=== PATIENT | female | born 1965 | race Caucasian/White ===

== ENCOUNTER 2017-03-16 08:01 | Observation (INO) ==
--- NOTE | 2017-03-16 08:12 | Emergency Department Note ---
Disposition Clinical Impression: Hyponatremia Chest pain Qualifiers: Chest pain type: unspecified Qualified Code(s): R07.9 - Chest pain, unspecified Disposition: Admitted As Inpatient Condition: Good Referrals: Leonard Sosa DO [Primary Care Provider] - Forms: ED Satisfaction Letter Time of Disposition: 11:15 Chest Pain HPI - General Chief Complaint: ED Chest Pain Stated Complaint: chest pain, tingling tongue, nausea Time Seen by Provider: 03/16/17 08:05 Source: patient, EMS Mode of arrival: ambulatory Limitations: no limitations Vital Signs Reviewed: Yes Nursing Notes Reviewed: Yes - History of Present Illness HPI Narrative: Patient is a 51-year-old female with past medical history of anxiety, depression , hypertension, COPD. She presents today due to right-sided chest pain, shortness of breath, numbness and tingling from head to toe. Patient states that she took her Geodon, Valium, Benadryl, blood pressure medication this morning. Around 7:20 AM, she began having right-sided chest pain with no radiation, associated shortness of breath. She was at rest when this chest pain occurred. She said that she feels very anxious. Denies any nausea, vomiting, fevers, abdominal pain, weakness. She also reports allergy to naproxen. However, she states that her allergy is nausea. She says that she may have taken naproxen this morning by accident. Severity scale (1-10): 10 - Related Data Home Medications Medication Instructions Recorded Confirmed Aclidinium [place] [Tudorza 400 mcg IH BID 04/06/15 04/06/15 Pressair] Albuterol Sulfate [Albuterol 2 puff IH Q4HR 04/06/15 04/06/15 Inhaler] Aspirin 81 mg PO QAM 04/06/15 04/06/15 BuPROPion SR (12 HR) [Wellbutrin 150 mg PO BID 04/06/15 04/06/15 SR] Budesonide/Formoterol Fumarate 2 puff IH BID 04/06/15 04/06/15 [Symbicort 160-4.5 Mcg Inhaler] Calcium Carbonate/Vitamin D3 1 tab PO DAILY 04/06/15 04/06/15 [Calcium 600+D Softgel] Celecoxib [Celebrex] 200 mg PO BID 04/06/15 04/06/15 Diazepam [Valium] 10 mg PO BID 04/06/15 04/06/15 Flexeril 04/06/15 04/06/15 Gabapentin [Neurontin] 300 mg PO TID 04/06/15 04/06/15 Hydrochlorothiazide 25 mg PO DAILY 04/06/15 04/06/15 Lactose-Reduced Food [Ensure 237 ml PO QAM 04/06/15 04/06/15 Complete] Levothyroxine Sodium [Synthroid] 25 mcg PO QAM 04/06/15 04/06/15 OxyCODONE/APAP 10/325 [Percocet 1 tab PO QID 04/06/15 04/06/15 10/325] Ziprasidone HCl [Geodon] 40 mg PO QAM 04/06/15 04/06/15 Ziprasidone HCl [Geodon] 160 mg PO HS 04/06/15 04/06/15 Zolpidem Tartrate [Ambien] 10 mg PO HS 04/06/15 04/06/15 Previous Rx's Medication Instructions Recorded Clindamycin HCl 300 mg PO TID #6 capsule 04/08/15 Albuterol Sulfate [Proair HFA] 2 puff IH Q4HR 2 Days 06/01/15 Amoxicillin/Clavulanate [Augmentin] 875 mg PO BID 10 Days 06/01/15 MethylPREDNISolone [Medrol] 4 mg PO DAILY #21 tablet 06/01/15 Mupirocin [Bactroban Oint] 1 appl NS BID 14 Days 06/01/15 Bacitracin 1 appl TP BID #1 each 12/15/15 Lidocaine Patch [Lidoderm 5% patch] 1 each TP DAILY #10 adh..patch 12/15/15 Bacitracin 28 gm TP 2-3XD PRN #28 oint...g. 10/01/16 HydrOXYzine 10 mg PO TID #30 tablet 10/01/16 diazePAM [Valium] 5 mg PO BID #8 tablet 10/01/16 Cyclobenzaprine [Flexeril] 10 mg PO Q8H PRN #10 tablet 01/09/17 Lidocaine Patch [Lidoderm 5% patch] 1 each TP DAILY #3 adh..patch 01/12/17 Allergies Allergy/AdvReac Type Severity Reaction Status Date / Time acetaminophen [From Midol] Allergy Difficulty Verified 03/16/17 08:15 Breathing Buspirone [From BuSpar] Allergy Unresponsiv Verified 03/16/17 08:15 e ibuprofen Allergy Difficulty Verified 03/16/17 08:15 Breathing pamabrom [From Midol] Allergy Difficulty Verified 03/16/17 08:15 Breathing propoxyphene [From Darvon] AdvReac Nausea Verified 03/16/17 08:15 All systems ED: reviewed and negative except as stated. Constitutional: Denies: fever Cardiovascular: Reports: chest pain Respiratory: Reports: dyspnea Gastrointestinal: Denies: abdominal pain, nausea, vomiting, diarrhea Neurological: Reports: numbness, paresthesias. Denies: headache, weakness Psychiatric: Reports: anxiety. 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 Appears somewhat anxious. She is easily distractible. She is complaining of crushing chest pain but then when asked about other medical history, she shows no signs of pain and is laughing and joking. - General Limitations: no limitations General appearance: alert, in no apparent distress - Head Head exam: atraumatic, normocephalic, normal inspection - Eye Eye exam: Present: normal appearance, PERRL, EOMI - ENT ENT exam: normal exam, normal oropharynx, mucous membranes moist - Neck Neck exam: Present: normal inspection, full ROM, trachea midline - Chest Chest inspection: Present: normal inspection, symmetric chest wall rise, tenderness (Tenderness to palpation of right sided chest wall) - Respiratory Respiratory exam: Present: normal lung sounds bilaterally - Cardiovascular Cardiovascular exam: Present: regular rate, normal rhythm, normal heart sounds - Abdominal Exam Abdominal exam: Present: soft, Non-Tender. Absent: tenderness, distention, guarding, rebound, rigidity - Extremities Exam Extremities exam: Present: normal inspection, full ROM. Absent: tenderness, pedal edema - Neurological Exam Neurological exam: Present: alert, oriented X3, CN II-XII intact, motor sensory deficit (Patient reports decreased sensation to light touch of bilateral lower extremities from knees down and decreased sensation in perioral region. No other focal neuro deficits.) - Psychiatric Psychiatric exam: Present: anxious - Skin Skin exam: Present: warm, dry, intact, normal color Course Course Narrative: Patient laughing, joking on exam. Appears somewhat anxious. She is easily distractible. She is complaining of crushing chest pain but then when asked about other medical history, she shows no signs of pain and is laughing and joking. Patient reports decreased sensation to light touch of bilateral lower extremities from knees down and decreased sensation in perioral region. No other focal neuro deficits. Vitals within normal limits. The rest of the physical exam was benign. Patient has been here multiple times for chest pain and was sent home. She has not had a heart The past. We will perform cardiac workup including EKG, chest x-ray, troponin. We will then perform a second troponin 2 hours later. If negative, we will likely send the patient home. This likely due to anxiety. EKG shows normal sinus rhythm with no acute ST changes. 10:32 and troponin negative. CBC shows no major abnormalities. BMP shows hyponatremia at 125. We will start normal saline. Patient still having chest pain. No heart catheter within the last year. We will admit for further chest pain workup and management of hyponatremia. Vital Signs Temperature 98.1 F 03/16/17 08:03 Pulse Rate 95 03/16/17 08:03 Respiratory Rate 18 03/16/17 08:03 Blood Pressure 147/102 03/16/17 08:03 O2 Sat by Pulse Oximetry 100 03/16/17 08:03 Temperature 98.1 F 03/16/17 08:03 Pulse Rate 94 03/16/17 11:10 Respiratory Rate 18 03/16/17 11:10 Blood Pressure 142/98 03/16/17 11:10 O2 Sat by Pulse Oximetry 98 03/16/17 11:10 Oxygen Delivery Oxygen Delivery Room Air Chest Pain - MDM Narrative Medical decision making narrative: and troponin negative. CBC shows no major abnormalities. BMP shows hyponatremia at 125. We will start normal saline. Patient still having chest pain. No heart catheter within the last year. We will admit for further chest pain workup and management of hyponatremia. - Medical Records Medical records reviewed: Yes I reviewed the patient's medical records. - Lab Data Lab results reviewed: Yes I reviewed the patient's lab results. Result diagrams: 03/16/17 08:58 03/16/17 08:58 Lab Results 03/16/17 03/16/17 03/16/17 Range/Units 08:58 08:58 08:58 WBC 5.1 (4.3-11.1) K/mcL RBC 4.14 (3.82-4.97) M/mcL Hgb 13.5 (11.5-15.4) g/dL Hct 37.2 (35.3-44.9) % MCV 89.9 (83.0-100.0) fL MCH 32.6 (28.0-33.3) pg MCHC 36.3 H (31.6-35.5) g/dL RDW 11.4 L (11.5-14.5) % Plt Count 335 (140-400) K/mcL MPV 8.2 L (9.4-12.4) fL Immature Gran % 0.2 (0-4) % Seg Neutrophils % 74.8 % Lymphocytes % 16.5 % Monocytes % 7.9 % Eosinophils % 0.2 % Basophils % 0.4 % Neutrophils # 3.8 (1.6-8.9) K/mcL Lymphocytes # 0.8 (0.6-4.6) K/mcL Monocytes # 0.4 (0.0-1.3) K/mcL Eosinophils # 0.0 (0.0-0.6) K/mcL Basophils # 0.0 (0.0-0.2) K/mcL PT 10.8 (9.4-12.1) Seconds INR 1.0 APTT 39.7 H (26.0-36.0) Seconds Sodium 125 L (136-145) mEq/L Potassium 3.7 (3.5-4.5) mEq/L Chloride 93 L (98-109) mEq/L Carbon Dioxide 27 (19-29) mEq/L BUN 8 (7-20) mg/dL Creatinine 0.74 (0.57-1.11) mg/dL Est GFR ( Amer) > 60 (> 60) Est GFR (Non-Af Amer) > 60 (> 60) BUN/Creatinine Ratio 11 (6-26) Glucose 99 (70-99) mg/dL Calculated Osmolality 258 L (280-300) Calcium 9.0 (8.6-10.8) mg/dL Troponin I (0-0.03) ng/mL 03/16/17 Range/Units 08:58 WBC (4.3-11.1) K/mcL RBC (3.82-4.97) M/mcL Hgb (11.5-15.4) g/dL Hct (35.3-44.9) % MCV (83.0-100.0) fL MCH (28.0-33.3) pg MCHC (31.6-35.5) g/dL RDW (11.5-14.5) % Plt Count (140-400) K/mcL MPV (9.4-12.4) fL Immature Gran % (0-4) % Seg Neutrophils % % Lymphocytes % % Monocytes % % Eosinophils % % Basophils % % Neutrophils # (1.6-8.9) K/mcL Lymphocytes # (0.6-4.6) K/mcL Monocytes # (0.0-1.3) K/mcL Eosinophils # (0.0-0.6) K/mcL Basophils # (0.0-0.2) K/mcL PT (9.4-12.1) Seconds INR APTT (26.0-36.0) Seconds Sodium (136-145) mEq/L Potassium (3.5-4.5) mEq/L Chloride (98-109) mEq/L Carbon Dioxide (19-29) mEq/L BUN (7-20) mg/dL Creatinine (0.57-1.11) mg/dL Est GFR ( Amer) (> 60) Est GFR (Non-Af Amer) (> 60) BUN/Creatinine Ratio (6-26) Glucose (70-99) mg/dL Calculated Osmolality (280-300) Calcium (8.6-10.8) mg/dL Troponin I 0.00 (0-0.03) ng/mL - Radiology Data Radiology results reviewed: Yes I reviewed the patient's radiology results. Chest X-Ray 03/16/17 08:06 IMPRESSION: No acute cardiopulmonary process. D/ / 03/16/2017 09:50:25 Conchita Pack MD / michael Interpreting Provider: Conchita Pack MD - EKG Data EKG attestation: Yes I reviewed and interpreted this EKG. EKG results narrative: 03/16/2017 at 08:13. Normal sinus rhythm. Rate 94. VA 144. QRS 97. QTc 414. Normal axis. Right bundle branch block in lead V1, V2. No acute ST elevation or depression. No acute changes from previous EKG on 01/12/2017. Maria R - Maria R Situation: Demographics, MOA Background: Presenting Complaint, Relevant PMH, Meds, & Allergies Assessment: Vital Signs, Course and respsone to treatment, Exam Concerns, Patient/Family Expectation, Pertinant Lab Results Recommendation: Barrier(s) to disposition, Recommendation based on pending studies, treatments, or consults Maria R Report Given to: Dr. Sara Heck Repor Time: 11:15
[2017-03-16] MEDS ORDERED: Nitroglycerin 0.4 MG TAB.SUBL SL PRN (08:21)
[2017-03-16] MEDS ORDERED: Aspirin 325 MG TABLET PO ONE (08:21)
--- NOTE | 2017-03-16 08:28 | Emergency Department Note ---
Disposition Clinical Impression: Chest pain, Hyponatremia Disposition: Admitted As Inpatient Condition: Good General Adult HPI - General Chief complaint: ED Chest Pain Stated complaint: chest pain, tingling tongue, nausea Time Seen by Provider: 03/16/17 08:05 Source: patient, EMS Mode of arrival: ambulatory Limitations: no limitations Nursing Notes Reviewed: Yes Vital Signs Reviewed: Yes - History of Present Illness Pain Scale: 10 - Related Data Home Medications Medication Instructions Recorded Confirmed Aclidinium [place] [Tudorza 400 mcg IH BID 04/06/15 04/06/15 Pressair] Albuterol Sulfate [Albuterol 2 puff IH Q4HR 04/06/15 04/06/15 Inhaler] Aspirin 81 mg PO QAM 04/06/15 04/06/15 BuPROPion SR (12 HR) [Wellbutrin 150 mg PO BID 04/06/15 04/06/15 SR] Budesonide/Formoterol Fumarate 2 puff IH BID 04/06/15 04/06/15 [Symbicort 160-4.5 Mcg Inhaler] Calcium Carbonate/Vitamin D3 1 tab PO DAILY 04/06/15 04/06/15 [Calcium 600+D Softgel] Celecoxib [Celebrex] 200 mg PO BID 04/06/15 04/06/15 Diazepam [Valium] 10 mg PO BID 04/06/15 04/06/15 Flexeril 04/06/15 04/06/15 Gabapentin [Neurontin] 300 mg PO TID 04/06/15 04/06/15 Hydrochlorothiazide 25 mg PO DAILY 04/06/15 04/06/15 Lactose-Reduced Food [Ensure 237 ml PO QAM 04/06/15 04/06/15 Complete] Levothyroxine Sodium [Synthroid] 25 mcg PO QAM 04/06/15 04/06/15 OxyCODONE/APAP 10/325 [Percocet 1 tab PO QID 04/06/15 04/06/15 10/325] Ziprasidone HCl [Geodon] 40 mg PO QAM 04/06/15 04/06/15 Ziprasidone HCl [Geodon] 160 mg PO HS 04/06/15 04/06/15 Zolpidem Tartrate [Ambien] 10 mg PO HS 04/06/15 04/06/15 Previous Rx's Medication Instructions Recorded Clindamycin HCl 300 mg PO TID #6 capsule 04/08/15 Albuterol Sulfate [Proair HFA] 2 puff IH Q4HR 2 Days 06/01/15 Amoxicillin/Clavulanate [Augmentin] 875 mg PO BID 10 Days 06/01/15 MethylPREDNISolone [Medrol] 4 mg PO DAILY #21 tablet 06/01/15 Mupirocin [Bactroban Oint] 1 appl NS BID 14 Days 06/01/15 Bacitracin 1 appl TP BID #1 each 12/15/15 Lidocaine Patch [Lidoderm 5% patch] 1 each TP DAILY #10 adh..patch 12/15/15 Bacitracin 28 gm TP 2-3XD PRN #28 oint...g. 10/01/16 HydrOXYzine 10 mg PO TID #30 tablet 10/01/16 diazePAM [Valium] 5 mg PO BID #8 tablet 10/01/16 Cyclobenzaprine [Flexeril] 10 mg PO Q8H PRN #10 tablet 01/09/17 Lidocaine Patch [Lidoderm 5% patch] 1 each TP DAILY #3 adh..patch 01/12/17 Allergies Allergy/AdvReac Type Severity Reaction Status Date / Time acetaminophen [From Midol] Allergy Difficulty Verified 03/16/17 08:15 Breathing Buspirone [From BuSpar] Allergy Unresponsiv Verified 03/16/17 08:15 e ibuprofen Allergy Difficulty Verified 03/16/17 08:15 Breathing pamabrom [From Midol] Allergy Difficulty Verified 03/16/17 08:15 Breathing propoxyphene [From Darvon] AdvReac Nausea Verified 03/16/17 08:15 Past Medical History - Past Medical History Medical history: Reports: arthritis, asthma, COPD, hypertension Surgical history: Reports: cholecystectomy, hysterectomy, orthopedic, other ( Multiple surgeries on right lower leg and ankle) Psychiatric history: Reports: anxiety, depression, panic disorder, schizophrenia , 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 - Social History Smoking Status: Former smoker Smokeless Tobacco Status: No Alcohol use: Reports: none Drug use: Reports: none Physical Exam - General Limitations: no limitations General appearance: alert, in no apparent distress Course Vital Signs Temperature 98.1 F 03/16/17 08:03 Pulse Rate 95 03/16/17 08:03 Respiratory Rate 18 03/16/17 08:03 Blood Pressure 147/102 03/16/17 08:03 O2 Sat by Pulse Oximetry 100 03/16/17 08:03 Temperature 98.1 F 03/16/17 08:03 Pulse Rate 94 03/16/17 11:10 Respiratory Rate 18 03/16/17 11:46 Blood Pressure 153/102 03/16/17 11:46 O2 Sat by Pulse Oximetry 98 03/16/17 11:10 Oxygen Delivery Oxygen Delivery Room Air Medical Decision Making - MDM Narrative Medical decision making narrative: I examined this patient and my medical decision-making was reviewed with the STRUCTURAL LAYOUT WORKER/PA/Advanced Practice Nurse/Resident Physician. I agree with the documented findings, disposition and treatment plan as described except to the extent set forth below. Patient was seen on arrival this morning with EMS and Dr. Fowler, agree with his evaluation and management plan, supervise care the patient's stay. Patient at this morning she was taking her medications she tells that she took what she thought was her right amount of medication and then felt tingling in her mouth and pain in her chest and her legs seem like she was very anxious. She has been seen here before for chest pain workup but no previous heart catheter that we can find. She says her pain is about a tender chest but when she is very distractible. I am thinking this is more of an anxiety situation but we are going to work her up for chest pain. Since her pain started about an hour ago show need a repeat troponin lesser first one is elevated, her current EKG shows no signs of acute ACS. She is in agreement with this plan. Chest X-Ray 03/16/17 08:06 IMPRESSION: No acute cardiopulmonary process. D/ / 03/16/2017 09:50:25 Conchita Pack MD / michael Interpreting Provider: Conchita Pack MD 1008 hrs.: Patient's troponins back as negative, her sodium is low which has been in the past this may be medication related. She still having some chest discomfort. Then he gave her medication for that. And talked her about admission to the hospital. Impression is hyponatremia, chest pain rule out ACS. 1157 hrs.: Patient's agreement with the admission. Spoke with hospitalist as except that the patient. - Lab Data Result diagrams: 03/16/17 08:58 07/17/17 08:58 Lab Results 03/16/17 03/16/17 03/16/17 Range/Units 08:58 08:58 08:58 WBC 5.1 (4.3-11.1) K/mcL RBC 4.14 (3.82-4.97) M/mcL Hgb 13.5 (11.5-15.4) g/dL Hct 37.2 (35.3-44.9) % MCV 89.9 (83.0-100.0) fL MCH 32.6 (28.0-33.3) pg MCHC 36.3 H (31.6-35.5) g/dL RDW 11.4 L (11.5-14.5) % Plt Count 335 (140-400) K/mcL MPV 8.2 L (9.4-12.4) fL Immature Gran % 0.2 (0-4) % Seg Neutrophils % 74.8 % Lymphocytes % 16.5 % Monocytes % 7.9 % Eosinophils % 0.2 % Basophils % 0.4 % Neutrophils # 3.8 (1.6-8.9) K/mcL Lymphocytes # 0.8 (0.6-4.6) K/mcL Monocytes # 0.4 (0.0-1.3) K/mcL Eosinophils # 0.0 (0.0-0.6) K/mcL Basophils # 0.0 (0.0-0.2) K/mcL PT 10.8 (9.4-12.1) Seconds INR 1.0 APTT 39.7 H (26.0-36.0) Seconds Sodium 125 L (136-145) mEq/L Potassium 3.7 (3.5-4.5) mEq/L Chloride 93 L (98-109) mEq/L Carbon Dioxide 27 (19-29) mEq/L BUN 8 (7-20) mg/dL Creatinine 0.74 (0.57-1.11) mg/dL Est GFR ( Amer) > 60 (> 60) Est GFR (Non-Af Amer) > 60 (> 60) BUN/Creatinine Ratio 11 (6-26) Glucose 99 (70-99) mg/dL Calculated Osmolality 258 L (280-300) Calcium 9.0 (8.6-10.8) mg/dL Troponin I (0-0.03) ng/mL 03/16/17 03/16/17 Range/Units 08:58 10:49 WBC (4.3-11.1) K/mcL RBC (3.82-4.97) M/mcL Hgb (11.5-15.4) g/dL Hct (35.3-44.9) % MCV (83.0-100.0) fL MCH (28.0-33.3) pg MCHC (31.6-35.5) g/dL RDW (11.5-14.5) % Plt Count (140-400) K/mcL MPV (9.4-12.4) fL Immature Gran % (0-4) % Seg Neutrophils % % Lymphocytes % % Monocytes % % Eosinophils % % Basophils % % Neutrophils # (1.6-8.9) K/mcL Lymphocytes # (0.6-4.6) K/mcL Monocytes # (0.0-1.3) K/mcL Eosinophils # (0.0-0.6) K/mcL Basophils # (0.0-0.2) K/mcL PT (9.4-12.1) Seconds INR APTT (26.0-36.0) Seconds Sodium (136-145) mEq/L Potassium (3.5-4.5) mEq/L Chloride (98-109) mEq/L Carbon Dioxide (19-29) mEq/L BUN (7-20) mg/dL Creatinine (0.57-1.11) mg/dL Est GFR ( Amer) (> 60) Est GFR (Non-Af Amer) (> 60) BUN/Creatinine Ratio (6-26) Glucose (70-99) mg/dL Calculated Osmolality (280-300) Calcium (8.6-10.8) mg/dL Troponin I 0.00 0.00 (0-0.03) ng/mL
[2017-03-16 09:09] LABS: Basophils % 0.4 %; Eosinophils % 0.2 %; Hematocrit 37.2 % (35.3-44.9); Hemoglobin 13.5 g/dL (11.5-15.4); Immature Granulocytes % 0.2 % (0-4); Lymphocytes # 0.8 K/mcL (0.6-4.6); Lymphocytes % 16.5 %; Mean Corpuscular HGB Conc 36.3 g/dL (31.6-35.5); Mean Corpuscular Hemoglobin 32.6 pg (28.0-33.3); Mean Corpuscular Volume 89.9 fL (83.0-100.0); Mean Platelet Volume 8.2 fL (9.4-12.4); Monocytes # 0.4 K/mcL (0.0-1.3); Monocytes % 7.9 %; Neutrophils # 3.8 K/mcL (1.6-8.9); Platelet Count 335 K/mcL (140-400); Red Blood Count 4.14 M/mcL (3.82-4.97); Red Cell Distribution Width 11.4 % (11.5-14.5); Segmented Neutrophils % 74.8 %
[2017-03-16 09:16] LABS: Prothrombin Time 10.8 Seconds (9.4-12.1)
[2017-03-16 09:18] LABS: Activated Partial Thrombo Time 39.7 Seconds (26.0-36.0)
[2017-03-16 09:20] LABS: BUN/Creatinine Ratio 11 (6-26); Blood Urea Nitrogen 8 mg/dL (7-20); Carbon Dioxide 27 mEq/L (19-29); Chloride 93 mEq/L (98-109); Glucose 99 mg/dL (70-99); Osmolality,Calculated 258 (280-300); Potassium 3.7 mEq/L (3.5-4.5); Sodium 125 mEq/L (136-145); eGFR For African Americans > 60 (> 60); eGFR For Non-African Americans > 60 (> 60)
[2017-03-16] MEDS ORDERED: *HR* OxyCODONE/APAP 10/325 TABLET PO ONE (10:33)
[2017-03-16] MEDS ORDERED: Naloxone 0.4 MG/ML INJ IVP PRN (14:18)
[2017-03-16] MEDS ORDERED: Ondansetron 4 MG/2 ML VIAL IVP PRN (14:24)
[2017-03-16] MEDS ORDERED: Ipratropium/Albuterol Neb 3 ML IH PRN (14:26)
[2017-03-16] MEDS ORDERED: 0.9 % Sodium Chloride 1,000 ML IVC SCH (14:30)
[2017-03-16] MEDS: Gabapentin 300 MG CAPSULE PO SCH ×2 (15:09→20:12)
[2017-03-16] MEDS: *HR* OxyCODONE/APAP 10/325 TABLET PO PRN (15:10)
--- NOTE | 2017-03-16 15:15 | Internal Med History&Physical ---
Date of Encounter: 03/16/17 Time of Encounter: 14:30 Assessment and Plan (1) Chest pain Current visit: Yes Status: Acute Atypical chest pain, currently chest pain-free. Initial troponin and EKG are unremarkable. Chest x-ray reviewed independently, shows hyperinflated lung gama bilaterally, no focal infiltrates or effusion. Continue telemetry monitoring and trend troponins. Continue aspirin. Nuclear stress test in a.m. Qualifiers: Chest pain type: unspecified Qualified Code(s): R07.9 - Chest pain, unspecified (2) Hyponatremia Current visit: Yes Status: Acute Patient Is noted to be on multiple SSRIs and psychotropic medications that could cause hyponatremia. No evidence of mental status changes. Check TSH, serum and urine osmolality and urine sodium. Limited IV hydration. Continue to monitor serum sodium. (3) Essential hypertension Current visit: Yes Status: Chronic (4) COPD (chronic obstructive pulmonary disease) Current visit: Yes Status: Chronic Not noted to be in acute exacerbation. Continue when necessary bronchodilators and inhaled corticosteroids. Supplemental oxygen as needed. Qualifiers: COPD type: unspecified COPD Qualified Code(s): J44.9 - Chronic obstructive pulmonary disease, unspecified (5) Schizoaffective disorder Current visit: Yes Status: Chronic Hold Wellbutrin and Zyprasidone for now; Qualifiers: Schizoaffective disorder type: bipolar Qualified Code(s): F25.0 - Schizoaffective disorder, bipolar type (6) Hypothyroidism Current visit: Yes Status: Chronic Continue levothyroxine. Check TSH level. Qualifiers: Hypothyroidism type: unspecified Qualified Code(s): E03.9 - Hypothyroidism , unspecified (7) Anxiety Current visit: Yes Status: Chronic Continue when necessary benzodiazepines and hydroxyzine. Internal Medicine - H&P: HPI Chief complaint: Chest pain Admitted From: Emergency Dept Plans for Post Hospital Care: Home History of present illness: Ms. Brunner is a 51 year old female with history of hypertension, COPD, hypothyroidism, schizophrenia/dipolar disorder/anxiety/depression presents with complaints of chest pain. Patient reports being in her usual state of health until this morning when she took her morning medications and had a cup of coffee and had a sudden onset of numbness spreading all over her body associated with generalized weakness and she was not able to move her arms or legs as usual. She also reports associated retrosternal chest pain, sharp, moderate to severe, constant pain associated with dizziness and shortness of breath, that was relieved with nitroglycerin and aspirin that she received by EMS and in the emergency room. Patient's symptoms gradually improved at this time. No reported fever, chills, nausea, vomiting or diarrhea. No similar previous episodes. She reports being on aspirin in the past but that her primary doctor took her off it for unclear reasons. Past Med Surg Social Fam HX - Past Medical History Medical history: arthritis, asthma, COPD, hypertension, migraine, thyroid disease Psychiatric history: anxiety, depression, panic disorder, schizophrenia, previous psychiatric hospitalization - Past Surgical History Surgical History: cholecystectomy, hysterectomy, orthopedic, other (Bilateral carpal tunnel release surgery), other (Tubal ligation, right leg surgery multiple times for unknown reasons) - Social History Smoking Status: Former smoker (Quit 1 year ago) Packs per day: 2 Smokeless Tobacco Status: No Alcohol use: none Drug use: none Occupational status: disabled Current living situation: Home, With Family Activity Level: Wheelchair bound Recent Out of Country Travel Within the Last 8 Weeks: No - Family History Mother Hx Family Cardiac Disorders: Yes (CAD) Hx Family Endocrine Disorder: Yes (Diabetes) Father Hx Family Cardiac Disorders: Yes (CAD) Hx Family Endocrine Disorder: Yes (Diabetes) Internal Medicine - H&P: Meds Aclidinium Peculiar [Tudorza Pressair] 1 puff IH BID 04/06/15 [History] Aspirin 81 mg PO QAM 04/06/15 [History] BuPROPion SR (12 HR) [Wellbutrin SR] 150 mg PO BID 04/06/15 [History] Budesonide/Formoterol Fumarate [Symbicort 160-4.5 Mcg Inhaler] 2 puff IH BID 03/14 [History] Calcium Carbonate/Vitamin D3 [Calcium 600+D Softgel] 1 tab PO DAILY 04/06/15 [ History] Gabapentin [Neurontin] 300 mg PO TID 04/06/15 [History] Hydrochlorothiazide 25 mg PO DAILY 04/06/15 [History] Lactose-Reduced Food [Ensure Complete] 237 ml PO QAM 04/06/15 [History] Levothyroxine Sodium [Synthroid] 25 mcg PO QAM 04/06/15 [History] OxyCODONE/APAP 10/325 [Percocet 10/325] 1 tab PO QID 04/06/15 [History] Ziprasidone HCl [Geodon] 40 mg PO QAM 04/06/15 [History] Ziprasidone HCl [Geodon] 160 mg PO HS 04/06/15 [History] Zolpidem Tartrate [Ambien] 10 mg PO HS 04/06/15 [History] Albuterol Sulfate [Proair HFA] 2 puff IH Q4HR 2 Days 06/01/15 [Rx] HydrOXYzine 10 mg PO TID #30 tablet 10/01/16 [Rx] Cyclobenzaprine [Flexeril] 10 mg PO Q8H PRN #10 tablet 01/09/17 [Rx] Lidocaine Patch [Lidoderm 5% patch] 1 patch TP DAILY 03/16/17 [History] Meloxicam [Mobic] 15 mg PO DAILY 03/16/17 [History] Omeprazole [PriLOSEC] 40 mg PO DAILY 03/16/17 [History] diazePAM [Valium] 10 mg PO BID 03/16/17 [History] Allergies acetaminophen [From Midol] Allergy (Verified 03/16/17 08:15) Difficulty Breathing Buspirone [From BuSpar] Allergy (Verified 03/16/17 08:15) Unresponsive ibuprofen Allergy (Verified 03/16/17 08:15) Difficulty Breathing pamabrom [From Midol] Allergy (Verified 03/16/17 08:15) Difficulty Breathing propoxyphene [From Darvon] Adverse Reaction (Verified 03/16/17 08:15) Nausea All Systems PM: A 10-system review of systems was performed and is negative for pertinent findings except as documented above in the HPI. - Constitutional Constitutional: lethargy, weakness, no chills, no fever(s), no night sweats - EENT Eyes: no change in vision, no discharge, no pain, no photophobia Ears: no ear discharge, no ear pain, no tinnitus Nose, mouth and throat: no dysphagia, no nasal discharge, no neck pain, no sore throat - Cardiovascular Cardiovascular ROS IM: chest pain, dyspnea, lightheadedness - Respiratory Respiratory: dyspnea, no cough, no wheezing, no excessive phlegm production - Gastrointestinal Gastrointestinal: no abdominal pain, no diarrhea, no hematemesis, no hematochezia, no melena, no nausea, no vomiting - Genitourinary Genitourinary: no change in urinary stream, no dysuria, no flank pain, no hematuria - Musculoskeletal Musculoskeletal ROS IM: numbness, stiffness - Integumentary Integumentary IM: no rash, no unusual bruising - Neurological Neurological ROS: dizziness, headache(s), numbness, weakness - Hematologic/Lymphatic Hematologic/Lymphatic: no easy bruising - Constitutional Vitals: Temp Pulse Resp BP Pulse Ox 98.6 F 79 15 149/94 96 03/16/17 12:17 03/16/17 12:17 03/16/17 12:17 03/16/17 12:03/16/17 12:17 General appearance: Present: cachectic, A&O X 3, answers questions appropriately - Respiratory Respiratory exam: Present: CTAB (Coarse breath sounds bilaterally). Absent: accessory muscle use, rales, rhonchi, wheezes - Cardiovascular Cardiovascular exam: Present: RRR, +S1, +S2. Absent: diastolic murmur, gallop, rubs, systolic murmur - GI/Abdominal GI/Abdominal exam: Present: normal bowel sounds, soft, no peritoneal signs. Absent: distended, tenderness - Extremities Exam Extremities exam: Present: full ROM, warm, radial pulses palpable and symetrical. Absent: calf tenderness, cyanotic, pedal edema - Neurological Exam Neurological exam: Present: CN II-XII intact, oriented X3, no focal deficits ( Decreased motor power in right lower extremity). Absent: pronater drift, facial droop, speech deficit - Skin Skin exam: Present: dry, intact Internal Med - H&P Results - Labs CBC & Chem 7: 03/16/17 08:58 03/16/17 08:58 - EKG Data -: EKG Interpreted by Myself EKG shows normal: sinus rhythm Rate: normal
[2017-03-16] MEDS ORDERED: *HR* OxyCODONE/APAP 10/325 TABLET PO SCH (17:00)
[2017-03-16] MEDS: diazePAM 5 MG TABLET PO SCH (20:12)
[2017-03-16] MEDS: (Aclidinium Bromide [Tudorza Pressair] 1 PUFF) IH SCH (20:12)
[2017-03-16 20:31] LABS: Sodium, Urine < 20.0 mEq/L
[2017-03-16 21:01] LABS: Osmolality,Urine 107 mOsm/kg (300-1090)
[2017-03-16] MEDS: Budesonide/Formoterol 160/4.5 MDI IH SCH (21:15)
[2017-03-17 02:50] LABS: Basophils % 0.6 %; Eosinophils # 0.1 K/mcL (0.0-0.6); Eosinophils % 1.7 %; Hematocrit 40.2 % (35.3-44.9); Hemoglobin 14.2 g/dL (11.5-15.4); Immature Granulocytes % 0.3 % (0-4); Lymphocytes # 1.1 K/mcL (0.6-4.6); Lymphocytes % 30.1 %; Mean Corpuscular HGB Conc 35.3 g/dL (31.6-35.5); Mean Corpuscular Hemoglobin 32.4 pg (28.0-33.3); Mean Corpuscular Volume 91.8 fL (83.0-100.0); Mean Platelet Volume 8.3 fL (9.4-12.4); Monocytes # 0.5 K/mcL (0.0-1.3); Monocytes % 13.8 %; Neutrophils # 1.9 K/mcL (1.6-8.9); Platelet Count 316 K/mcL (140-400); Red Blood Count 4.38 M/mcL (3.82-4.97); Red Cell Distribution Width 11.7 % (11.5-14.5); Segmented Neutrophils % 53.5 %
[2017-03-17 03:09] LABS: BUN/Creatinine Ratio 14 (6-26); Blood Urea Nitrogen 11 mg/dL (7-20); Calcium 8.9 mg/dL (8.6-10.8); Carbon Dioxide 28 mEq/L (19-29); Chloride 102 mEq/L (98-109); Chol/HDL Ratio 4.4 (0-4.9); Cholesterol 217 mg/dL (< 200); Glucose 90 mg/dL (70-99); HDL Cholesterol 49 mg/dL (40-59); LDL Cholesterol,Calculated 144 mg/dL (0-99); Magnesium 2.1 mg/dL (1.6-2.6); Osmolality,Calculated 279 (280-300); Potassium 3.8 mEq/L (3.5-4.5); Triglycerides 119 mg/dL (< 150); eGFR For African Americans > 60 (> 60); eGFR For Non-African Americans > 60 (> 60)
[2017-03-17 03:10] LABS: Sodium 135 mEq/L (136-145)
[2017-03-17] MEDS ORDERED: Regadenoson 0.4 MG/5 ML SYRINGE IVP ONE (06:02)
--- NOTE | 2017-03-17 06:25 | Electrocardiograph Report ---
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
[2017-03-17] MEDS ORDERED: Levothyroxine 25 MCG TABLET PO SCH (06:30)
[2017-03-17] MEDS: Budesonide/Formoterol 160/4.5 MDI IH SCH ×2 (07:51→11:22)
[2017-03-17] MEDS ORDERED: Aspirin 81 MG TAB.CHEW PO SCH (09:00)
[2017-03-17] MEDS ORDERED: hydroCHLOROthiazide 25 MG TABLET PO SCH (09:00)
[2017-03-17] MEDS: *HR* OxyCODONE/APAP 10/325 TABLET PO PRN ×2 (09:45→15:46)
[2017-03-17] MEDS: diazePAM 5 MG TABLET PO SCH (09:45)
[2017-03-17] MEDS: Gabapentin 300 MG CAPSULE PO SCH (09:45)
[2017-03-17] MEDS: (Aclidinium Bromide [Tudorza Pressair] 1 PUFF) IH SCH (09:48)
--- NOTE | 2017-03-17 10:45 | Nuclear Medicine Stress Report ---
Regadenoson Nuclear Stress Name: Doc Brunner Date of Study: 03/17/2017 Date: 1965 Ht: 61.0 in Medical Record#: [id number] Age: 51 Wt: 98.0 lb Gender: Female Order #: [id number] Location: [facility] Room: [facility] Supervising Provider: Liss Fernando CNP Reading Physician: Alexandra Rosenbaum DO Ordering Physician: Alejandra Michael CNP Primary Care Physician: Leonard Sosa DO Stress Technologist: Salome Meek, VERENICE,CPFT [employer] Supervisor: Carolin Price Indications: Chest Pain Impression: Perfusion imaging was negative for ischemia or infarct. Pharmacologic ECG was negative for ischemia at the level of heart rate achieved. Gated EF = 67%. History: Hypertension Stress Test Summary: Stress Test Type: Pharmacologic Regadenoson 0.4mg/5ml given IV Baseline Information: Initial Heart Rate: 75 Blood Pressure: 118/82 Stress Information: Test Terminated Due to (primary): As per protocol Maximum Blood Pressure: 120/70 Maximum Heart Rate: 120 Percent Maximum Heart Rate Achieved: 71 Double Product: [id number] METS Reached: 1 Symptoms: Shortness of breath Nuclear Summary: SPECT myocardial perfusion imaging using Tc99m Sestamibi given intravenously was performed at rest and following cardiac stress testing. The resting images were obtained following initial dose of 9.7 mCi. Following stress an additional dose of 33.9 mCi was given at peak exercise or 30 seconds post regadenoson infusion. Medication Given: Time Medication Dose Units Route Findings: Stress Note * Resting ECG demonstrated normal sinus rhythm with RSR'. * Pharmacologic stress ECG is negative for ischemia at level of heart rate achieved. * No arrhythmias were noted during stress. * Patient had no chest pain during stress. Hemodynamic responses * Normal hemodynamic responses to pharmacologic stress. Study Quality * Study quality is good. Gated EF % * Gated EF = 67%. Left Ventricle * The left ventricle is not dilated. TID * No evidence of transient ischemic dilatation. Lung Uptake * There is no evidence of increase lung uptake. NORMALS * Normal wall motion. * Normal segmental perfusion in stress. * Normal Segmental Perfusion in rest. Updated by Alexandra Rosenbaum on 03/17/2017 10:39:24 AM electronically signed on 03/17/2017 10:40:20 AM with status of Final
[2017-03-17 11:59] VITALS: BP 119/78
--- NOTE | 2017-03-17 13:00 | Discharge Summary ---
Date of Encounter: 03/17/17 Time of Encounter: 10:45 - Discharge Diagnosis (1) Chest pain Priority: Primary Status: Acute Comments: Atypical chest pain. Patient denies chest pain at this time. Troponins were negative. EKG was sinus rhythm with rate of 94, OH interval 144 QT 362, QTc 414. Stress test was negative for ischemia or infarct. Gated EF was 67%. Patient feels that her chest pain is most likely due to anxiety, long history of anxiety and depression. Qualifiers: Chest pain type: unspecified Qualified Code(s): R07.9 - Chest pain, unspecified (2) Hyponatremia Priority: Secondary Status: Acute Comments: Sodium is 135. 125 on arrival. Improved and stable. (3) Essential hypertension Priority: Secondary Status: Chronic Comments: Well-controlled in inpatient setting. Continue home medications. (4) COPD (chronic obstructive pulmonary disease) Priority: Secondary Status: Chronic Comments: No acute exacerbation. Lungs are clear. Continue home medications. Qualifiers: COPD type: unspecified COPD Qualified Code(s): J44.9 - Chronic obstructive pulmonary disease, unspecified (5) Schizoaffective disorder Priority: Secondary Status: Chronic Comments: Chronic. Continue home medications. Qualifiers: Schizoaffective disorder type: bipolar Qualified Code(s): F25.0 - Schizoaffective disorder, bipolar type (6) Hypothyroidism Priority: Secondary Status: Chronic Comments: TSH within normal limits. Continue home medications. Qualifiers: Hypothyroidism type: unspecified Qualified Code(s): E03.9 - Hypothyroidism , unspecified - Discharge Medications Prescriptions: Aspirin 81 mg PO QAM #30 Simvastatin [Zocor] 10 mg PO DAILY #30 tablet Home Medications: Aclidinium Nikolai [Tudorza Pressair] 1 puff IH BID 04/06/15 [History] BuPROPion SR (12 HR) [Wellbutrin SR] 150 mg PO BID 04/06/15 [History] Budesonide/Formoterol Fumarate [Symbicort 160-4.5 Mcg Inhaler] 2 puff IH BID 03/14 [History] Calcium Carbonate/Vitamin D3 [Calcium 600+D Softgel] 1 tab PO DAILY 04/06/15 [ History] Gabapentin [Neurontin] 300 mg PO TID 04/06/15 [History] Hydrochlorothiazide 25 mg PO DAILY 04/06/15 [History] Lactose-Reduced Food [Ensure Complete] 237 ml PO QAM 04/06/15 [History] Levothyroxine Sodium [Synthroid] 25 mcg PO QAM 04/06/15 [History] OxyCODONE/APAP 10/325 [Percocet 10/325] 1 tab PO QID 04/06/15 [History] Ziprasidone HCl [Geodon] 40 mg PO QAM 04/06/15 [History] Ziprasidone HCl [Geodon] 160 mg PO HS 04/06/15 [History] Zolpidem Tartrate [Ambien] 10 mg PO HS 04/06/15 [History] Albuterol Sulfate [Albuterol Inhaler] 2 puff IH Q4HR 2 Days 06/01/15 [Rx] HydrOXYzine 10 mg PO TID #30 tablet 10/01/16 [Rx] Cyclobenzaprine [Flexeril] 10 mg PO Q8H PRN #10 tablet 01/09/17 [Rx] Lidocaine Patch [Lidoderm 5% patch] 1 patch TP DAILY 03/16/17 [History] Meloxicam [Mobic] 15 mg PO DAILY 03/16/17 [History] Omeprazole [PriLOSEC] 40 mg PO DAILY 03/16/17 [History] diazePAM [Valium] 10 mg PO BID 03/16/17 [History] Aspirin 81 mg PO QAM #30 03/17/17 [Rx] Simvastatin [Zocor] 10 mg PO DAILY #30 tablet 03/17/17 [Rx] Allergies/Adverse Reactions: Allergies acetaminophen [From Midol] Allergy (Verified 03/16/17 08:15) Difficulty Breathing Buspirone [From BuSpar] Allergy (Verified 03/16/17 08:15) Unresponsive ibuprofen Allergy (Verified 03/16/17 08:15) Difficulty Breathing pamabrom [From Midol] Allergy (Verified 03/16/17 08:15) Difficulty Breathing propoxyphene [From Darvon] Adverse Reaction (Verified 03/16/17 08:15) Nausea Procedures/tests Complete & Pending: Procedures Performed prior 72 hours Category Date Time Status NM man perf SPECT multi [NM] Routine Exams 03/16/17 14:26 Taken SP pharm nuclear stress Routine Y 03/17/17 07:15 Completed Date of admission: 03/16/17 11:33 Primary care physician: Leonard Sosa DO Discharging clinician: Radhika Chester Anticipated date of discharge: 03/17/17 - Patient Status Disposition: Home, Self-Care Functional capacity at discharge: independent ambulation Overall status at discharge: patient is back to baseline - Discharge Instructions Follow Up With: Leonard Sosa DO [Primary Care Provider] - Additional Instructions: Follow-up with your primary care physician in the next 7-10 days for a recheck. Resume your normal home medications. Return to the emergency department as needed for any new or concerning symptoms or if your [place] symptoms were chest pain return. - Diet and Activity Activity: resume usual activities as tolerated Diet: advance to your usual diet Hospital course: Ms. Brunner is a 51 year old female with a past medical history of schizoaffective disorder, COPD, hypertension, hypothyroidism, anxiety who presents to the emergency department yesterday with complaint of chest tightness. Patient states that at 7:30 yesterday morning she walked outside from her home and became numb from head to toe. She was just doing her normal daily activities at home, she was not overexerting herself, nor she at rest. She reports chest tightness that lasted approximately one hour. She reports that it was constant with associated dizziness and shortness of breath, no nausea or diaphoresis. EMS was brought to her home and the pressure was relieved with nitroglycerin. Her symptoms improved over time and she has been chest pain-free since she has been in the emergency room. She said nothing like this in the past. She also states that she had been on aspirin 81 mg in the past but that was stopped. She will need to restart it again and she states that she has refills. We discussed her starting the medication again at home. Patient's troponins were negative. EKG was normal sinus rhythm without ST elevation or depression. Her stress test was negative for ischemia or infarct. Gated EF was 67%. Her vital signs have been stable and within normal limits. Her labs are within normal limits. She was admitted with hyponatremia, sodium at 125 on arrival. One 35 today. Patient is on multiple psych medications which could be the culprit for causing hyponatremia. Cholesterol remains slightly elevated at 217, she will be discharged with a prescription for simvastatin 10 mg by mouth daily. We discussed smoking cessation. Patient states that she smokes approximately one half pack cigarettes every 2-3 days. She said she is not interested in a smoking cessation materials at this time. She is currently wearing a nicotine patch. She says that she will be okay when she goes home and does not need a refill on the patches. Currently taking Wellbutrin in an attempt to stop smoking. We discussed smoking cessation for probably 3-4 minutes, she is aware of the benefits and risks if she continues to smoke. Patient's labs and vitals have been stable and within normal limits. Patient is ready and appropriate for discharge. Time spent discussing smoking cessation with patient: 3 to 10 minutes - Time Spent with Patient Total time spent providing and/or coordinating discharge services: Less than 30 minutes - Constitutional Vitals: Temp Pulse Resp BP Pulse Ox 98.2 F 65 18 119/78 98 03/17/17 11:59 03/17/17 11:59 03/17/17 11:59 03/17/17 11:59 03/17/17 11:59 General appearance: Present: cachectic, A&O X 3, pleasant, no acute distress, answers questions appropriately - Head Head exam: Present: normal inspection - Eye Eye exam: Present: EOMI, normal appearance, conjuntiva pink - ENT ENT exam: Present: mucous membranes moist, normal exam, normal external ear exam - Neck Neck exam general surgery: Present: normal inspection. Absent: lymphadenopathy , tenderness - Respiratory Respiratory exam: Present: CTAB. Absent: accessory muscle use, decreased breath sounds, rales, respiratory distress, rhonchi, stridor, wheezes - Cardiovascular Cardiovascular exam: Present: RRR, +S1, +S2. Absent: diastolic murmur, systolic murmur - GI/Abdominal GI/Abdominal exam: Present: soft. Absent: distended, hepatomegaly, mass, pulsatile mass, tenderness - Neurological Exam Neurological exam: Present: alert, oriented X3, no focal deficits, strengths equal and symetr throughout. Absent: facial droop, speech deficit - Skin Skin exam: Present: dry, normal color, warm. Absent: rash
== END 2017-03-17 16:01 | disposition home or self-care (01) ==
LOC: EMEROO 08:01 → 3BNU 08:01
PROVIDERS: ADMIT Internal Medicine; ATTEND Nurse Practitioner Family

== ENCOUNTER 2017-12-05 10:21 | Observation (INO) ==
--- NOTE | 2017-12-05 10:53 | Emergency Department Note ---
Disposition Clinical Impression: Paresthesia, Samaoya disease, Hyponatremia Disposition: Still a Patient Condition: Undetermined Referrals: Leonard Sosa DO [Primary Care Provider] - Forms: ED Satisfaction Letter, Work/School Release Time of Disposition: 11:00 General Adult HPI - General Chief complaint: ED General Medical Stated complaint: numbness whole body, sick just like other day Time Seen by Provider: 12/05/17 10:29 Source: patient Limitations: no limitations Nursing Notes Reviewed: Yes Vital Signs Reviewed: Yes - History of Present Illness HPI Narrative: Alert and oriented nontoxic-appearing 52-year-old female presents for evaluation of multiple complaints. He complains of a generalized headache, chest pain that radiates in the left upper and left lower extremity, nausea, vomiting, nonproductive cough, subjective fever, and "numbness and tingling all over". She was seen at this facility 2 days ago for the numbness and tingling all over. At that time, she had a Calloway incised and drained to the top of her scalp. She was placed on sulfacetamide and griseofulvin. She states that she saw her primary care provider yesterday, who suggested she presented back to the emergency department for any worsening or continuation of symptoms. At the time of her visit 2 days ago, she did not have the complaints of chest pain , nausea, vomiting, or subjective fever. She denies any injury or trauma. She denies any weakness of the extremities. She states that she does have a history of anxiety, for which she takes Xanax on a regular basis for. Onset (ago): day(s) Location: head, chest Radiation: extremity Pain Scale: 10 Quality: aching Consistency: constant Improves with: nothing Worsens with: nothing Associated symptoms: Reports: cough, fever/chills, nausea/vomiting, other ( "numbness and tingling all over") - Related Data Home Medications Medication Instructions Recorded Confirmed BuPROPion SR (12 HR) [Wellbutrin 450 mg PO BID 04/06/15 12/05/17 SR] Budesonide/Formoterol Fumarate 2 puff IH BID 04/06/15 12/05/17 [Symbicort 160-4.5 Mcg Inhaler] Calcium Carbonate/Vitamin D3 1 tab PO DAILY 04/06/15 12/05/17 [Calcium 600+D Softgel] Gabapentin [Neurontin] 300 mg PO TID 04/06/15 12/05/17 Hydrochlorothiazide 25 mg PO DAILY 04/06/15 12/05/17 Levothyroxine Sodium [Synthroid] 25 mcg PO QAM 04/06/15 12/05/17 OxyCODONE/APAP 10/325 [Percocet 1 tab PO Q6H PRN 04/06/15 12/05/17 10/325] Ziprasidone HCl [Geodon] 40 mg PO QAM 04/06/15 12/05/17 Ziprasidone HCl [Geodon] 160 mg PO HS 04/06/15 12/05/17 Zolpidem Tartrate [Ambien] 10 mg PO HS 04/06/15 12/05/17 Meloxicam [Mobic] 15 mg PO DAILY 03/16/17 12/05/17 Omeprazole [PriLOSEC] 40 mg PO DAILY 03/16/17 12/05/17 diazePAM [Valium] 10 mg PO BID 03/16/17 12/05/17 Sennosides [Senna] 8.6 mg PO DAILY PRN 12/05/17 12/05/17 Previous Rx's Medication Instructions Recorded HydrOXYzine 10 mg PO TID #30 tablet 10/01/16 Cyclobenzaprine [Flexeril] 10 mg PO Q8H PRN #10 tablet 01/09/17 Aspirin 81 mg PO QAM #30 03/17/17 Simvastatin [Zocor] 10 mg PO DAILY #30 tablet 03/17/17 Allergies Allergy/AdvReac Type Severity Reaction Status Date / Time acetaminophen [From Midol] Allergy Difficulty Verified 12/05/17 10:22 Breathing Buspirone [From BuSpar] Allergy Unresponsiv Verified 12/05/17 10:22 e ibuprofen Allergy Difficulty Verified 12/05/17 10:22 Breathing pamabrom [From Midol] Allergy Difficulty Verified 12/05/17 10:22 Breathing propoxyphene [From Darvon] AdvReac Nausea Verified 12/05/17 10:22 All systems ED: reviewed and negative except as stated. Constitutional: Reports: as per HPI, fever, chills. Denies: weakness, weight change Eyes: Denies: eye pain, eye discharge, vision change ENT ED: Denies: ear pain, throat pain, dental pain, hearing loss, epistaxis, congestion, dysphagia Cardiovascular: Reports: as per HPI, chest pain. Denies: palpitations, dyspnea on exertion, edema, syncope Respiratory: Reports: as per HPI, cough. Denies: dyspnea, wheezes, hemoptysis, stridor, sputum production Gastrointestinal: Reports: as per HPI, nausea, vomiting. Denies: abdominal pain , diarrhea, constipation, hematemesis, melena, hematochezia Genitourinary: Denies: dysuria, frequency, hematuria, discharge Musculoskeletal: Denies: back pain, neck pain, arthralgia, myalgia Integumentary: Reports: as per HPI, other (Karyon top scalp). Denies: rash, abrasion, lesions Neurological: Reports: numbness (Whole-body), paresthesias (Whole-body). Denies : headache, weakness, confusion, abnormal gait, vertigo Psychiatric: Reports: as per HPI, anxiety. Denies: depression, suicidal thoughts, homicidal thoughts, auditory hallucinations, visual hallucinations Endocrine: Denies: fatigue Hematological/Lymphatic: Denies: easy bleeding, easy bruising Allergic/Immunologic: Denies: facial swelling, urticaria Past Medical History - Past Medical History Attestation: Yes The following information was validated with the patient. Source: patient, nursing notes reviewed Medical history: Reports: arthritis, asthma, COPD, hypertension, migraine, thyroid disease Surgical history: Reports: cholecystectomy, hysterectomy, orthopedic, other ( Bilateral carpal tunnel release surgery), other (Tubal ligation, right leg surgery multiple times for unknown reasons) Psychiatric history: Reports: anxiety, depression, panic disorder, schizophrenia , previous psychiatric hospitalization [employer] history: Reports: bilateral tubal ligation - Social History Smoking Status: Former smoker Smokeless Tobacco Status: No Alcohol use: Reports: none Drug use: Reports: none Physical Exam - General Limitations: no limitations General appearance: alert - Head Head exam: atraumatic, normocephalic - Expanded Head Exam Head exam physicial: Present: other 1 - Approximate 2 cm x 2 cm area of induration without palpable fluctuance. No surrounding cellulitis. No spontaneous discharge or drainage. - Eye Eye exam: Present: normal appearance, PERRL, EOMI. Absent: nystagmus - ENT ENT exam: mucous membranes moist - Neck Neck exam: Present: normal inspection, full ROM, trachea midline. Absent: lymphadenopathy - Chest Chest inspection: Present: normal inspection, symmetric chest wall rise - Respiratory Respiratory exam: Present: normal lung sounds bilaterally. Absent: respiratory distress, wheezes, stridor, accessory muscle use, prolonged expiratory phase - Cardiovascular Cardiovascular exam: Present: regular rate, normal rhythm, normal heart sounds - Abdominal Exam Abdominal exam: Present: soft, Non-Tender, normal bowel sounds - Extremities Exam Extremities exam: Present: normal inspection, full ROM. Absent: tenderness, pedal edema - Back Exam Back exam: Present: normal inspection, full ROM. Absent: tenderness - Neurological Exam Neurological exam: Present: alert, oriented X3, normal gait - Psychiatric Psychiatric exam: Present: normal affect, normal mood - Skin Skin exam: Present: warm, dry, normal color Course Vital Signs Temperature 98.6 F 12/05/17 10:22 Pulse Rate 111 12/05/17 10:22 Respiratory Rate 20 12/05/17 10:22 Blood Pressure 169/92 12/05/17 10:22 O2 Sat by Pulse Oximetry 99 12/05/17 10:22 Temperature 98.6 F 12/05/17 10:22 Pulse Rate 92 12/05/17 14:47 Respiratory Rate 18 12/05/17 14:47 Blood Pressure 132/102 12/05/17 14:47 O2 Sat by Pulse Oximetry 97 12/05/17 14:47 Oxygen Delivery Oxygen Delivery Room Air Medical Decision Making - Medical Records Medical records reviewed: Yes I reviewed the patient's medical records. - Lab Data Result diagrams: 12/05/17 11:07 12/05/17 11:07 Lab Results 12/05/17 12/05/17 12/05/17 Range/Units 11:05 11:05 11:07 WBC 4.6 (4.3-11.1) K/mcL RBC 4.06 (3.82-4.97) M/mcL Hgb 13.1 (11.5-15.4) g/dL Hct 37.4 (35.3-44.9) % MCV 92.1 (83.0-100.0) fL MCH 32.3 (28.0-33.3) pg MCHC 35.0 (31.6-35.5) g/dL RDW 12.0 (11.5-14.5) % Plt Count 459 H (140-400) K/mcL MPV 8.2 L (9.4-12.4) fL Immature Gran % 0.4 (0-4) % Seg Neutrophils % 61.9 % Lymphocytes % 26.0 % Monocytes % 10.4 % Eosinophils % 0.9 % Basophils % 0.4 % Neutrophils # 2.9 (1.6-8.9) K/mcL Lymphocytes # 1.2 (0.6-4.6) K/mcL Monocytes # 0.5 (0.0-1.3) K/mcL Eosinophils # 0.0 (0.0-0.6) K/mcL Basophils # 0.0 (0.0-0.2) K/mcL Immature Plt Fraction 0.7 L (1.1-6.1) % Sodium (136-145) mEq/L Potassium (3.5-5.1) mEq/L Chloride (98-107) mEq/L Carbon Dioxide (23-29) mEq/L BUN (6-20) mg/dL Creatinine (0.60-1.20) mg/dL Est GFR ( Amer) (> 60) Est GFR (Non-Af Amer) (> 60) BUN/Creatinine Ratio (6-26) Glucose (70-105) mg/dL Calculated Osmolality (280-300) Calcium (8.6-10.3) mg/dL Total Bilirubin (0.3-1.0) mg/dL AST (13-39) Units/L ALT (7-52) Units/L Alkaline Phosphatase (34-104) Units/L Troponin I (< 0.04) ng/mL Serum Total Protein (6.4-8.9) g/dL Albumin (3.5-5.7) g/dL Globulin (2.4-3.5) g/dL Albumin/Globulin Ratio (1.1-2.2) Lipase (11-82) Units/L TSH (0.340-5.600) mcIU/mL Random Cortisol mcg/dl Urine Color Yellow (Yellow) Urine Clarity Clear (Clear) Urine pH 6.5 (5.0-8.0) pH Units Ur Specific [place] 1.016 (1.010-1.025) Urine Protein Negative (Neg-Trace) mg/dL Urine Glucose (UA) Normal (Normal) mg/dL Urine Ketones Negative (Negative) mg/dL Urine Blood Negative (Negative) Urine Nitrite Negative (Negative) Urine Bilirubin Negative (Negative) Urine Urobilinogen Normal (Normal) mg/dL Ur Leukocyte Esterase Negative (Negative) Ur Culture Indicated? NO (NO) Urine Opiates Screen Negative (Zdohwx=400) ng/mL Ur Barbiturates Screen Negative (Tipgzi=346) ng/mL Ur Phencyclidine Scrn Negative (Cutoff=25) ng/mL Ur Amphetamines Screen Negative (Lfvgzj=1215) ng/mL U Benzodiazepines Scrn Positive H (Chhhsr=998) ng/mL Urine Cocaine Screen Negative (Cutoff= 300) ng/mL U Marijuana (THC) Screen Negative (Cutoff = 50) ng/mL 12/05/17 Range/Units 11:07 WBC (4.3-11.1) K/mcL RBC (3.82-4.97) M/mcL Hgb (11.5-15.4) g/dL Hct (35.3-44.9) % MCV (83.0-100.0) fL MCH (28.0-33.3) pg MCHC (31.6-35.5) g/dL RDW (11.5-14.5) % Plt Count (140-400) K/mcL MPV (9.4-12.4) fL Immature Gran % (0-4) % Seg Neutrophils % % Lymphocytes % % Monocytes % % Eosinophils % % Basophils % % Neutrophils # (1.6-8.9) K/mcL Lymphocytes # (0.6-4.6) K/mcL Monocytes # (0.0-1.3) K/mcL Eosinophils # (0.0-0.6) K/mcL Basophils # (0.0-0.2) K/mcL Immature Plt Fraction (1.1-6.1) % Sodium 124 L (136-145) mEq/L Potassium 3.5 (3.5-5.1) mEq/L Chloride 95 L (98-107) mEq/L Carbon Dioxide 22 L (23-29) mEq/L BUN 8 (6-20) mg/dL Creatinine 0.80 (0.60-1.20) mg/dL Est GFR ( Amer) > 60 (> 60) Est GFR (Non-Af Amer) > 60 (> 60) BUN/Creatinine Ratio 10 (6-26) Glucose 115 H (70-105) mg/dL Calculated Osmolality 257 L (280-300) Calcium 9.1 (8.6-10.3) mg/dL Total Bilirubin 0.3 (0.3-1.0) mg/dL AST 15 (13-39) Units/L ALT 16 (7-52) Units/L Alkaline Phosphatase 58 (34-104) Units/L Troponin I < 0.03 (< 0.04) ng/mL Serum Total Protein 6.9 (6.4-8.9) g/dL Albumin 4.1 (3.5-5.7) g/dL Globulin 2.8 (2.4-3.5) g/dL Albumin/Globulin Ratio 1.5 (1.1-2.2) Lipase 28 (11-82) Units/L TSH 0.364 (0.340-5.600) mcIU/mL Random Cortisol 15.7 mcg/dl Urine Color (Yellow) Urine Clarity (Clear) Urine pH (5.0-8.0) pH Units Ur Specific [place] (1.010-1.025) Urine Protein (Neg-Trace) mg/dL Urine Glucose (UA) (Normal) mg/dL Urine Ketones (Negative) mg/dL Urine Blood (Negative) Urine Nitrite (Negative) Urine Bilirubin (Negative) Urine Urobilinogen (Normal) mg/dL Ur Leukocyte Esterase (Negative) Ur Culture Indicated? (NO) Urine Opiates Screen (Uavvgn=770) ng/mL Ur Barbiturates Screen (Bsxmnl=263) ng/mL Ur Phencyclidine Scrn (Cutoff=25) ng/mL Ur Amphetamines Screen (Trnyjk=7361) ng/mL U Benzodiazepines Scrn (Gesckf=654) ng/mL Urine Cocaine Screen (Cutoff= 300) ng/mL U Marijuana (THC) Screen (Cutoff = 50) ng/mL S.B.A.R. - S.B.A.R. Situation: Demographics, MOA Background: Presenting Complaint, Relevant PMH, Meds, & Allergies Assessment: Vital Signs, Course and respsone to treatment, Exam Concerns, Patient/Family Expectation, Pertinant Lab Results, Outstanding Labs Recommendation: Barrier(s) to disposition, Recommendation based on pending studies, treatments, or consults Maria R Report Given to: Dr. Alysha Heck Repor Time: 11:00 Attestation Statement - Attestation Attestation: Patient was seen in coordination with resident physician as well as physician commercial loan assistant. I reviewed the history physical assessment and plan from both providers. I also had personal [id number] time with an evaluated this patient. Agree with the findings. 52-year-old female presents to the emergency department with continuation of symptoms from previous. She was diagnosed with a kerion which was drained and she was started on antibiotics sometime last week. She notes though that she has had continued headaches dizziness nausea and vomiting for that period of time. She says she has some chest burning and pressure but only when she is throwing up and she has a history of reflux. The symptoms of chest discomfort or not there when she is not actively having vomiting. She denies fevers or chills. No diarrhea. And no focal neurologic complaints. Physical exam vital signs are stable. ENT is unremarkable except for a kerion that appears to be healing. Heart regular rhythm and rate. Lungs clear. Abdomen soft nontender. Extremities unremarkable. Neurologically intact with no focal deficits. Skin as noted. Psych no acute abnormalities. ED course we will check a head CT scan as well as some basic labs. EKG shows no acute ischemic changes. We will also treat the patient's nausea. Workup however revealed pretty significant hyponatremia. Seems to be an issue the patient had ongoing but certainly could be causative of her dizziness. Because it was so low wanted to slowly rehydrate her so as not to cause any issues with raising that too rapidly. Along with her other symptoms we opted to admit the patient to the hospitalist service for further evaluation and treatment. I agree with resident physician assessment plan.
[2017-12-05] MEDS ORDERED: Ondansetron 4 MG/2 ML VIAL IVP ONE (11:22)
[2017-12-05] MEDS ORDERED: 0.9 % Sodium Chloride 1,000 ML IVC ONE (11:22)
[2017-12-05 11:28] LABS: Bilirubin,Urine Negative (Negative); Blood,Urine Negative (Negative); Clarity,Urine Clear (Clear); Color,Urine Yellow (Yellow); Glucose,Urine (UA) Normal (Normal); Ketones,Urine Negative (Negative); Leukocyte Esterase,Urine Negative (Negative); Nitrite,Urine Negative (Negative); PH,Urine 6.5 pH Units (5.0-8.0); Protein,Urine Negative (Neg-Trace); Specific Gravity,Urine 1.016 (1.010-1.025); Urobilinogen,Urine Normal (Normal)
--- NOTE | 2017-12-05 11:33 | Emergency Department Note ---
Disposition Clinical Impression: Paresthesia, [place] disease, Hyponatremia Disposition: Still a Patient Condition: Undetermined Referrals: Leonard Sosa DO [Primary Care Provider] - Forms: ED Satisfaction Letter, Work/School Release Time of Disposition: 12:22 General Adult HPI - General Chief complaint: ED General Medical Stated complaint: numbness whole body, sick just like other day Time Seen by Provider: 12/05/17 10:29 Source: patient Limitations: no limitations - History of Present Illness Location: head, chest Pain Scale: 10 Quality: aching Improves with: nothing Worsens with: nothing Associated symptoms: Reports: cough, fever/chills, nausea/vomiting, other ( "numbness and tingling all over") - Related Data Home Medications Medication Instructions Recorded Confirmed BuPROPion SR (12 HR) [Wellbutrin 450 mg PO BID 04/06/15 12/05/17 SR] Budesonide/Formoterol Fumarate 2 puff IH BID 04/06/15 12/05/17 [Symbicort 160-4.5 Mcg Inhaler] Calcium Carbonate/Vitamin D3 1 tab PO DAILY 04/06/15 12/05/17 [Calcium 600+D Softgel] Gabapentin [Neurontin] 300 mg PO TID 04/06/15 12/05/17 Hydrochlorothiazide 25 mg PO DAILY 04/06/15 12/05/17 Levothyroxine Sodium [Synthroid] 25 mcg PO QAM 04/06/15 12/05/17 OxyCODONE/APAP 10/325 [Percocet 1 tab PO Q6H PRN 04/06/15 12/05/17 10/325] Ziprasidone HCl [Geodon] 40 mg PO QAM 04/06/15 12/05/17 Ziprasidone HCl [Geodon] 160 mg PO HS 04/06/15 12/05/17 Zolpidem Tartrate [Ambien] 10 mg PO HS 04/06/15 12/05/17 Meloxicam [Mobic] 15 mg PO DAILY 03/16/17 12/05/17 Omeprazole [PriLOSEC] 40 mg PO DAILY 03/16/17 12/05/17 diazePAM [Valium] 10 mg PO BID 03/16/17 12/05/17 Sennosides [Senna] 8.6 mg PO DAILY PRN 12/05/17 12/05/17 Previous Rx's Medication Instructions Recorded HydrOXYzine 10 mg PO TID #30 tablet 10/01/16 Cyclobenzaprine [Flexeril] 10 mg PO Q8H PRN #10 tablet 01/09/17 Aspirin 81 mg PO QAM #30 03/17/17 Simvastatin [Zocor] 10 mg PO DAILY #30 tablet 03/17/17 Allergies Allergy/AdvReac Type Severity Reaction Status Date / Time acetaminophen [From Midol] Allergy Difficulty Verified 12/05/17 10:22 Breathing Buspirone [From BuSpar] Allergy Unresponsiv Verified 12/05/17 10:22 e ibuprofen Allergy Difficulty Verified 12/05/17 10:22 Breathing pamabrom [From Midol] Allergy Difficulty Verified 12/05/17 10:22 Breathing propoxyphene [From Darvon] AdvReac Nausea Verified 12/05/17 10:22 All systems ED: reviewed and negative except as stated. Review of Systems: As Per HPI Constitutional: Reports: as per HPI, fever, chills. Denies: weakness, weight change Eyes: Denies: eye pain, eye discharge, vision change ENT ED: Denies: ear pain, throat pain, dental pain, hearing loss, epistaxis, congestion, dysphagia Cardiovascular: Reports: as per HPI, chest pain. Denies: palpitations, dyspnea on exertion, edema, syncope Respiratory: Reports: as per HPI, cough. Denies: dyspnea, wheezes, hemoptysis, stridor, sputum production Gastrointestinal: Reports: as per HPI, nausea, vomiting. Denies: abdominal pain , diarrhea, constipation, hematemesis, melena, hematochezia Genitourinary: Denies: dysuria, frequency, hematuria, discharge Musculoskeletal: Denies: back pain, neck pain, arthralgia, myalgia Integumentary: Reports: as per HPI, other ([place] top scalp). Denies: rash, abrasion, lesions Neurological: Reports: numbness (Whole-body), paresthesias (Whole-body). Denies : headache, weakness, confusion, abnormal gait, vertigo Psychiatric: Reports: as per HPI, anxiety. Denies: depression, suicidal thoughts, homicidal thoughts, auditory hallucinations, visual hallucinations Endocrine: Denies: fatigue Hematological/Lymphatic: Denies: easy bleeding, easy bruising Allergic/Immunologic: Denies: facial swelling, urticaria Past Medical History - Past Medical History Medical history: Reports: arthritis, asthma, COPD, hypertension, migraine, thyroid disease Surgical history: Reports: cholecystectomy, hysterectomy, orthopedic, other ( Bilateral carpal tunnel release surgery), other (Tubal ligation, right leg surgery multiple times for unknown reasons) Psychiatric history: Reports: anxiety, depression, panic disorder, schizophrenia , previous psychiatric hospitalization [employer] history: Reports: bilateral tubal ligation - Social History Smoking Status: Former smoker Smokeless Tobacco Status: No Alcohol use: Reports: none Drug use: Reports: none Physical Exam - General Limitations: no limitations General appearance: alert Course Course Narrative: Patient's care transferred to myself and Dr. Loyd is a sign out at 11:20. I discussed the patient's symptoms with her further she states that the chest pain is not something that has actually been going on for the past week she states the chest pain occurs when she has dry heaving from her nausea otherwise there is no chest pain and she is currently symptomatically as far as chest pain at this time. Patient does state that she does have generalized weakness associated with nausea. She states that she is also been constipated over the past week due to her IBS. Discussed the plan with the patient to continue with the current labs as well as were the patient IV fluids for hydration and something for her nausea. States she does not feel dizzy necessarily, she mainly feels generally weak. On physical exam her neurological exam is completely intact her lung sounds are clear, heart sounds regular, her abdomen is soft and nontender and she has no CVA tenderness. - Reevaluation(s) Reevaluation #1: Patient's exam reveals a hyponatremia of 124. Vital Signs Temperature 98.6 F 12/05/17 10:22 Pulse Rate 111 12/05/17 10:22 Respiratory Rate 20 12/05/17 10:22 Blood Pressure 169/92 12/05/17 10:22 O2 Sat by Pulse Oximetry 99 12/05/17 10:22 Temperature 98.6 F 12/05/17 10:22 Pulse Rate 92 12/05/17 14:47 Respiratory Rate 18 12/05/17 14:47 Blood Pressure 132/102 12/05/17 14:47 O2 Sat by Pulse Oximetry 97 12/05/17 14:47 Oxygen Delivery Oxygen Delivery Room Air Medical Decision Making - Medical Records Medical records reviewed: Yes I reviewed the patient's medical records. - Lab Data Lab results reviewed: Yes I reviewed the patient's lab results. Result diagrams: 12/05/17 11:07 12/05/17 11:07 Lab Results 12/05/17 12/05/17 12/05/17 Range/Units 11:05 11:05 11:07 WBC 4.6 (4.3-11.1) K/mcL RBC 4.06 (3.82-4.97) M/mcL Hgb 13.1 (11.5-15.4) g/dL Hct 37.4 (35.3-44.9) % MCV 92.1 (83.0-100.0) fL MCH 32.3 (28.0-33.3) pg MCHC 35.0 (31.6-35.5) g/dL RDW 12.0 (11.5-14.5) % Plt Count 459 H (140-400) K/mcL MPV 8.2 L (9.4-12.4) fL Immature Gran % 0.4 (0-4) % Seg Neutrophils % 61.9 % Lymphocytes % 26.0 % Monocytes % 10.4 % Eosinophils % 0.9 % Basophils % 0.4 % Neutrophils # 2.9 (1.6-8.9) K/mcL Lymphocytes # 1.2 (0.6-4.6) K/mcL Monocytes # 0.5 (0.0-1.3) K/mcL Eosinophils # 0.0 (0.0-0.6) K/mcL Basophils # 0.0 (0.0-0.2) K/mcL Immature Plt Fraction 0.7 L (1.1-6.1) % Sodium (136-145) mEq/L Potassium (3.5-5.1) mEq/L Chloride (98-107) mEq/L Carbon Dioxide (23-29) mEq/L BUN (6-20) mg/dL Creatinine (0.60-1.20) mg/dL Est GFR ( Amer) (> 60) Est GFR (Non-Af Amer) (> 60) BUN/Creatinine Ratio (6-26) Glucose (70-105) mg/dL Calculated Osmolality (280-300) Calcium (8.6-10.3) mg/dL Total Bilirubin (0.3-1.0) mg/dL AST (13-39) Units/L ALT (7-52) Units/L Alkaline Phosphatase (34-104) Units/L Troponin I (< 0.04) ng/mL Serum Total Protein (6.4-8.9) g/dL Albumin (3.5-5.7) g/dL Globulin (2.4-3.5) g/dL Albumin/Globulin Ratio (1.1-2.2) Lipase (11-82) Units/L TSH (0.340-5.600) mcIU/mL Random Cortisol mcg/dl Urine Color Yellow (Yellow) Urine Clarity Clear (Clear) Urine pH 6.5 (5.0-8.0) pH Units Ur Specific [place] 1.016 (1.010-1.025) Urine Protein Negative (Neg-Trace) mg/dL Urine Glucose (UA) Normal (Normal) mg/dL Urine Ketones Negative (Negative) mg/dL Urine Blood Negative (Negative) Urine Nitrite Negative (Negative) Urine Bilirubin Negative (Negative) Urine Urobilinogen Normal (Normal) mg/dL Ur Leukocyte Esterase Negative (Negative) Ur Culture Indicated? NO (NO) Urine Opiates Screen Negative (Qocnyy=870) ng/mL Ur Barbiturates Screen Negative (Njfzra=456) ng/mL Ur Phencyclidine Scrn Negative (Cutoff=25) ng/mL Ur Amphetamines Screen Negative (Gsodul=9553) ng/mL U Benzodiazepines Scrn Positive H (Wzngre=876) ng/mL Urine Cocaine Screen Negative (Cutoff= 300) ng/mL U Marijuana (THC) Screen Negative (Cutoff = 50) ng/mL 12/05/17 Range/Units 11:07 WBC (4.3-11.1) K/mcL RBC (3.82-4.97) M/mcL Hgb (11.5-15.4) g/dL Hct (35.3-44.9) % MCV (83.0-100.0) fL MCH (28.0-33.3) pg MCHC (31.6-35.5) g/dL RDW (11.5-14.5) % Plt Count (140-400) K/mcL MPV (9.4-12.4) fL Immature Gran % (0-4) % Seg Neutrophils % % Lymphocytes % % Monocytes % % Eosinophils % % Basophils % % Neutrophils # (1.6-8.9) K/mcL Lymphocytes # (0.6-4.6) K/mcL Monocytes # (0.0-1.3) K/mcL Eosinophils # (0.0-0.6) K/mcL Basophils # (0.0-0.2) K/mcL Immature Plt Fraction (1.1-6.1) % Sodium 124 L (136-145) mEq/L Potassium 3.5 (3.5-5.1) mEq/L Chloride 95 L (98-107) mEq/L Carbon Dioxide 22 L (23-29) mEq/L BUN 8 (6-20) mg/dL Creatinine 0.80 (0.60-1.20) mg/dL Est GFR ( Amer) > 60 (> 60) Est GFR (Non-Af Amer) > 60 (> 60) BUN/Creatinine Ratio 10 (6-26) Glucose 115 H (70-105) mg/dL Calculated Osmolality 257 L (280-300) Calcium 9.1 (8.6-10.3) mg/dL Total Bilirubin 0.3 (0.3-1.0) mg/dL AST 15 (13-39) Units/L ALT 16 (7-52) Units/L Alkaline Phosphatase 58 (34-104) Units/L Troponin I < 0.03 (< 0.04) ng/mL Serum Total Protein 6.9 (6.4-8.9) g/dL Albumin 4.1 (3.5-5.7) g/dL Globulin 2.8 (2.4-3.5) g/dL Albumin/Globulin Ratio 1.5 (1.1-2.2) Lipase 28 (11-82) Units/L TSH 0.364 (0.340-5.600) mcIU/mL Random Cortisol 15.7 mcg/dl Urine Color (Yellow) Urine Clarity (Clear) Urine pH (5.0-8.0) pH Units Ur Specific [place] (1.010-1.025) Urine Protein (Neg-Trace) mg/dL Urine Glucose (UA) (Normal) mg/dL Urine Ketones (Negative) mg/dL Urine Blood (Negative) Urine Nitrite (Negative) Urine Bilirubin (Negative) Urine Urobilinogen (Normal) mg/dL Ur Leukocyte Esterase (Negative) Ur Culture Indicated? (NO) Urine Opiates Screen (Odjrbi=198) ng/mL Ur Barbiturates Screen (Ssmlan=694) ng/mL Ur Phencyclidine Scrn (Cutoff=25) ng/mL Ur Amphetamines Screen (Mbagsf=7881) ng/mL U Benzodiazepines Scrn (Jeinuy=178) ng/mL Urine Cocaine Screen (Cutoff= 300) ng/mL U Marijuana (THC) Screen (Cutoff = 50) ng/mL - Radiology Data Radiology results reviewed: Yes I reviewed the patient's radiology results. Chest X-Ray 12/05/17 10:49 IMPRESSION: Stable chest with no acute cardiopulmonary process. D/ / Arnie Lerma MD / Arnie Lerma MD Interpreting Provider: Arnie Lerma MD Head CT 12/05/17 10:49 IMPRESSION: 1. No CT evidence for acute intracranial abnormality. 2. Soft tissue hematoma/bruising overlying the right high frontal bone. No underlying calvarial injury. D/ / Refugio Ballesteros / Refugio Ballesteros Interpreting Provider: Refugio Ballesteros X-Ray 12/05/17 11:25 IMPRESSION: Probable constipation. No acute intra-abdominal process. D/ / Arnie Lerma MD / Arnie Lerma MD Interpreting Provider: Arnie Lerma MD - EKG Data EKG #1 EKG attestation: Yes I reviewed and interpreted this EKG. EKG results narrative: EKG done at 11:09 shows sinus rhythm at a rate of 85 bpm. Normal axis. TX is 139, QRS 97, QT is 386 and QTc is 420 and these are within normal limits. No signs of ischemia on this EKG. This is unchanged from the EKG that was done on October 282017. Attestation Statement - Attestation Attestation: Patient was seen in coordination with resident physician as well as physician scheduling assistant. I reviewed the history physical assessment and plan from both providers. I also had personal [id number] time with an evaluated this patient. Agree with the findings. 52-year-old female presents to the emergency department with continuation of symptoms from previous. She was diagnosed with a kerion which was drained and she was started on antibiotics sometime last week. She notes though that she has had continued headaches dizziness nausea and vomiting for that period of time. She says she has some chest burning and pressure but only when she is throwing up and she has a history of reflux. The symptoms of chest discomfort or not there when she is not actively having vomiting. She denies fevers or chills. No diarrhea. And no focal neurologic complaints. Physical exam vital signs are stable. ENT is unremarkable except for a kerion that appears to be healing. Heart regular rhythm and rate. Lungs clear. Abdomen soft nontender. Extremities unremarkable. Neurologically intact with no focal deficits. Skin as noted. Psych no acute abnormalities. ED course we will check a head CT scan as well as some basic labs. EKG shows no acute ischemic changes. We will also treat the patient's nausea. Workup however revealed pretty significant hyponatremia. Seems to be an issue the patient had ongoing but certainly could be causative of her dizziness. Because it was so low wanted to slowly rehydrate her so as not to cause any issues with raising that too rapidly. Along with her other symptoms we opted to admit the patient to the hospitalist service for further evaluation and treatment. I agree with resident physician assessment plan.
[2017-12-05 11:34] LABS: Basophils % 0.4 %; Eosinophils % 0.9 %; Hematocrit 37.4 % (35.3-44.9); Hemoglobin 13.1 g/dL (11.5-15.4); Immature Granulocytes % 0.4 % (0-4); Immature Platelets 0.7 % (1.1-6.1); Lymphocytes # 1.2 K/mcL (0.6-4.6); Mean Corpuscular Hemoglobin 32.3 pg (28.0-33.3); Mean Corpuscular Volume 92.1 fL (83.0-100.0); Mean Platelet Volume 8.2 fL (9.4-12.4); Monocytes # 0.5 K/mcL (0.0-1.3); Monocytes % 10.4 %; Neutrophils # 2.9 K/mcL (1.6-8.9); Platelet Count 459 K/mcL (140-400); Red Blood Count 4.06 M/mcL (3.82-4.97); Segmented Neutrophils % 61.9 %
[2017-12-05 11:37] LABS: Amphetamine Screen,Urine Negative ng/mL (Cutoff=1000); Barbiturate Screen,Urine Negative ng/mL (Cutoff=200); Benzodiazepines Screen,Urine Positive ng/mL (Cutoff=200); Cannabinoid Screen,Urine Negative ng/mL (Cutoff = 50); Cocaine Screen,Urine Negative ng/mL (Cutoff= 300); Opiate Screen,Urine Negative ng/mL (Cutoff=300); Phencyclidine Screen,Urine Negative ng/mL (Cutoff=25)
[2017-12-05 11:57] LABS: Alanine Aminotransferase 16 Units/L (7-52); Albumin 4.1 g/dL (3.5-5.7); Albumin/Globulin Ratio 1.5 (1.1-2.2); Alkaline Phosphatase 58 Units/L (34-104); Aspartate Amino Transferase 15 Units/L (13-39); BUN/Creatinine Ratio 10 (6-26); Bilirubin,Total 0.3 mg/dL (0.3-1.0); Blood Urea Nitrogen 8 mg/dL (6-20); Calcium 9.1 mg/dL (8.6-10.3); Carbon Dioxide 22 mEq/L (23-29); Chloride 95 mEq/L (98-107); Globulin 2.8 g/dL (2.4-3.5); Glucose 115 mg/dL (70-105); Lipase 28 Units/L (11-82); Osmolality,Calculated 257 (280-300); Potassium 3.5 mEq/L (3.5-5.1); Sodium 124 mEq/L (136-145); Total Protein 6.9 g/dL (6.4-8.9); eGFR For African Americans > 60 (> 60); eGFR For Non-African Americans > 60 (> 60)
[2017-12-05 11:58] LABS: Troponin I < 0.03 ng/mL (< 0.04)
--- NOTE | 2017-12-05 13:26 | Internal Med History&Physical ---
Date of Encounter: 12/05/17 Time of Encounter: 13:00 Internal Medicine - H&P: HPI Chief complaint: Dizzy and weak and chest pain Admitted From: Emergency Dept Plans for Post Hospital Care: Home History of present illness: The patient is a 52 year old woaman who presented in the ER this morning c/o generalized weakness, dizziness, N/V and nonspecific chest pain. Her chest pain had resolved and she normal troponins and and ECG w/o ischemic changes. Additionally, she was found to hyponatremic. She has a half-way History of hyponatremia and frequently presents with sodium levels between 124-128. She takes multiple antipsychotic/antidepressant medications well known to cause hyponatremia. She has a history of schizophrenia, anxiety, depression, hypothyroidism (also known to be associated with hyponatremia), COPD, HTN, and recurrent hyponatremia. Today her Hyponatremia is 124 w/o any focal neurological deficits. She is euvolemic and drinks 8 12ox bottles of water, 6 12 oz cans of Pepsi and 3 8 oz cups of coffee daily. She also had a lesion on her scaplp incised and drained several days ago and was sent home on Bactrim and griseofulvin. Past Med Surg Social Fam HX - Past Medical History Medical history: arthritis, asthma, COPD, hypertension, migraine, thyroid disease Psychiatric history: anxiety, depression, panic disorder, schizophrenia, previous psychiatric hospitalization - Past Surgical History Surgical History: cholecystectomy, hysterectomy, orthopedic, other (Bilateral carpal tunnel release surgery), other (Tubal ligation, right leg surgery multiple times for unknown reasons) - Social History Smoking Status: Former smoker Smokeless Tobacco Status: No Alcohol use: none Drug use: none - Family History Father Hx Family Cardiac Disorders: Yes (CAD) Hx Family Endocrine Disorder: Yes (Diabetes) Mother Hx Family Cardiac Disorders: Yes (CAD) Hx Family Endocrine Disorder: Yes (Diabetes) Internal Medicine - H&P: Meds Aclidinium [place] [Tudorza Pressair] 1 puff IH BID 04/06/15 [History] BuPROPion SR (12 HR) [Wellbutrin SR] 150 mg PO BID 04/06/15 [History] Budesonide/Formoterol Fumarate [Symbicort 160-4.5 Mcg Inhaler] 2 puff IH BID 03/14 [History] Calcium Carbonate/Vitamin D3 [Calcium 600+D Softgel] 1 tab PO DAILY 04/06/15 [ History] Gabapentin [Neurontin] 300 mg PO TID 04/06/15 [History] Hydrochlorothiazide 25 mg PO DAILY 04/06/15 [History] Lactose-Reduced Food [Ensure Complete] 237 ml PO QAM 04/06/15 [History] Levothyroxine Sodium [Synthroid] 25 mcg PO QAM 04/06/15 [History] OxyCODONE/APAP 10/325 [Percocet 10/325] 1 tab PO QID 04/06/15 [History] Ziprasidone HCl [Geodon] 40 mg PO QAM 04/06/15 [History] Ziprasidone HCl [Geodon] 160 mg PO HS 04/06/15 [History] Zolpidem Tartrate [Ambien] 10 mg PO HS 04/06/15 [History] Albuterol Sulfate [Albuterol Inhaler] 2 puff IH Q4HR 2 Days hfa.[id number].[email or web address] [Rx] HydrOXYzine 10 mg PO TID #30 tablet 10/01/16 [Rx] Cyclobenzaprine [Flexeril] 10 mg PO Q8H PRN #10 tablet 01/09/17 [Rx] Lidocaine Patch [Lidoderm 5% patch] 1 patch TP DAILY 03/16/17 [History] Meloxicam [Mobic] 15 mg PO DAILY 03/16/17 [History] Omeprazole [PriLOSEC] 40 mg PO DAILY 03/16/17 [History] diazePAM [Valium] 10 mg PO BID 03/16/17 [History] Aspirin 81 mg PO QAM #30 03/17/17 [Rx] Simvastatin [Zocor] 10 mg PO DAILY #30 tablet 03/17/17 [Rx] Lidocaine Patch [Lidoderm 5% patch] 1 each TP DAILY PRN #3 adh..patch 05/07/17 [ Rx] Cephalexin [Keflex] 500 mg PO BID 7 Days capsule 05/22/17 [Rx] Sulfamethoxazole/Trimeth DS [Bactrim DS] 1 each PO BID #14 tablet 11/29/17 [Rx] Griseofulvin Ultramicrosize [Kayleen-Peg] 500 mg PO DAILY 28 Days #56 tablet [Rx] Sulfacetamide Sodium [Ovace Plus] 100 gm TP QWEEK #1 foam 12/03/17 [Rx] 3 Allergy/AdvReac Type Severity Reaction Status Date / Time acetaminophen [From Midol] Allergy Difficulty Verified 12/05/17 10:22 Breathing Buspirone [From BuSpar] Allergy Unresponsiv Verified 12/05/17 10:22 e ibuprofen Allergy Difficulty Verified 12/05/17 10:22 Breathing pamabrom [From Midol] Allergy Difficulty Verified 12/05/17 10:22 Breathing propoxyphene [From Darvon] AdvReac Nausea Verified 12/05/17 10:22 All Systems PM: A 10-system review of systems was performed and is negative for pertinent findings except as documented above in the HPI. - Constitutional Constitutional: weakness, no anorexia, no chills, no excessive sweating, no fever(s), no falls - EENT Eyes: no blurry vision, no decreased night vision, no diplopia Nose, mouth and throat: no dental pain, no dysphagia, no mouth pain - Gastrointestinal Gastrointestinal: constipation, no abdominal pain, no hematemesis, no hematochezia, no loose stools - Neurological Neurological ROS: confusion, headache(s), no abnormal gait - Constitutional Vitals: Temp Pulse Resp BP Pulse Ox 98.6 F 90 18 147/97 99 12/05/17 10:22 12/05/17 12:43 12/05/17 12:43 12/05/17 12:43 12/05/17 12:43 General appearance: Present: cooperative, A&O X 3, pleasant, no acute distress, underweight - Head Head exam: Present: atraumatic, normocephalic - Eye Eye exam: Present: EOMI, PERRL, conjuntiva pink, sclera anicteric Pupils: Present: PERRL - Neck Neck exam general surgery: Present: supple, trachea midline. Absent: lymphadenopathy, tenderness, nuchal rigidity, thyromegaly - Respiratory Respiratory exam: Present: CTAB. Absent: accessory muscle use, rales, rhonchi, stridor, wheezes - Cardiovascular Cardiovascular exam: Present: RRR, +S1, +S2. Absent: diastolic murmur, gallop, rubs, systolic murmur - GI/Abdominal GI/Abdominal exam: Present: normal bowel sounds, soft, no peritoneal signs. Absent: distended, tenderness - Extremities Exam Extremities exam: Present: warm, radial pulses palpable and symmetrical. Absent : calf tenderness, cyanotic, pedal edema - Neurological Exam Neurological exam: Present: CN II-XII intact, oriented X3, no focal deficits. Absent: pronater drift, facial droop, speech deficit - Skin Skin exam: Present: dry, intact Internal Med - H&P Results - Labs CBC & Chem 7: 12/05/17 11:07 12/05/17 11:07 Labs: Short CBC 12/05/17 Range/Units 11:07 WBC 4.6 (4.3-11.1) K/mcL Hgb 13.1 (11.5-15.4) g/dL Hct 37.4 (35.3-44.9) % Plt Count 459 H (140-400) K/mcL Neutrophils # 2.9 (1.6-8.9) K/mcL BMP 12/05/17 11:07 Sodium 124 L Potassium 3.5 Chloride 95 L Carbon Dioxide 22 L BUN 8 Creatinine 0.80 Glucose 115 H Calcium 9.1 Cardiac Enzymes 12/05/17 Range/Units 11:07 Troponin I < 0.03 (< 0.04) ng/mL Liver Function 12/05/17 Range/Units 11:07 Total Bilirubin 0.3 (0.3-1.0) mg/dL AST 15 (13-39) Units/L ALT 16 (7-52) Units/L Alkaline Phosphatase 58 (34-104) Units/L Albumin 4.1 (3.5-5.7) g/dL Urine 12/05/17 Range/Units 11:05 Urine Color Yellow (Yellow) Urine Clarity Clear (Clear) Urine pH 6.5 (5.0-8.0) pH Units Ur Specific [place] 1.016 (1.010-1.025) Urine Protein Negative (Neg-Trace) mg/dL Urine Glucose (UA) Normal (Normal) mg/dL - Impressions ITS Impressions Chest X-Ray 12/05/17 10:49 IMPRESSION: Stable chest with no acute cardiopulmonary process. D/ / Arnie Lerma MD / Arnie Lerma MD Interpreting Provider: Arnie Lerma MD Head CT 12/05/17 10:49 IMPRESSION: 1. No CT evidence for acute intracranial abnormality. 2. Soft tissue hematoma/bruising overlying the right high frontal bone. No underlying calvarial injury. D/ / Refugio Ballesteros / Refugio Ballesteros Interpreting Provider: Refugio Ballesteros X-Ray 12/05/17 11:25 IMPRESSION: Probable constipation. No acute intra-abdominal process. D/ / Arnie Lerma MD / Arnie Lerma MD Interpreting Provider: Arnie Lerma MD - Assessment and plan (1) Hyponatremia Current Visit: Yes Status: Acute Assessment and plan: Symptomatic euvolemic hyponatremia Likely secondary to excessive water intake and Psych medications Chronic hyponatremia Serial bmp Check TSH and random cortisol Check Dinh and Uosm Given NS in ER Continue at 100 ml/hr (2) COPD (chronic obstructive pulmonary disease) Current Visit: No Status: Chronic Assessment and plan: Continue home bronchodilators No signs of exacerbation Qualifiers: COPD type: unspecified COPD Qualified Code(s): J44.9 - Chronic obstructive pulmonary disease, unspecified (3) Chest pain Current Visit: Yes Status: Acute Assessment and plan: Resolved now Troponin wnl ECG NSR without ischemic changes Telemetry bed OP stress test per PCP Qualifiers: Chest pain type: unspecified Qualified Code(s): R07.9 - Chest pain, unspecified (4) Hypothyroidism Current Visit: No Status: Chronic Assessment and plan: Check TSH Continue home dose of synthroid for now Qualifiers: Hypothyroidism type: unspecified Qualified Code(s): E03.9 - Hypothyroidism , unspecified (5) Schizoaffective disorder Current Visit: No Status: Chronic Assessment and plan: Continue home medication Many contribute to hyponatremia Qualifiers: Schizoaffective disorder type: bipolar Qualified Code(s): F25.0 - Schizoaffective disorder, bipolar type - Time Spent With Patient Total time spent is greater than 50% in coordination of care (as documented) at patient's floor/unit and/or counseling patient: Greater than 35 minutes
[2017-12-05 13:50] LABS: Thyroid Stimulating Hormone 0.364 mcIU/mL (0.340-5.600)
[2017-12-05] MEDS ORDERED: *HR* Promethazine 25 MG/ML VIAL IVP ONE (14:38)
[2017-12-05] MEDS: 0.9 % Sodium Chloride 1,000 ML IVC SCH (14:46)
[2017-12-05] MEDS ORDERED: *HR* OxyCODONE/APAP 10/325 TABLET PO ONE (15:20)
[2017-12-05] MEDS ORDERED: Sennosides 8.6 MG TABLET PO PRN (21:27)
[2017-12-05] MEDS: *HR* OxyCODONE/APAP 10/325 TABLET PO PRN (22:25)
[2017-12-06] MEDS: 0.9 % Sodium Chloride 1,000 ML IVC SCH (04:55)
[2017-12-06] MEDS: *HR* OxyCODONE/APAP 10/325 TABLET PO PRN ×2 (05:40→12:13)
[2017-12-06] MEDS ORDERED: Levothyroxine 25 MCG TABLET PO SCH (06:30)
[2017-12-06] MEDS ORDERED: Ziprasidone 20 MG CAPSULE PO SCH (09:00)
[2017-12-06] MEDS ORDERED: diazePAM 5 MG TABLET PO SCH (09:00)
[2017-12-06] MEDS ORDERED: BuPROPion XL (24 HR) 150 MG TABLET PO SCH (09:00)
[2017-12-06] MEDS ORDERED: Aspirin 81 MG TAB.CHEW PO SCH (09:00)
[2017-12-06] MEDS ORDERED: Gabapentin 300 MG CAPSULE PO SCH (09:00)
[2017-12-06] MEDS ORDERED: hydroCHLOROthiazide 25 MG TABLET PO SCH (09:00)
[2017-12-06 09:37] LABS: Basophils % 0.7 %; Eosinophils % 0.5 %; Hematocrit 36.3 % (35.3-44.9); Hemoglobin 12.3 g/dL (11.5-15.4); Immature Granulocytes % 0.5 % (0-4); Lymphocytes # 1.2 K/mcL (0.6-4.6); Lymphocytes % 28.4 %; Mean Corpuscular HGB Conc 33.9 g/dL (31.6-35.5); Mean Corpuscular Hemoglobin 31.9 pg (28.0-33.3); Mean Corpuscular Volume 94.3 fL (83.0-100.0); Mean Platelet Volume 8.3 fL (9.4-12.4); Monocytes # 0.4 K/mcL (0.0-1.3); Monocytes % 8.7 %; Neutrophils # 2.7 K/mcL (1.6-8.9); Platelet Count 338 K/mcL (140-400); Red Blood Count 3.85 M/mcL (3.82-4.97); Red Cell Distribution Width 12.5 % (11.5-14.5); Segmented Neutrophils % 61.2 %
[2017-12-06 09:42] LABS: BUN/Creatinine Ratio 9 (6-26); Blood Urea Nitrogen 6 mg/dL (6-20); Calcium 8.1 mg/dL (8.6-10.3); Carbon Dioxide 23 mEq/L (23-29); Chloride 109 mEq/L (98-107); Glucose 176 mg/dL (70-105); Magnesium 1.9 mg/dL (1.6-2.6); Osmolality,Calculated 276 (280-300); Phosphorous 1.8 mg/dL (2.7-4.5); Potassium 3.9 mEq/L (3.5-5.1); Sodium 132 mEq/L (136-145); eGFR For African Americans > 60 (> 60); eGFR For Non-African Americans > 60 (> 60)
[2017-12-06] MEDS ORDERED: Budesonide/Formoterol 160/4.5 MDI IH SCH (10:00)
[2017-12-06 10:59] VITALS: BP 112/74
--- NOTE | 2017-12-06 12:07 | Discharge Summary ---
- NOTES TO OUTPATIENT PROVIDER Notes to Outpatient Provider: Please closely monitor patient's sodium levels. Pt educated about her fluid intake contributing to her hyponatremia Date of Encounter: 12/06/17 Time of Encounter: 12:05 - Discharge Diagnosis (1) Chest pain Priority: Secondary Status: Resolved Qualifiers: Chest pain type: unspecified Qualified Code(s): R07.9 - Chest pain, unspecified (2) Hyponatremia Priority: Primary Status: Acute (3) COPD (chronic obstructive pulmonary disease) Priority: Secondary Status: Chronic Qualifiers: COPD type: unspecified COPD Qualified Code(s): J44.9 - Chronic obstructive pulmonary disease, unspecified (4) Schizoaffective disorder Priority: Secondary Status: Chronic Qualifiers: Schizoaffective disorder type: bipolar Qualified Code(s): F25.0 - Schizoaffective disorder, bipolar type (5) Hypothyroidism Priority: Secondary Status: Chronic Qualifiers: Hypothyroidism type: unspecified Qualified Code(s): E03.9 - Hypothyroidism , unspecified Hospital course: Ms. Brunner is a 52 year old female with PMH Of HTN, COPD, thyroid disease, psych disorder, chronic hyponatremia who was admitted for symptomatic hyponatremia. Pt was noted to have euvolemic hyponatremia. She was started on IV fluids and closely monitor. Her hyponatremia improved with complete resolution of her presenting symptoms. She is currently resting comfortably in bed and wants to go home. Denies any headache, dizziness, lightheadedness, chest pain, shortness of breath, abd pain, n/v, fever, or chills. Pt is advised to decrease her fluid intake and hold her HCTZ until her follow up with PCP. Pt demonstrates understanding of her diagnosis and agrees with the discharge care and plan. Discharge discussed with: patient, nurse - Time Spent with Patient Total time spent providing and/or coordinating discharge services: Less than 30 minutes - Discharge Medications Home Medications: Budesonide/Formoterol Fumarate [Symbicort 160-4.5 Mcg Inhaler] 2 puff IH BID 03/14 [History] Calcium Carbonate/Vitamin D3 [Calcium 600+D Softgel] 1 tab PO DAILY 04/06/15 [ History] Gabapentin [Neurontin] 300 mg PO TID 04/06/15 [History] Hydrochlorothiazide 25 mg PO DAILY 04/06/15 [History] Levothyroxine Sodium [Synthroid] 25 mcg PO QAM 04/06/15 [History] OxyCODONE/APAP 10/325 [Percocet 10/325] 1 tab PO Q6H PRN 04/06/15 [History] Ziprasidone HCl [Geodon] 40 mg PO QAM 04/06/15 [History] Ziprasidone HCl [Geodon] 160 mg PO HS 04/06/15 [History] Zolpidem Tartrate [Ambien] 10 mg PO HS 04/06/15 [History] HydrOXYzine 10 mg PO TID #30 tablet 10/01/16 [Rx] Cyclobenzaprine [Flexeril] 10 mg PO Q8H PRN #10 tablet 01/09/17 [Rx] Meloxicam [Mobic] 15 mg PO DAILY 03/16/17 [History] Omeprazole [PriLOSEC] 40 mg PO DAILY 03/16/17 [History] diazePAM [Valium] 10 mg PO BID 03/16/17 [History] Aspirin 81 mg PO QAM #30 03/17/17 [Rx] Simvastatin [Zocor] 10 mg PO DAILY #30 tablet 03/17/17 [Rx] BuPROPion XL (24 HR) [Wellbutrin Xl] 450 mg PO DAILY 12/05/17 [History] Sennosides [Senna] 8.6 mg PO DAILY PRN 12/05/17 [History] Allergies/Adverse Reactions: 3 Allergy/AdvReac Type Severity Reaction Status Date / Time acetaminophen [From Midol] Allergy Difficulty Verified 12/05/17 10:22 Breathing Buspirone [From BuSpar] Allergy Unresponsiv Verified 12/05/17 10:22 e ibuprofen Allergy Difficulty Verified 12/05/17 10:22 Breathing pamabrom [From Midol] Allergy Difficulty Verified 12/05/17 10:22 Breathing propoxyphene [From Darvon] AdvReac Nausea Verified 12/05/17 10:22 Date of admission: 12/05/17 15:34 Primary care physician: Leonard Sosa DO Discharging clinician: Michelle Coffman Anticipated date of discharge: 12/06/17 - Constitutional Vitals: Temp Pulse Resp BP Pulse Ox 98.7 F 83 16 112/74 96 12/06/17 10:56 12/06/17 10:56 12/06/17 10:56 12/06/17 10:56 12/06/17 10:56 General appearance: Present: cooperative, A&O X 3, pleasant, no acute distress, underweight - Head Head exam: Present: atraumatic, normocephalic - Eye Eye exam: Present: conjuntiva pink, sclera anicteric - Respiratory Respiratory exam: Present: CTAB. Absent: accessory muscle use, rales, rhonchi, wheezes - Cardiovascular Cardiovascular exam: Present: RRR, +S1, +S2. Absent: diastolic murmur, gallop, rubs, systolic murmur - GI/Abdominal GI/Abdominal exam: Present: normal bowel sounds, soft, no peritoneal signs. Absent: distended, tenderness - Extremities Exam Extremities exam: Present: warm, radial pulses palpable and symmetrical. Absent : calf tenderness, pedal edema, tenderness - Neurological Exam Neurological exam: Present: oriented X3 - Patient Status Disposition: Home, Self-Care Condition: Good Functional capacity at discharge: independent ambulation Overall status at discharge: patient is back to baseline - Ambulatory Orders Ambulatory Orders: Basic Metabolic Panel [CHEM] Time Frame: 5 Days, Facility: [facility], Location: Lab - Discharge Instructions Follow Up With: Leonard Sosa DO [Primary Care Provider] - Additional Instructions: Please follow up with your primary care physician within five days after your discharge from the hospital. Please hold your home dose of Hydrochlorothiazide until your follow up with your primary care physician. Please obtain the prescribed lab work prior to your follow up with your primary care physician. Please closely monitor your blood pressure at home. If you are noted to have systolic blood pressure greater than 150, you may resume your hydrochlorothiazide dose. Resume all other home medications as prescribed by your primary care physician. - Diet and Activity Activity: increase activity as tolerated Diet: low fat, low cholesterol, low salt diet
[2017-12-06] MEDS ORDERED: Ziprasidone 80 MG CAPSULE PO SCH (21:00)
--- NOTE | 2017-12-09 00:42 | Electrocardiograph Report ---
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
== END 2017-12-06 14:35 | disposition home or self-care (01) ==
LOC: 2ANU 10:21 → EMEROO 10:21 → 2ANU 15:56
PROVIDERS: ADMIT Internal Medicine; ATTEND Internal Medicine

== ENCOUNTER 2018-08-05 14:36 | Observation (INO) ==
[2018-08-05 15:03] LABS: Bilirubin,Urine Negative (Negative); Blood,Urine Negative (Negative); Clarity,Urine Clear (Clear); Color,Urine Yellow (Yellow); Glucose,Urine (UA) Normal (Normal); Ketones,Urine Negative (Negative); Leukocyte Esterase,Urine Negative (Negative); Nitrite,Urine Negative (Negative); PH,Urine 7.5 pH Units (5.0-8.0); Protein,Urine Negative (Neg-Trace); Specific Gravity,Urine < 1.005 (1.010-1.025); Urobilinogen,Urine Normal (Normal)
--- NOTE | 2018-08-05 15:08 | Emergency Department Note ---
Disposition Clinical Impression: Suicidal ideation Depression Qualifiers: Depression Type: unspecified Qualified Code(s): F32.9 - Major depressive disorder, single episode, unspecified Disposition: Admitted As Inpatient Condition: Good Time of Disposition: 15:54 Psych HPI - General Chief Complaint: ED Psychiatric Symptoms Stated Complaint: 1A Time Seen by Provider: 08/05/18 14:53 Source: patient Mode of arrival: ambulatory Limitations: no limitations Nursing Notes Reviewed: Yes Vital Signs Reviewed: Yes - History of Present Illness Pt complaint: suicidal ideation, feels depressed Onset (ago): Just [employer] Duration: constant History of similar episodes: Yes Improves with: none Worsens with: other Context: significant life stressor, other Alleged intoxication: No Associated Psychiatric Symptoms: depression, suicidal ideation Associated symptoms: Reports: denies other symptoms Traumatic symptoms: denies traumatic injury Treatments prior to arrival: none Self harm or harm to others: admits thoughts of self harm, denies having a plan - Related Data Home Medications Medication Instructions Recorded Confirmed Calcium Carbonate/Vitamin D3 2 tab PO DAILY 04/06/15 04/24/18 [Calcium 600+D Softgel] Ziprasidone HCl [Geodon] 40 mg PO QAM 04/06/15 04/24/18 Meloxicam [Mobic] 15 mg PO DAILY 03/16/17 04/24/18 Omeprazole [PriLOSEC] 40 mg PO DAILY 03/16/17 04/24/18 Gabapentin [Neurontin] 800 mg PO TID 03/25/18 04/24/18 Levothyroxine [Synthroid] 25 mcg PO 0630 03/25/18 04/24/18 Multivitamin [One Daily Essential] 1 tab PO DAILY 03/25/18 04/24/18 OxyCODONE/APAP 10/325 [Percocet 1 tab PO QID PRN 03/25/18 04/24/18 10/325 MG] Simvastatin [Zocor] 10 mg PO HS 03/25/18 04/24/18 Ziprasidone [Geodon] 160 mg PO HS 03/25/18 04/24/18 BuPROPion SR (12 HR) [Wellbutrin 150 mg PO BID 04/24/18 04/24/18 SR] Previous Rx's Medication Instructions Recorded HydrOXYzine 10 mg PO TID #30 tablet 10/01/16 Cyclobenzaprine [Flexeril] 10 mg PO Q8H PRN #10 tablet 01/09/17 Aspirin 81 mg PO QAM #30 03/17/17 Allergies Allergy/AdvReac Type Severity Reaction Status Date / Time acetaminophen [From Midol] Allergy Difficulty Verified 07/22/18 13:02 Breathing Buspirone [From BuSpar] Allergy Unresponsiv Verified 07/22/18 13:02 e ibuprofen Allergy Difficulty Verified 07/22/18 13:02 Breathing pamabrom [From Midol] Allergy Difficulty Verified 07/22/18 13:02 Breathing tramadol [From Ultram] Allergy Difficulty Verified 07/22/18 13:02 Breathing propoxyphene [From Darvon] AdvReac Nausea Verified 07/22/18 13:02 All systems ED: reviewed and negative except as stated. Review of Systems: As Per HPI Constitutional: Denies: fever, chills, weakness ENT ED: Denies: ear pain, throat pain, congestion Cardiovascular: Denies: chest pain, palpitations, dyspnea on exertion Respiratory: Denies: cough, dyspnea, wheezes Gastrointestinal: Denies: abdominal pain, nausea, vomiting, diarrhea Genitourinary: Denies: urgency, dysuria Musculoskeletal: Denies: back pain Integumentary: Denies: rash Neurological: Denies: headache Past Medical History - Past Medical History Attestation: Yes The following information was validated with the patient. Source: patient Medical history: Reports: arthritis, asthma, COPD, GERD, hyperlipidemia, hypertension, migraine, thyroid disease Surgical history: Reports: cholecystectomy, hysterectomy, orthopedic, other, other Psychiatric history: Reports: anxiety, depression, panic disorder, schizophrenia, previous psychiatric hospitalization [employer] history: Reports: bilateral tubal ligation - Social History Smoking Status: Former smoker Smokeless Tobacco Status: No Alcohol use: Reports: none Drug use: Reports: none Physical Exam - General Limitations: no limitations General appearance: alert, in no apparent distress - Head Head exam: atraumatic, normocephalic, normal inspection - Eye Eye exam: Present: normal appearance, PERRL, EOMI - Neck Neck exam: Present: normal inspection, full ROM, trachea midline - Chest Chest inspection: Present: normal inspection, symmetric chest wall rise - Respiratory Respiratory exam: Present: normal lung sounds bilaterally - Cardiovascular Cardiovascular exam: Present: regular rate, normal rhythm, normal heart sounds - Abdominal Exam Abdominal exam: Present: soft, Non-Tender. Absent: tenderness, distention, guarding, rebound, rigidity - Extremities Exam Extremities exam: Present: normal inspection, full ROM. Absent: tenderness, pedal edema - Back Exam Back exam: Present: normal inspection, full ROM. Absent: tenderness - Neurological Exam Neurological exam: Present: alert, oriented X3, CN II-XII intact, normal gait - Psychiatric Psychiatric exam: Present: depressed, suicidal ideation. Absent: agitated, anxious, flat affect, homicidal ideation - Skin Skin exam: Present: warm, dry, intact, normal color Course Course Narrative: Patient seen and evaluated at the time of arrival. Patient presents here today at the request of outside psychiatric facility. Tonight he had a pink slip applied as well as consultation with the inpatient psychiatric unit. There are point except the patient to the psychiatric unit once the medical clearance evaluation is completed. Vital signs in presentation are stable. Patient is alert she is oriented she speaks in full sentences. She denies any chest pain, shortness of breath, nausea vomiting or diarrhea. Denies any headache or vision change. She has had decreased dosages of her home psychiatric medication as she feels that this is most likely the source to her symptoms here today. She denies any specific suicidal ideation or plan. She is complaining of possible harm herself and feeling like she does not need to be here on earth. She also has a long-standing history of severe depression. Lungs are clear, heart is regular. Abdomen is soft nontender nondistended no guarding no rigidity or peritoneal symptoms. Patient will have medical clearance completed this time. Otherwise she does not have any acute psychiatric or medical issues noted on initial triage evaluation. Mild involving the patient's care is medical clearance and admission for the psychiatric evaluation. - Reevaluation(s) Reevaluation #1: Medical clearance is completed. Patient has positive benzos in her system. No other acute findings at this time. Patient will be admitted to psychiatric unit for continuation of care Time: 15:52 Vital Signs Temperature 97.5 F L 08/05/18 14:41 Pulse Rate 81 08/05/18 14:41 Respiratory Rate 18 08/05/18 14:41 Blood Pressure 156/89 08/05/18 14:41 O2 Sat by Pulse Oximetry 100 08/05/18 14:41 Temperature 97.5 F L 08/05/18 14:41 Pulse Rate 81 08/05/18 14:41 Respiratory Rate 18 08/05/18 14:41 Blood Pressure 156/89 08/05/18 14:41 O2 Sat by Pulse Oximetry 100 08/05/18 14:41 Oxygen Delivery Oxygen Delivery Room Air Psych - MDM Narrative Medical decision making narrative: Medical clearance, suicidal ideation, depression - Medical Records Medical records reviewed: Yes I reviewed the patient's medical records. - Lab Data Lab results reviewed: Yes I reviewed the patient's lab results. Lab Results 08/05/18 Range/Units 14:55 Ur Drug Screen Interp See Below Psychiatric Medical Clearance - Medical Clearance Checklist Does the patient have a NEW psychiatric condition?: No Any abnormalities indicating possible medical illness?: No Any history of medical issues?: No Medical History: No Social History Section defined Any abnormal vital signs prior to transfer?: No Current Vitals: Last Vital Signs Temp 97.5 F L 08/05/18 14:41 Pulse 81 08/05/18 14:41 Resp 18 08/05/18 14:41 BP 156/89 08/05/18 14:41 Pulse Ox 100 08/05/18 14:41 Is the patient intoxicated or cognitively impaired?: No Any abnormalities on the physical exam?: No Any abnormal labs?: No Does the patient require durable medical equiptment?: No Is the patient ambulatory?: Yes Is the patient a fall risk?: No Has the patient been medically cleared?: Yes Any acute medical condition require Tx prior to transfer?: No Statement of Medical Clearance: I have evaluated the patient, reviewed diagnostic information, and certify that the patient's medical condition is sufficiently stable that transfer to the psychiatric unit does not pose a significant risk of deterioration.
[2018-08-05 15:17] LABS: Basophils % 0.4 %; Eosinophils % 0.9 %; Hematocrit 42.7 % (35.3-44.9); Hemoglobin 14.6 g/dL (11.5-15.4); Immature Granulocytes % 0.2 % (0-4); Lymphocytes # 1.3 K/mcL (0.6-4.6); Mean Corpuscular HGB Conc 34.2 g/dL (31.6-35.5); Mean Corpuscular Hemoglobin 31.7 pg (28.0-33.3); Mean Corpuscular Volume 92.6 fL (83.0-100.0); Mean Platelet Volume 8.6 fL (9.4-12.4); Monocytes # 0.4 K/mcL (0.0-1.3); Monocytes % 7.4 %; Platelet Count 304 K/mcL (140-400); Red Blood Count 4.61 M/mcL (3.82-4.97); Red Cell Distribution Width 11.4 % (11.5-14.5); Segmented Neutrophils % 64.1 %
[2018-08-05 15:26] LABS: Amphetamine Screen,Urine Negative ng/mL (Cutoff=1000); Barbiturate Screen,Urine Negative ng/mL (Cutoff=200); Benzodiazepines Screen,Urine Positive ng/mL (Cutoff=200); Cannabinoid Screen,Urine Negative ng/mL (Cutoff = 50); Cocaine Screen,Urine Negative ng/mL (Cutoff= 300); Opiate Screen,Urine Negative ng/mL (Cutoff=300); Phencyclidine Screen,Urine Negative ng/mL (Cutoff=25)
[2018-08-05 15:31] LABS: Acetaminophen < 10 mcg/mL (10-20); BUN/Creatinine Ratio 8 (6-26); Blood Urea Nitrogen 6 mg/dL (6-20); Calcium 9.8 mg/dL (8.6-10.3); Carbon Dioxide 29 mEq/L (23-29); Chloride 101 mEq/L (98-107); Ethanol < 10 mg/dL (Less than 10); Glucose 120 mg/dL (70-105); Osmolality,Calculated 283 (280-300); Potassium 3.8 mEq/L (3.5-5.1); Salicylate < 2.5 mg/dL (15.0-30.0); Sodium 137 mEq/L (136-145); eGFR For Non-African Americans > 60 (> 60)
[2018-08-05] MEDS ORDERED: Mag Hydrox/Al Hydrox/Simeth 30 ML UDC PO PRN (16:49)
[2018-08-05] MEDS ORDERED: Haloperidol Lactate 5 MG/ML VIAL IM PRN (16:49)
[2018-08-05] MEDS ORDERED: *HR* LORazepam 1 MG TABLET PO PRN (16:49)
[2018-08-05] MEDS ORDERED: MOM Conc 10 ML UD.LIQ PO PRN (16:49)
[2018-08-05] MEDS ORDERED: *HR* LORazepam 2 MG/ML VIAL IM PRN (16:49)
[2018-08-05] MEDS ORDERED: hydrOXYzine pamoate 25 MG CAPSULE PO PRN (16:49)
[2018-08-05] MEDS ORDERED: Ziprasidone 80 MG CAPSULE PO SCH (21:00)
[2018-08-05] MEDS ORDERED: traZODone 50 MG TABLET PO PRN (21:00)
[2018-08-05] MEDS: Gabapentin 300 MG CAPSULE PO SCH (21:10)
[2018-08-05] MEDS: BuPROPion SR (12 HR) 150 MG TABLET PO SCH (21:10)
[2018-08-05] MEDS: Doxycycline 100 MG CAPSULE PO SCH (21:12)
[2018-08-06] MEDS: *HR* OxyCODONE Immed Rel 5 MG TABLET PO SCH ×3 (00:48→13:49)
[2018-08-06] MEDS ORDERED: Levothyroxine 25 MCG TABLET PO SCH (06:30)
[2018-08-06] MEDS ORDERED: Cholecalciferol (D-3) 1,000 UNIT TABLET PO SCH (09:00)
[2018-08-06] MEDS ORDERED: Multivit/Ca/Min/Fe/FA 1 TAB TABLET PO SCH (09:00)
[2018-08-06] MEDS ORDERED: Aspirin 81 MG TAB.CHEW PO SCH (09:00)
[2018-08-06] MEDS ORDERED: hydroCHLOROthiazide 25 MG TABLET PO SCH (09:00)
[2018-08-06] MEDS ORDERED: Ziprasidone 20 MG CAPSULE PO SCH (09:00)
[2018-08-06] MEDS ORDERED: Venlafaxine XR (24 HR) 75 MG CAP.ER.24H PO SCH (09:00)
[2018-08-06] MEDS: Doxycycline 100 MG CAPSULE PO SCH (09:15)
[2018-08-06] MEDS: Gabapentin 300 MG CAPSULE PO SCH (09:16)
[2018-08-06] MEDS: BuPROPion SR (12 HR) 150 MG TABLET PO SCH (09:17)
[2018-08-06 10:33] VITALS: BP 131/87
--- NOTE | 2018-08-06 11:44 | Discharge Summary ---
Date of Encounter: 08/06/18 Time of Encounter: 11:30 History of Present Illness Chief complaint: I can't change medicine every visit, I used to be diazepam Admitted From: Emergency Dept History of Present Illness: Ms. Brunner is a 52 year old female Chief complaint I used to be on Valium. Have gone downhill the past 4 months. My doctor even told me that. History of present illness. The patient reports that she has been on Valium for over 15 years. Review of the hospital records from 2003 2004 certainly support this. The also support that the patient is on high-dose Geodon. A diagnosis of schizoaffective disorder has been given at this institution and others. Patient is being treated for chronic pain. She is under the care of a pain medicine specialist. The state pharmacy report indicates that the patient was taken off Ambien and then over the past few months has been tapered off diazepam now she is off diazepam completely reviewed she did find one that was sitting around and so she took it. Her drug screen was positive for diazepam she says she has been on pain medicines but the urine was negative for opiates. Nonetheless patient is having prescribed treatment for chronic pain that includes gabapentin and opiate pain medicines. When the patient's Geodon was going to be changed she became very upset she had suicidal ideation with a plan. The patient has a variety of other concerns about the [id number] interaction versus tele-psychiatry the fact that she cannot drive or work. That she is going to classes online and needs study. She feels that it are diazepam or other benzodiazepine is important for her treatment. The patient was admitted to the 1A unit. Her medications were verified and she was restarted on. The patient was evaluated on 08/06/2018 she was free of suicidal ideation and wished to return home. She requested some assistance and her follow-up to help her with her ongoing treatment. She was warned about the risk of respiratory suppression and when taking benzodiazepines and opiates together. She has not been on baclofen she has not been on topiramate on the physical examination she is a rather thin individual. Is currently on gabapentin. Please find the portion of the letter below to be sent to her providers. As you know your patient Doc Brunner was placed on observation status on [place] 1A. She has had the same psychiatric diagnosis. Her presenting problem was of suicidal ideation and panic attacks. The patient developed suicidal ideation after a recent [facility]. She was stabilized and observed on our unit. We did not change any medications. This patient reports panic attacks. Some panic attacks were so severe she could not drive could not work and presented to the emergency room on multiple occasions. We have reviewed her hospital records going back to 2003. The patient has always been on a benzodiazepine and other medicines until a few months ago when she was tapered off of diazepam Currently the patient is being treated for chronic pain by Dr. Vadim Kasper. DO [facility]. I have reviewed the state pharmacy report. The patient has signed a controlled substances agreement in the pain clinic. The patient also sees a family practitioner Dr. Higuera in the [facility]. The patient has been warned of the danger of respiratory suppression and with the use of benzodiazepines and opiates. She is aware that benzodiazepines may increase the risk of overdose while taking benzodiazepines. She recognizes this risk but feels the benefits outweigh the risk. Doc Brunner has been seen by a variety of practitioners over the years. These occurred in [id number] settings. While telepsychiatry is important to provide ongoing mental health care, she is uncomfortable and says the visits are not as effective and may be shorter. She is concerned that multiple medicines may be changed with out adjusting to each foreign exchange dealer a period of weeks to months. She reports that she has had a pharmacogenetic testing some years ago. But she is not aware of the results. This type of testing may be helpful to determine the best medicines and their tolerability. Suicidal ideation and mood have improved in the hospital stay but concerned about panic attacks remains. The patient could be considered for non- benzodiazepine antianxiety agents such as baclofen 10 mg 3 times a day, topiramate 50 mg to 200 mg per day. However the patient is a low body weight individual. I have talked to the patient about asking Dr. Kasper prescribed diazepam but he has told her that he does not feel that this is within his scope of practice. I recommend that she is seen one to 2 weeks after her discharge from the hospital 08/06/2018. This patient may benefit from ongoing trials of medication, reconsideration of benzodiazepines, change in setting or provider or consultation with outside providers and review of pharmacogenetic testing. That is to say some patients due not do well with Telepsychiatry and do better in [id number] office visits. I will send a copy of this letter to her other providers. Also you may wish to review her policy on benzodiazepines and opiates as there may be exceptions for certain patients pending on their clinical status or clinical needs. This patient may be an exception to the rule. Sincerely Gary Daniels M.D., partnered physician [facility] Copy to Dr. Tatiana Winchester, copy to Mr. Brigido Alvarenga , Debby of [facility] Copy to Dr. Vadim Kasper, Pain management physician [facility] Copy to Dr. Higuera resident [facility] clinic Past Med Surg Social Fam HX - Past Medical History Medical history: arthritis, asthma, COPD, GERD, hyperlipidemia, hypertension, migraine, thyroid disease - Past Psychiatric History Psychiatric history: Reports: schizophrenia, previous psychiatric hospitalization Family psychiatric history: Yes Family History of Suicide: Completed - Past Surgical History Surgical History: cholecystectomy, hysterectomy, orthopedic, other, other - Social History Smoking Status: Former smoker Smokeless Tobacco Status: No Alcohol use: none Drug use: none Occupational status: previously employed Current living situation: Home, With Family Activity Level: Independent ambulation Recent Out of Country Travel Within the Last 8 Weeks: No Exposure or Possible Exposure to Illness During Travel: No - Family History Father Adopted: No Living Status: Age at : 72 Cause of : Cardiac Hx Family Cardiac Disorders: Yes Hx Family Respiratory Disorders: Yes Hx Family Cancer: Yes (cervical, bowel, stomach, lungs and stomach cancer) Hx Family GI Disorders: Yes (cancer) Hx Family Genitourinary Disorders: No Hx Family Endocrine Disorder: Yes (Diabetes) Hx Family Musculoskeletal Disorders: Yes Hx Family Neuromuscular Disorders: Yes Hx Family Neurologic Disorders: Yes (Mother had muscular dystrophy) Hx Family Autoimmune Disorders: Yes Hx Family Psychosocial Disorders: Yes (history of cervical cancer) Hx Family Medical Disorders: No Mother Adopted: No Living Status: Hx Family Cardiac Disorders: Yes Hx Family Endocrine Disorder: Yes Medications - Discharge Medications Calcium Carbonate/Vitamin D3 [Calcium 600+D Softgel] 2 tab PO QAM 04/06/15 [History] Ziprasidone HCl [Geodon] 40 mg PO QAM 04/06/15 [History] Meloxicam [Mobic] 15 mg PO HS 03/16/17 [History] Omeprazole [PriLOSEC] 40 mg PO BID 03/16/17 [History] Aspirin 81 mg PO QAM #30 03/17/17 [Rx] Levothyroxine [Synthroid] 25 mcg PO 0630 03/25/18 [History] Multivitamin [One Daily Essential] 1 tab PO DAILY 03/25/18 [History] Simvastatin [Zocor] 10 mg PO HS 03/25/18 [History] Ziprasidone [Geodon] 160 mg PO HS 03/25/18 [History] BuPROPion SR (12 HR) [Wellbutrin SR] 150 mg PO BID 04/24/18 [History] Cyclobenzaprine [Flexeril] 10 mg PO Q8H 08/05/18 [History] Doxycycline Hyclate 100 mg PO BID 08/05/18 [History] Gabapentin [Neurontin] 600 mg PO TID 08/05/18 [History] OxyCODONE Immed Rel [Roxicodone 10 MG] 10 mg PO QID 08/05/18 [History] Venlafaxine XR (24 HR) [Effexor Xr] 75 mg PO DAILY 08/05/18 [History] hydroCHLOROthiazide [Hydrochlorothiazide] 12.5 mg PO DAILY 08/05/18 [History] Allergy/AdvReac Type Severity Reaction Status Date / Time acetaminophen [From Midol] Allergy Difficulty Verified 08/05/18 19:19 Breathing Buspirone [From BuSpar] Allergy Unresponsiv Verified 08/05/18 19:19 e ibuprofen Allergy Difficulty Verified 08/05/18 19:19 Breathing pamabrom [From Midol] Allergy Difficulty Verified 08/05/18 19:19 Breathing tramadol [From Ultram] Allergy Difficulty Verified 08/05/18 19:19 Breathing propoxyphene [From Darvon] AdvReac Nausea Verified 08/05/18 19:19 Review of Systems Psychiatric: Reports: anxiety Exam - HEENT Head exam IM: Present: atraumatic Eye exam IM: Present: EOMI, normal appearance, PERRL ENT exam IM: Present: normal exam - Neurological Neurological exam: Present: CN II-XII intact - Respiratory Respiratory exam IM: Present: CTAB - GI/Abdominal GI/Abdominal exam IM: Present: normal bowel sounds, soft. Absent: tenderness - Extremities Extremities exam IM: Present: full ROM - Skin Skin exam IM: Present: dry, warm - Constitutional Vitals: Temp Pulse Resp BP Pulse Ox 98.9 F 102 16 131/87 96 08/06/18 09:00 08/06/18 09:00 08/06/18 09:00 08/06/18 09:00 08/06/18 09:00 General appearance: age & developmentally appropriate, well-groomed, well- nourished - Musculoskeletal Gait: normal Station: relaxed Strength & Tone: normal for patient - Psychiatric Patient Orientation: Yes Person, Yes Time, Yes Place Level of alertness: Alert Behavior: calm, cooperative Psychomotor activity: Normal Eye Contact: Maintains Eye Contact Mood Description: Anxious Affect description: congruent with mood, full range, anxious Speech Volume: Normal Speech pattern: normal rate, normal rhythm, normal tone, fluent, spontaneous Language & Vocabulary: consistent with education Thought Process: Linear, Goal Oriented Thought Content: No Suicidal ideation, No Homicidal ideation, No Overt delusions Perceptual Disturbances: No Auditory hallucinations, No Visual hallucinations Attention Span Ability: Capable of Focused Attention Memory Description: Grossly Intact Patient Reliability: Reliable Historian Fund of knowledge: Yes abstraction ability, Yes average, Yes aware of current events Intelligence Estimate: Average Judgment: Good Insight: Full Results - Drug Levels and Toxicology Drug Levels and Toxicology: Drug Levels and Toxicity 08/05/18 08/05/18 14:55 15:03 Urine Opiates Screen Negative Acetaminophen < 10 L Ur Barbiturates Screen Negative Ur Phencyclidine Scrn Negative Ur Amphetamines Screen Negative U Benzodiazepines Scrn Positive H Urine Cocaine Screen Negative U Marijuana (THC) Screen Negative Ethyl Alcohol < 10 - Labs Labs: Laboratory Last Values WBC 4.7 K/mcL (4.3-11.1) 08/05/18 15:03 RBC 4.61 M/mcL (3.82-4.97) 08/05/18 15:03 Hgb 14.6 g/dL (11.5-15.4) 08/05/18 15:03 Hct 42.7 % (35.3-44.9) 08/05/18 15:03 MCV 92.6 fL (83.0-100.0) 08/05/18 15:03 MCH 31.7 pg (28.0-33.3) 08/05/18 15:03 MCHC 34.2 g/dL (31.6-35.5) 08/05/18 15:03 RDW 11.4 % (11.5-14.5) L 08/05/18 15:03 Plt Count 304 K/mcL (140-400) 08/05/18 15:03 MPV 8.6 fL (9.4-12.4) L 08/05/18 15:03 Immature Gran % 0.2 % (0-4) 08/05/18 15:03 Seg Neutrophils % 64.1 % 08/05/18 15:03 Lymphocytes % 27.0 % 08/05/18 15:03 Monocytes % 7.4 % 08/05/18 15:03 Eosinophils % 0.9 % 08/05/18 15:03 Basophils % 0.4 % 08/05/18 15:03 Neutrophils # 3.0 K/mcL (1.6-8.9) 08/05/18 15:03 Lymphocytes # 1.3 K/mcL (0.6-4.6) 08/05/18 15:03 Monocytes # 0.4 K/mcL (0.0-1.3) 08/05/18 15:03 Eosinophils # 0.0 K/mcL (0.0-0.6) 08/05/18 15:03 Basophils # 0.0 K/mcL (0.0-0.2) 08/05/18 15:03 Sodium 137 mEq/L (136-145) 08/05/18 15:03 Potassium 3.8 mEq/L (3.5-5.1) 08/05/18 15:03 Chloride 101 mEq/L (98-107) 08/05/18 15:03 Carbon Dioxide 29 mEq/L (23-29) 08/05/18 15:03 BUN 6 mg/dL (6-20) 08/05/18 15:03 Creatinine 0.79 mg/dL (0.60-1.20) 08/05/18 15:03 Est GFR ( Amer) > 60 (> 60) 08/05/18 15:03 Est GFR (Non-Af Amer) > 60 (> 60) 08/05/18 15:03 BUN/Creatinine Ratio 8 (6-26) 08/05/18 15:03 Glucose 120 mg/dL (70-105) H 08/05/18 15:03 Calculated Osmolality 283 (280-300) 08/05/18 15:03 Calcium 9.8 mg/dL (8.6-10.3) 08/05/18 15:03 Urine Color Yellow (Yellow) 08/05/18 14:55 Urine Clarity Clear (Clear) 08/05/18 14:55 Urine pH 7.5 pH Units (5.0-8.0) 08/05/18 14:55 Ur Specific [place] < 1.005 (1.010-1.025) L 08/05/18 14:55 Urine Protein Negative mg/dL (Neg-Trace) 08/05/18 14:55 Urine Glucose (UA) Normal mg/dL (Normal) 08/05/18 14:55 Urine Ketones Negative mg/dL (Negative) 08/05/18 14:55 Urine Blood Negative (Negative) 08/05/18 14:55 Urine Nitrite Negative (Negative) 08/05/18 14:55 Urine Bilirubin Negative (Negative) 08/05/18 14:55 Urine Urobilinogen Normal mg/dL (Normal) 08/05/18 14:55 Ur Leukocyte Esterase Negative (Negative) 08/05/18 14:55 Salicylates < 2.5 mg/dL (15.0-30.0) L 08/05/18 15:03 Urine Opiates Screen Negative ng/mL (Mfpxun=595) 08/05/18 14:55 Acetaminophen < 10 mcg/mL (10-20) L 08/05/18 15:03 Ur Barbiturates Screen Negative ng/mL (Oiqysy=948) 08/05/18 14:55 Ur Phencyclidine Scrn Negative ng/mL (Cutoff=25) 08/05/18 14:55 Ur Amphetamines Screen Negative ng/mL (Ykwsuz=4945) 08/05/18 14:55 U Benzodiazepines Scrn Positive ng/mL (Essqar=342) H 08/05/18 14:55 Urine Cocaine Screen Negative ng/mL (Cutoff= 300) 08/05/18 14:55 U Marijuana (THC) Screen Negative ng/mL (Cutoff = 50) 08/05/18 14:55 Ur Drug Screen Interp See Below 08/05/18 14:55 Ethyl Alcohol < 10 mg/dL (Less than 10) 08/05/18 15:03 Diagnosis - Discharge Diagnosis (1) Chronic pain Priority: Secondary Status: Acute Qualifiers: Chronic pain type: other chronic postprocedural pain Qualified Code(s): G89.28 - Other chronic postprocedural pain (2) Anxiety about health Priority: Secondary Status: Acute (3) Schizoaffective disorder Priority: Primary Status: Acute Qualifiers: Schizoaffective disorder type: depressive Qualified Code(s): F25.1 - Schizoaffective disorder, depressive type (4) Suicidal ideation Priority: Secondary Status: Resolved Assessment and Plan - Patient/Caregiver Discharge Instructions Activity: resume usual activities as tolerated Diet: regular diet - Follow up Plan Follow up with: NONE,PCP [Primary Care Provider] - Functional capacity at discharge: independent ambulation Overall status at discharge: Stable Disposition: Home, Self-Care Provider Date of admission: 08/05/18 16:11 Primary care physician: PCP NONE Discharging clinician: Gary Daniels Hospital Course Hospital course: Ms. Brunner is a 52 year old female - Time Spent with Patient Total time spent providing and/or coordinating discharge services: Greater than 30 minutes Procedures - Procedures Procedures: Medication Management, Crisis Stabilization, Supportive Therapy, Group Therapy, Psychoeducational Therapy Quality - Multiple Antipsychotics Patient discharged on 2 or more antipsychotic medications: No
== END 2018-08-06 13:55 | disposition home or self-care (01) ==
LOC: EMEROOARM 14:36 → 1ANU 14:36
PROVIDERS: ADMIT Psychiatry & Neurology Forensic Psychiatry; ATTEND Psychiatry & Neurology Forensic Psychiatry

== ENCOUNTER 2018-08-10 16:19 | Inpatient (IN) ==
[2018-08-10 17:00] LABS: Basophils % 0.5 %; Eosinophils % 0.2 %; Hematocrit 40.2 % (35.3-44.9); Hemoglobin 13.8 g/dL (11.5-15.4); Immature Granulocytes % 0.3 % (0-4); Lymphocytes # 1.5 K/mcL (0.6-4.6); Lymphocytes % 23.2 %; Mean Corpuscular HGB Conc 34.3 g/dL (31.6-35.5); Mean Corpuscular Hemoglobin 31.6 pg (28.0-33.3); Mean Platelet Volume 8.7 fL (9.4-12.4); Monocytes # 0.5 K/mcL (0.0-1.3); Monocytes % 7.5 %; Neutrophils # 4.4 K/mcL (1.6-8.9); Platelet Count 349 K/mcL (140-400); Red Blood Count 4.37 M/mcL (3.82-4.97); Red Cell Distribution Width 11.4 % (11.5-14.5); Segmented Neutrophils % 68.3 %
--- NOTE | 2018-08-10 17:02 | Emergency Department Note ---
Disposition Clinical Impression: Suicidal ideation, Hallucinations Disposition: Admitted As Inpatient Condition: Good Referrals: NONE,PCP [Primary Care Provider] - Forms: ED Satisfaction Letter Psych HPI - General Chief Complaint: ED Psychiatric Symptoms Stated Complaint: SI Time Seen by Provider: 08/10/18 16:27 Source: patient Mode of arrival: private vehicle Limitations: no limitations Nursing Notes Reviewed: Yes Vital Signs Reviewed: Yes - History of Present Illness HPI Narrative: 52-year-old female history of schizophrenia and bipolar who presents to the ER with a complaint of suicidal ideation and hallucinations. Reports that she was admitted on Thursday for worsening anxiety. Reports she is hearing voices that are telling her to harm herself. Denies a prior history of suicide attempt. Reports compliance with her medications. Denies any alcohol or drug use. Pt complaint: suicidal ideation, anxiety Onset (ago): day(s) Improves with: none Worsens with: none Alleged intoxication: No Associated Psychiatric Symptoms: suicidal ideation, anxiety Traumatic symptoms: denies traumatic injury Treatments prior to arrival: none Self harm or harm to others: admits thoughts of self harm - Related Data Home Medications Medication Instructions Recorded Confirmed Calcium Carbonate/Vitamin D3 2 tab PO QAM 04/06/15 08/05/18 [Calcium 600+D Softgel] Ziprasidone HCl [Geodon] 40 mg PO QAM 04/06/15 08/05/18 Meloxicam [Mobic] 15 mg PO HS 03/16/17 08/05/18 Omeprazole [PriLOSEC] 40 mg PO BID 03/16/17 08/05/18 Levothyroxine [Synthroid] 25 mcg PO 0630 03/25/18 08/05/18 Multivitamin [One Daily Essential] 1 tab PO DAILY 03/25/18 08/05/18 Simvastatin [Zocor] 10 mg PO HS 03/25/18 08/05/18 Ziprasidone [Geodon] 160 mg PO HS 03/25/18 08/05/18 BuPROPion SR (12 HR) [Wellbutrin 150 mg PO BID 04/24/18 08/05/18 SR] Cyclobenzaprine [Flexeril] 10 mg PO Q8H 08/05/18 08/05/18 Doxycycline Hyclate 100 mg PO BID 08/05/18 08/05/18 Gabapentin [Neurontin] 600 mg PO TID 08/05/18 08/05/18 OxyCODONE Immed Rel [Roxicodone 10 10 mg PO QID 08/05/18 08/05/18 MG] Venlafaxine XR (24 HR) [Effexor Xr] 75 mg PO DAILY 08/05/18 08/05/18 hydroCHLOROthiazide 12.5 mg PO DAILY 08/05/18 08/05/18 [Hydrochlorothiazide] Previous Rx's Medication Instructions Recorded Aspirin 81 mg PO QAM #30 03/17/17 Allergies Allergy/AdvReac Type Severity Reaction Status Date / Time acetaminophen [From Midol] Allergy Difficulty Verified 08/05/18 19:19 Breathing Buspirone [From BuSpar] Allergy Unresponsiv Verified 08/05/18 19:19 e ibuprofen Allergy Difficulty Verified 08/05/18 19:19 Breathing pamabrom [From Midol] Allergy Difficulty Verified 08/05/18 19:19 Breathing tramadol [From Ultram] Allergy Difficulty Verified 08/05/18 19:19 Breathing propoxyphene [From Darvon] AdvReac Nausea Verified 08/05/18 19:19 All systems ED: reviewed and negative except as stated. Psychiatric: Reports: anxiety, suicidal thoughts, auditory hallucinations. Denies: depression, homicidal thoughts, visual hallucinations Past Medical History - Past Medical History Attestation: Yes The following information was validated with the patient. 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 - Social History Smoking Status: Former smoker Smokeless Tobacco Status: No Alcohol use: Reports: none Drug use: Reports: none Physical Exam - General Limitations: no limitations General appearance: alert, anxious - Head Head exam: atraumatic, normocephalic, normal inspection - Eye Eye exam: Present: normal appearance - ENT ENT exam: normal exam - Neck Neck exam: Present: normal inspection - Chest Chest inspection: Present: normal inspection, symmetric chest wall rise - Respiratory Respiratory exam: Present: normal lung sounds bilaterally - Cardiovascular Cardiovascular exam: Present: regular rate, normal rhythm, normal heart sounds - Abdominal Exam Abdominal exam: Present: soft, Non-Tender. Absent: tenderness, distention, rigidity - Extremities Exam Extremities exam: Present: normal inspection, full ROM - Expanded Upper Extremity Exam Shoulder exam: Present: normal inspection, full ROM Arm exam: Present: normal inspection, full ROM Elbow exam: Present: normal inspection, full ROM Forearm/Wrist exam: Present: normal inspection, full ROM Hand exam: Present: normal inspection, full ROM - Expanded Lower Extremity Exam Hip/Pelvis exam: Present: normal inspection, full ROM Upper leg exam: Present: normal inspection, full ROM Knee exam: Present: normal inspection, full ROM Lower leg exam: Present: normal inspection, full ROM Ankle exam: Present: normal inspection, full ROM Foot/toe exam: Present: normal inspection, full ROM - Psychiatric Psychiatric exam: Present: anxious, suicidal ideation - Skin Skin exam: Present: warm, dry Course Course Narrative: Patient seen and examined. Vital signs reviewed. Patient is pink slipped pending medical clearance and psychiatric evaluation. - Reevaluation(s) Reevaluation #1: Medically cleared Time: 17:43 Vital Signs Temperature 98.2 F 08/10/18 16:24 Pulse Rate 92 08/10/18 16:24 Respiratory Rate 18 08/10/18 16:24 Blood Pressure 168/100 08/10/18 16:24 O2 Sat by Pulse Oximetry 100 08/10/18 16:24 Temperature 98.2 F 08/10/18 16:57 Pulse Rate 92 08/10/18 16:57 Respiratory Rate 18 08/10/18 16:57 Blood Pressure 168/100 08/10/18 16:57 O2 Sat by Pulse Oximetry 100 08/10/18 16:57 Oxygen Delivery Oxygen Delivery Room Air Psych - MDM Narrative Medical decision making narrative: 52-year-old female present with suicidal ideation and hallucinations. She is medically cleared for psychiatric evaluation. Patient was evaluated and deemed appropriate for inpatient management. - Lab Data Lab results reviewed: Yes I reviewed the patient's lab results. Result diagrams: 08/10/18 16:41 08/10/18 16:41 Lab Results 08/10/18 08/10/18 08/10/18 Range/Units 16:41 16:41 16:54 WBC 6.4 (4.3-11.1) K/mcL RBC 4.37 (3.82-4.97) M/mcL Hgb 13.8 (11.5-15.4) g/dL Hct 40.2 (35.3-44.9) % MCV 92.0 (83.0-100.0) fL MCH 31.6 (28.0-33.3) pg MCHC 34.3 (31.6-35.5) g/dL RDW 11.4 L (11.5-14.5) % Plt Count 349 (140-400) K/mcL MPV 8.7 L (9.4-12.4) fL Immature Gran % 0.3 (0-4) % Seg Neutrophils % 68.3 % Lymphocytes % 23.2 % Monocytes % 7.5 % Eosinophils % 0.2 % Basophils % 0.5 % Neutrophils # 4.4 (1.6-8.9) K/mcL Lymphocytes # 1.5 (0.6-4.6) K/mcL Monocytes # 0.5 (0.0-1.3) K/mcL Eosinophils # 0.0 (0.0-0.6) K/mcL Basophils # 0.0 (0.0-0.2) K/mcL Sodium 136 (136-145) mEq/L Potassium 3.4 L (3.5-5.1) mEq/L Chloride 101 (98-107) mEq/L Carbon Dioxide 27 (23-29) mEq/L BUN 12 (6-20) mg/dL Creatinine 0.82 (0.60-1.20) mg/dL Est GFR ( Amer) > 60 (> 60) Est GFR (Non-Af Amer) > 60 (> 60) BUN/Creatinine Ratio 15 (6-26) Glucose 109 H (70-105) mg/dL Calculated Osmolality 282 (280-300) Calcium 9.7 (8.6-10.3) mg/dL TSH 1.437 (0.340-5.600) mcIU/mL Urine Color Yellow (Yellow) Urine Clarity Clear (Clear) Urine pH 7.0 (5.0-8.0) pH Units Ur Specific [place] 1.013 (1.010-1.025) Urine Protein Negative (Neg-Trace) mg/dL Urine Glucose (UA) Normal (Normal) mg/dL Urine Ketones Negative (Negative) mg/dL Urine Blood Negative (Negative) Urine Nitrite Negative (Negative) Urine Bilirubin Negative (Negative) Urine Urobilinogen Normal (Normal) mg/dL Ur Leukocyte Esterase Negative (Negative) Salicylates < 2.5 L (15.0-30.0) mg/dL Urine Opiates Screen (Ibmobv=600) ng/mL Acetaminophen < 10 L (10-20) mcg/mL Ur Barbiturates Screen (Xpivss=083) ng/mL Ur Phencyclidine Scrn (Cutoff=25) ng/mL Ur Amphetamines Screen (Cdezvz=6302) ng/mL U Benzodiazepines Scrn (Cgfsdp=066) ng/mL Urine Cocaine Screen (Cutoff= 300) ng/mL U Marijuana (THC) Screen (Cutoff = 50) ng/mL Ur Drug Screen Interp Ethyl Alcohol < 10 (Less than 10) mg/dL 08/10/18 Range/Units 16:54 WBC (4.3-11.1) K/mcL RBC (3.82-4.97) M/mcL Hgb (11.5-15.4) g/dL Hct (35.3-44.9) % MCV (83.0-100.0) fL MCH (28.0-33.3) pg MCHC (31.6-35.5) g/dL RDW (11.5-14.5) % Plt Count (140-400) K/mcL MPV (9.4-12.4) fL Immature Gran % (0-4) % Seg Neutrophils % % Lymphocytes % % Monocytes % % Eosinophils % % Basophils % % Neutrophils # (1.6-8.9) K/mcL Lymphocytes # (0.6-4.6) K/mcL Monocytes # (0.0-1.3) K/mcL Eosinophils # (0.0-0.6) K/mcL Basophils # (0.0-0.2) K/mcL Sodium (136-145) mEq/L Potassium (3.5-5.1) mEq/L Chloride (98-107) mEq/L Carbon Dioxide (23-29) mEq/L BUN (6-20) mg/dL Creatinine (0.60-1.20) mg/dL Est GFR ( Amer) (> 60) Est GFR (Non-Af Amer) (> 60) BUN/Creatinine Ratio (6-26) Glucose (70-105) mg/dL Calculated Osmolality (280-300) Calcium (8.6-10.3) mg/dL TSH (0.340-5.600) mcIU/mL Urine Color (Yellow) Urine Clarity (Clear) Urine pH (5.0-8.0) pH Units Ur Specific [place] (1.010-1.025) Urine Protein (Neg-Trace) mg/dL Urine Glucose (UA) (Normal) mg/dL Urine Ketones (Negative) mg/dL Urine Blood (Negative) Urine Nitrite (Negative) Urine Bilirubin (Negative) Urine Urobilinogen (Normal) mg/dL Ur Leukocyte Esterase (Negative) Salicylates (15.0-30.0) mg/dL Urine Opiates Screen Negative (Jthohz=507) ng/mL Acetaminophen (10-20) mcg/mL Ur Barbiturates Screen Negative (Zotevq=362) ng/mL Ur Phencyclidine Scrn Negative (Cutoff=25) ng/mL Ur Amphetamines Screen Negative (Fdjogi=4772) ng/mL U Benzodiazepines Scrn Negative (Jxtdvx=508) ng/mL Urine Cocaine Screen Negative (Cutoff= 300) ng/mL U Marijuana (THC) Screen Negative (Cutoff = 50) ng/mL Ur Drug Screen Interp See Below Ethyl Alcohol (Less than 10) mg/dL Psychiatric Medical Clearance - Medical Clearance Checklist Medical History: No Social History Section defined Current Vitals: Last Vital Signs Temp 98.2 F 08/10/18 16:57 Pulse 92 08/10/18 16:57 Resp 18 08/10/18 16:57 BP 168/100 08/10/18 16:57 Pulse Ox 100 08/10/18 16:57 Psychiatric Lab Panel: Drug Levels and Toxicity 08/10/18 08/10/18 16:41 16:54 Urine Opiates Screen Negative Acetaminophen < 10 L Ur Barbiturates Screen Negative Ur Phencyclidine Scrn Negative Ur Amphetamines Screen Negative U Benzodiazepines Scrn Negative Urine Cocaine Screen Negative U Marijuana (THC) Screen Negative Ethyl Alcohol < 10 Abnormal Labs: Abnormal lab results RDW 11.4 % (11.5-14.5) L 08/10/18 16:41 MPV 8.7 fL (9.4-12.4) L 08/10/18 16:41 Potassium 3.4 mEq/L (3.5-5.1) L 08/10/18 16:41 Glucose 109 mg/dL (70-105) H 08/10/18 16:41 Salicylates < 2.5 mg/dL (15.0-30.0) L 08/10/18 16:41 Acetaminophen < 10 mcg/mL (10-20) L 08/10/18 16:41 Statement of Medical Clearance: I have evaluated the patient, reviewed diagnostic information, and certify that the patient's medical condition is sufficiently stable that transfer to the psychiatric unit does not pose a significant risk of deterioration.
[2018-08-10 17:13] LABS: Bilirubin,Urine Negative (Negative); Blood,Urine Negative (Negative); Clarity,Urine Clear (Clear); Color,Urine Yellow (Yellow); Glucose,Urine (UA) Normal (Normal); Ketones,Urine Negative (Negative); Leukocyte Esterase,Urine Negative (Negative); Nitrite,Urine Negative (Negative); Protein,Urine Negative (Neg-Trace); Specific Gravity,Urine 1.013 (1.010-1.025); Urobilinogen,Urine Normal (Normal)
--- NOTE | 2018-08-10 17:21 | Emergency Department Note ---
Disposition Clinical Impression: Suicidal ideation Disposition: Still a Patient Referrals: NONE,PCP [Primary Care Provider] - Forms: ED Satisfaction Letter General Adult HPI - General Chief complaint: ED Psychiatric Symptoms Stated complaint: SI Time Seen by Provider: 08/10/18 16:27 Source: patient Mode of arrival: private vehicle Limitations: no limitations - History of Present Illness Pain Scale: 0 - Related Data Home Medications Medication Instructions Recorded Confirmed Calcium Carbonate/Vitamin D3 2 tab PO QAM 04/06/15 08/05/18 [Calcium 600+D Softgel] Ziprasidone HCl [Geodon] 40 mg PO QAM 04/06/15 08/05/18 Meloxicam [Mobic] 15 mg PO HS 03/16/17 08/05/18 Omeprazole [PriLOSEC] 40 mg PO BID 03/16/17 08/05/18 Levothyroxine [Synthroid] 25 mcg PO 0603/25/18 08/05/18 Multivitamin [One Daily Essential] 1 tab PO DAILY 03/25/18 08/05/18 Simvastatin [Zocor] 10 mg PO HS 03/25/18 08/05/18 Ziprasidone [Geodon] 160 mg PO HS 03/25/18 08/05/18 BuPROPion SR (12 HR) [Wellbutrin 150 mg PO BID 04/24/18 08/05/18 SR] Cyclobenzaprine [Flexeril] 10 mg PO Q8H 08/05/18 08/05/18 Doxycycline Hyclate 100 mg PO BID 08/05/18 08/05/18 Gabapentin [Neurontin] 600 mg PO TID 08/05/18 08/05/18 OxyCODONE Immed Rel [Roxicodone 10 10 mg PO QID 08/05/18 08/05/18 MG] Venlafaxine XR (24 HR) [Effexor Xr] 75 mg PO DAILY 08/05/18 08/05/18 hydroCHLOROthiazide 12.5 mg PO DAILY 08/05/18 08/05/18 [Hydrochlorothiazide] Previous Rx's Medication Instructions Recorded Aspirin 81 mg PO QAM #30 03/17/17 Allergies Allergy/AdvReac Type Severity Reaction Status Date / Time acetaminophen [From Midol] Allergy Difficulty Verified 08/05/18 19:19 Breathing Buspirone [From BuSpar] Allergy Unresponsiv Verified 08/05/18 19:19 e ibuprofen Allergy Difficulty Verified 08/05/18 19:19 Breathing pamabrom [From Midol] Allergy Difficulty Verified 08/05/18 19:19 Breathing tramadol [From Ultram] Allergy Difficulty Verified 08/05/18 19:19 Breathing propoxyphene [From Darvon] AdvReac Nausea Verified 08/05/18 19:19 Psychiatric: Reports: anxiety, suicidal thoughts, auditory hallucinations. 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 - Social History Smoking Status: Former smoker Smokeless Tobacco Status: No Alcohol use: Reports: none Drug use: Reports: none Physical Exam - General Limitations: no limitations General appearance: alert, anxious Course Vital Signs Temperature 98.2 F 08/10/18 16:24 Pulse Rate 92 08/10/18 16:24 Respiratory Rate 18 08/10/18 16:24 Blood Pressure 168/100 08/10/18 16:24 O2 Sat by Pulse Oximetry 100 08/10/18 16:24 Temperature 98.2 F 08/10/18 16:57 Pulse Rate 92 08/10/18 16:57 Respiratory Rate 18 08/10/18 16:57 Blood Pressure 168/100 08/10/18 16:57 O2 Sat by Pulse Oximetry 100 08/10/18 16:57 Oxygen Delivery Oxygen Delivery Room Air Medical Decision Making - Lab Data Result diagrams: 08/10/18 16:41 Lab Results 08/10/18 08/10/18 08/10/18 Range/Units 16:41 16:54 16:54 WBC 6.4 (4.3-11.1) K/mcL RBC 4.37 (3.82-4.97) M/mcL Hgb 13.8 (11.5-15.4) g/dL Hct 40.2 (35.3-44.9) % MCV 92.0 (83.0-100.0) fL MCH 31.6 (28.0-33.3) pg MCHC 34.3 (31.6-35.5) g/dL RDW 11.4 L (11.5-14.5) % Plt Count 349 (140-400) K/mcL MPV 8.7 L (9.4-12.4) fL Immature Gran % 0.3 (0-4) % Seg Neutrophils % 68.3 % Lymphocytes % 23.2 % Monocytes % 7.5 % Eosinophils % 0.2 % Basophils % 0.5 % Neutrophils # 4.4 (1.6-8.9) K/mcL Lymphocytes # 1.5 (0.6-4.6) K/mcL Monocytes # 0.5 (0.0-1.3) K/mcL Eosinophils # 0.0 (0.0-0.6) K/mcL Basophils # 0.0 (0.0-0.2) K/mcL Urine Color Yellow (Yellow) Urine Clarity Clear (Clear) Urine pH 7.0 (5.0-8.0) pH Units Ur Specific [place] 1.013 (1.010-1.025) Urine Protein Negative (Neg-Trace) mg/dL Urine Glucose (UA) Normal (Normal) mg/dL Urine Ketones Negative (Negative) mg/dL Urine Blood Negative (Negative) Urine Nitrite Negative (Negative) Urine Bilirubin Negative (Negative) Urine Urobilinogen Normal (Normal) mg/dL Ur Leukocyte Esterase Negative (Negative) Ur Drug Screen Interp See Below Attestation Statement - Attestation Attestation: I examined this patient and my medical decision-making was reviewed with the Resident Physician. I agree with the documented findings, disposition and treatment plan as described except to the extent set forth below. 52 year old female presents to the ED with complaints of SI and was most recently admitted to the 1A service for SI relatd issues and is starting to experience simliar problems again. We will do medical clearance and then consult 1A
[2018-08-10 17:24] LABS: Acetaminophen < 10 mcg/mL (10-20); BUN/Creatinine Ratio 15 (6-26); Blood Urea Nitrogen 12 mg/dL (6-20); Calcium 9.7 mg/dL (8.6-10.3); Carbon Dioxide 27 mEq/L (23-29); Chloride 101 mEq/L (98-107); Ethanol < 10 mg/dL (Less than 10); Glucose 109 mg/dL (70-105); Osmolality,Calculated 282 (280-300); Potassium 3.4 mEq/L (3.5-5.1); Salicylate < 2.5 mg/dL (15.0-30.0); Sodium 136 mEq/L (136-145); eGFR For Non-African Americans > 60 (> 60)
[2018-08-10 17:31] LABS: Thyroid Stimulating Hormone 1.437 mcIU/mL (0.340-5.600)
[2018-08-10 17:46] LABS: Amphetamine Screen,Urine Negative ng/mL (Cutoff=1000); Barbiturate Screen,Urine Negative ng/mL (Cutoff=200); Benzodiazepines Screen,Urine Negative ng/mL (Cutoff=200); Cannabinoid Screen,Urine Negative ng/mL (Cutoff = 50); Cocaine Screen,Urine Negative ng/mL (Cutoff= 300); Opiate Screen,Urine Negative ng/mL (Cutoff=300); Phencyclidine Screen,Urine Negative ng/mL (Cutoff=25)
[2018-08-10] MEDS ORDERED: MOM Conc 10 ML UD.LIQ PO PRN (18:51)
[2018-08-10] MEDS ORDERED: traZODone 50 MG TABLET PO PRN (18:51)
[2018-08-10] MEDS ORDERED: Haloperidol Lactate 5 MG/ML VIAL IM PRN (18:51)
[2018-08-10] MEDS ORDERED: *HR* LORazepam 1 MG TABLET PO PRN (18:51)
[2018-08-10] MEDS ORDERED: *HR* LORazepam 2 MG/ML VIAL IM PRN (18:51)
[2018-08-10] MEDS: hydrOXYzine pamoate 25 MG CAPSULE PO PRN (20:49)
[2018-08-10] MEDS: *HR* OxyCODONE Immed Rel 5 MG TABLET PO SCH (23:43)
[2018-08-10] MEDS: Ziprasidone 80 MG CAPSULE PO SCH (23:43)
[2018-08-10] MEDS: Doxycycline 100 MG CAPSULE PO SCH (23:44)
[2018-08-10] MEDS: BuPROPion SR (12 HR) 150 MG TABLET PO SCH (23:44)
[2018-08-10] MEDS: Gabapentin 300 MG CAPSULE PO SCH (23:44)
[2018-08-11] MEDS: hydroCHLOROthiazide 25 MG TABLET PO SCH (08:40)
[2018-08-11] MEDS: *HR* OxyCODONE Immed Rel 5 MG TABLET PO SCH ×4 (08:41→20:18)
[2018-08-11] MEDS: Gabapentin 300 MG CAPSULE PO SCH ×3 (08:42→20:17)
[2018-08-11] MEDS: BuPROPion SR (12 HR) 150 MG TABLET PO SCH (08:42)
[2018-08-11] MEDS: Aspirin 81 MG TAB.CHEW PO SCH (08:43)
[2018-08-11] MEDS: Levothyroxine 25 MCG TABLET PO SCH (08:43)
[2018-08-11] MEDS ORDERED: Venlafaxine XR (24 HR) 37.5 MG CAP.ER.24H PO SCH (09:00)
[2018-08-11] MEDS ORDERED: Ziprasidone 20 MG CAPSULE PO SCH (09:00)
[2018-08-11] MEDS ORDERED: Venlafaxine XR (24 HR) 75 MG CAP.ER.24H PO SCH (09:00)
[2018-08-11] MEDS: Doxycycline 100 MG CAPSULE PO SCH (10:22)
--- NOTE | 2018-08-11 10:55 | Psychiatry History & Physical ---
Date of Encounter: 08/11/18 Time of Encounter: 08:15 History of Present Illness Patient Stated Chief Complaint: "I had a panic attackk and just feel really anxious. I was suicidal. Medicare Admission Attestation: For traditional Medicare patients the provided hospital inpatient services are reasonable and necessary and in the case of services not specified as inpatient-only under 42 CFR 419.22 (n), that they are appropriately provided as inpatient services in accordance 42 CFR 412.3. For Critical Access Hospital the patient may reasonably be expected to be discharged or transferred to a hospital within 96 hours after admission to the Critical Access Hospital. Admitted From: Emergency Dept Plans for Post Hospital Care: Home History of Present Illness: Ms. Brunner is a 52 year old female who was hospitalized for one day a week ago on 1A. At that time patient wanted Valium which had been discontinued by her OP provider. She was unhappy that she did not get it so asked to be discharged. At this admit patient presents similarly with increased anxiety, panic attack and suicidal ideation. Patient stated that she has been on her current medications for a long time and thinks that maybe they are making her worse. Patient is somewhat of a poor historian as she gives two different time frames for the doxycycline she stated she was on Patient has multiple health problems with hip dysplasia (per Patient) resulting in chronic pain. moderate COPD, S/P cataract surgery, cholecystectomy, hypertension and hypercholesterolemia. Patient takes Oxycodone QID and Neurontin for paiin and neuropathy. Patient reported she lives alone on SSI, but gets help from her children and ex . 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 Past Med Surg Social Fam HX - Past Medical History Medical history: arthritis, asthma, COPD, GERD, hyperlipidemia, hypertension, migraine, thyroid disease - Past Psychiatric History Psychiatric history: Reports: schizophrenia, previous psychiatric hospitalization Past psychiatric history details: Patient has had at least 4 prior hospitalization at this facility. Stated her first hospitalization was in 1990. Family psychiatric history: Unknown Family History of Suicide: Unknown - Past Surgical History Surgical History: cholecystectomy, hysterectomy, orthopedic, other, other - Social History Smoking Status: Former smoker Smokeless Tobacco Status: No Alcohol use: none Drug use: none - Family History Father Adopted: No Living Status: Hx Family Cardiac Disorders: Yes Hx Family Respiratory Disorders: Yes Hx Family Cancer: Yes (cervical, bowel, stomach, lungs and stomach cancer) Hx Family GI Disorders: Yes (cancer) Hx Family Endocrine Disorder: Yes (Diabetes) Hx Family Neuromuscular Disorders: Yes Hx Family Neurologic Disorders: Yes (Mother had muscular dystrophy) Hx Family Autoimmune Disorders: Yes Mother Adopted: No Living Status: Hx Family Cardiac Disorders: Yes Hx Family Endocrine Disorder: Yes Medications & Allergies Calcium Carbonate/Vitamin D3 [Calcium 600+D Softgel] 2 tab PO QAM 04/06/15 [History] Ziprasidone HCl [Geodon] 40 mg PO QAM 04/06/15 [History] Meloxicam [Mobic] 15 mg PO HS 03/16/17 [History] Omeprazole [PriLOSEC] 40 mg PO BID 03/16/17 [History] Aspirin 81 mg PO QAM #30 03/17/17 [Rx] Levothyroxine [Synthroid] 25 mcg PO 0630 03/25/18 [History] Multivitamin [One Daily Essential] 1 tab PO DAILY 03/25/18 [History] Simvastatin [Zocor] 10 mg PO HS 03/25/18 [History] Ziprasidone [Geodon] 160 mg PO HS 03/25/18 [History] BuPROPion SR (12 HR) [Wellbutrin SR] 150 mg PO BID 04/24/18 [History] Cyclobenzaprine [Flexeril] 10 mg PO Q8H 08/05/18 [History] Doxycycline Hyclate 100 mg PO BID 08/05/18 [History] Gabapentin [Neurontin] 600 mg PO TID 08/05/18 [History] OxyCODONE Immed Rel [Roxicodone 10 MG] 10 mg PO QID 08/05/18 [History] Venlafaxine XR (24 HR) [Effexor Xr] 75 mg PO DAILY 08/05/18 [History] hydroCHLOROthiazide [Hydrochlorothiazide] 12.5 mg PO DAILY 08/05/18 [History] Allergy/AdvReac Type Severity Reaction Status Date / Time acetaminophen [From Midol] Allergy Difficulty Verified 08/05/18 19:19 Breathing Buspirone [From BuSpar] Allergy Unresponsiv Verified 08/05/18 19:19 e ibuprofen Allergy Difficulty Verified 08/05/18 19:19 Breathing pamabrom [From Midol] Allergy Difficulty Verified 08/05/18 19:19 Breathing tramadol [From Ultram] Allergy Difficulty Verified 08/05/18 19:19 Breathing propoxyphene [From Darvon] AdvReac Nausea Verified 08/05/18 19:19 Review of Systems Constitutional: Reports: weight change Ears, Nose, Throat: Reports: throat pain, congestion Cardiovascular: Denies: chest pain, palpitations, dyspnea on exertion Respiratory: Reports: cough Gastrointestinal: Denies: abdominal pain, nausea, vomiting, diarrhea, constipation Genitourinary female: Denies: urgency, dysuria, frequency, abnormal menses, dyspareunia Musculoskeletal: Reports: joint pain, other Integumentary: Denies: rash, lesions, pruritus Neurological: Reports: weakness, paresthesias Psychiatric: Reports: depression, anxiety, suicidal ideation, difficulty concentrating, panic attacks Endocrine: Denies: fatigue, heat or cold intolerance Hematologic/Lymphatic: Denies: easy bruising, lymphadenopathy Allergic/Immunologic: Denies: urticaria, itchy eyes Exam - HEENT Head exam IM: Present: atraumatic Eye exam IM: Present: EOMI, normal appearance, PERRL ENT exam IM: Present: normal exam - Neurological Neurological exam: Present: CN II-XII intact - Respiratory Respiratory exam IM: Present: wheezes - GI/Abdominal GI/Abdominal exam IM: Present: normal bowel sounds, soft. Absent: tenderness - Extremities Extremities exam IM: Present: full ROM - Skin Skin exam IM: Present: dry, warm - Constitutional Vitals: Temp Pulse Resp BP Pulse Ox 98.2 F 90 16 122/85 100 08/11/18 09:00 08/11/18 09:00 08/11/18 09:00 08/11/18 09:00 08/11/18 09:00 General appearance: age & developmentally appropriate, well-groomed, thin - Musculoskeletal Gait: normal Station: relaxed Strength & Tone: normal for patient - Psychiatric Patient Orientation: Yes Person, Yes Time, Yes Place Level of alertness: Alert, Follows commands Behavior: calm, cooperative, anxious Psychomotor activity: Normal Eye Contact: Maintains Eye Contact Mood Description: Depressed, Anxious Patient description of mood: anxious Affect description: congruent with mood, anxious Speech Volume: Normal Speech pattern: normal rate, normal rhythm, normal tone, fluent, spontaneous, clear, coherent Language & Vocabulary: consistent with education Thought Process: Linear, Goal Oriented Thought Content: Yes Suicidal ideation Perceptual Disturbances: No Auditory hallucinations, No Visual hallucinations Attention Span Ability: Capable of Focused Attention Memory Description: Grossly Intact Patient Reliability: Questionable Historian Fund of knowledge: Yes abstraction ability, Yes average, Yes aware of current events Intelligence Estimate: Average Judgment: Fair Insight: Partial Results - Drug Levels and Toxicology Drug Levels and Toxicology: Drug Levels and Toxicity 08/10/18 08/10/18 16:41 16:54 Urine Opiates Screen Negative Acetaminophen < 10 L Ur Barbiturates Screen Negative Ur Phencyclidine Scrn Negative Ur Amphetamines Screen Negative U Benzodiazepines Scrn Negative Urine Cocaine Screen Negative U Marijuana (THC) Screen Negative Ethyl Alcohol < 10 - Labs Labs: Laboratory Last Values WBC 6.4 K/mcL (4.3-11.1) 08/10/18 16:41 RBC 4.37 M/mcL (3.82-4.97) 08/10/18 16:41 Hgb 13.8 g/dL (11.5-15.4) 08/10/18 16:41 Hct 40.2 % (35.3-44.9) 08/10/18 16:41 MCV 92.0 fL (83.0-100.0) 08/10/18 16:41 MCH 31.6 pg (28.0-33.3) 08/10/18 16:41 MCHC 34.3 g/dL (31.6-35.5) 08/10/18 16:41 RDW 11.4 % (11.5-14.5) L 08/10/18 16:41 Plt Count 349 K/mcL (140-400) 08/10/18 16:41 MPV 8.7 fL (9.4-12.4) L 08/10/18 16:41 Immature Gran % 0.3 % (0-4) 08/10/18 16:41 Seg Neutrophils % 68.3 % 08/10/18 16:41 Lymphocytes % 23.2 % 08/10/18 16:41 Monocytes % 7.5 % 08/10/18 16:41 Eosinophils % 0.2 % 08/10/18 16:41 Basophils % 0.5 % 08/10/18 16:41 Neutrophils # 4.4 K/mcL (1.6-8.9) 08/10/18 16:41 Lymphocytes # 1.5 K/mcL (0.6-4.6) 08/10/18 16:41 Monocytes # 0.5 K/mcL (0.0-1.3) 08/10/18 16:41 Eosinophils # 0.0 K/mcL (0.0-0.6) 08/10/18 16:41 Basophils # 0.0 K/mcL (0.0-0.2) 08/10/18 16:41 Sodium 136 mEq/L (136-145) 08/10/18 16:41 Potassium 3.4 mEq/L (3.5-5.1) L 08/10/18 16:41 Chloride 101 mEq/L (98-107) 08/10/18 16:41 Carbon Dioxide 27 mEq/L (23-29) 08/10/18 16:41 BUN 12 mg/dL (6-20) 08/10/18 16:41 Creatinine 0.82 mg/dL (0.60-1.20) 08/10/18 16:41 Est GFR ( Amer) > 60 (> 60) 08/10/18 16:41 Est GFR (Non-Af Amer) > 60 (> 60) 08/10/18 16:41 BUN/Creatinine Ratio 15 (6-26) 08/10/18 16:41 Glucose 109 mg/dL (70-105) H 08/10/18 16:41 Calculated Osmolality 282 (280-300) 08/10/18 16:41 Calcium 9.7 mg/dL (8.6-10.3) 08/10/18 16:41 TSH 1.437 mcIU/mL (0.340-5.600) 08/10/18 16:41 Urine Color Yellow (Yellow) 08/10/18 16:54 Urine Clarity Clear (Clear) 08/10/18 16:54 Urine pH 7.0 pH Units (5.0-8.0) 08/10/18 16:54 Ur Specific [place] 1.013 (1.010-1.025) 08/10/18 16:54 Urine Protein Negative mg/dL (Neg-Trace) 08/10/18 16:54 Urine Glucose (UA) Normal mg/dL (Normal) 08/10/18 16:54 Urine Ketones Negative mg/dL (Negative) 08/10/18 16:54 Urine Blood Negative (Negative) 08/10/18 16:54 Urine Nitrite Negative (Negative) 08/10/18 16:54 Urine Bilirubin Negative (Negative) 08/10/18 16:54 Urine Urobilinogen Normal mg/dL (Normal) 08/10/18 16:54 Ur Leukocyte Esterase Negative (Negative) 08/10/18 16:54 Salicylates < 2.5 mg/dL (15.0-30.0) L 08/10/18 16:41 Urine Opiates Screen Negative ng/mL (Bqfulc=664) 08/10/18 16:54 Acetaminophen < 10 mcg/mL (10-20) L 08/10/18 16:41 Ur Barbiturates Screen Negative ng/mL (Zylumh=071) 08/10/18 16:54 Ur Phencyclidine Scrn Negative ng/mL (Cutoff=25) 08/10/18 16:54 Ur Amphetamines Screen Negative ng/mL (Iemxjf=7118) 08/10/18 16:54 U Benzodiazepines Scrn Negative ng/mL (Clpvjj=552) 08/10/18 16:54 Urine Cocaine Screen Negative ng/mL (Cutoff= 300) 08/10/18 16:54 U Marijuana (THC) Screen Negative ng/mL (Cutoff = 50) 08/10/18 16:54 Ur Drug Screen Interp See Below 08/10/18 16:54 Ethyl Alcohol < 10 mg/dL (Less than 10) 08/10/18 16:41 - Impressions glucose slightly elevated, but is nonfasting Assessment and Plan (1) Schizoaffective disorder Current visit: No Status: Acute Plan: Admit inpatient for safety and stabilization, Close observation Additional Plan: Patient on several psychotropics including Wellbutrin SR 150mg BID. THis may be causing some of her anxiety and not feeling like she can relax. The Geodon may also be contributing to this. Will reduce dose of Wellbutrin and increase dose of Venlafaxine to see if this helps with her symptoms. Risks, benefits, side effects, alternatives discussed w/pt: Yes Patient agreeable to treatment: Yes Plans for Post Hospital Care: Home Estimated Length of Stay (Days): 7 Qualifiers: Schizoaffective disorder type: depressive Qualified Code(s): F25.1 - Schizoaffective disorder, depressive type
[2018-08-11] MEDS: Multivit/Ca/Min/Fe/FA 1 TAB TABLET PO SCH (12:16)
[2018-08-11] MEDS: Mag Hydrox/Al Hydrox/Simeth 30 ML UDC PO PRN (18:36)
[2018-08-11] MEDS: BuPROPion SR (12 HR) 100 MG TABLET PO SCH (20:17)
[2018-08-11] MEDS: Ziprasidone 80 MG CAPSULE PO SCH (20:19)
[2018-08-12] MEDS: hydrOXYzine pamoate 25 MG CAPSULE PO PRN ×2 (03:34→19:20)
[2018-08-12] MEDS: Levothyroxine 25 MCG TABLET PO SCH (06:35)
[2018-08-12] MEDS: hydroCHLOROthiazide 25 MG TABLET PO SCH (08:55)
[2018-08-12] MEDS: Aspirin 81 MG TAB.CHEW PO SCH (08:55)
[2018-08-12] MEDS: Gabapentin 300 MG CAPSULE PO SCH ×3 (08:55→20:53)
[2018-08-12] MEDS: Ziprasidone 20 MG CAPSULE PO SCH (08:55)
[2018-08-12] MEDS: Venlafaxine XR (24 HR) 150 MG CAP.ER.24H PO SCH (08:56)
[2018-08-12] MEDS: *HR* OxyCODONE Immed Rel 5 MG TABLET PO SCH ×4 (08:56→20:54)
[2018-08-12] MEDS: BuPROPion SR (12 HR) 100 MG TABLET PO SCH ×2 (08:56→20:54)
[2018-08-12] MEDS: Multivit/Ca/Min/Fe/FA 1 TAB TABLET PO SCH (11:34)
[2018-08-12] MEDS: Mag Hydrox/Al Hydrox/Simeth 30 ML UDC PO PRN (15:31)
[2018-08-12] MEDS: Nicotine 21 MG PATCH.TD24 TD SCH (16:23)
[2018-08-12] MEDS ORDERED: Chloraseptic Spray 177 ML BOTTLE MM PRN (19:38)
--- NOTE | 2018-08-12 19:40 | Psychiatry Progress Note ---
Date of Encounter: 08/12/18 Time of Encounter: 16:00 Subjective Interval history: Patient states that she is anxious and asks about Ativan, Valium, etc. Patient has had reductions in her Wellbutrin, Geodon and an increase in her Venlafaxin XR to 150g. Patient has not had discontinuation symptoms thus far with the reductions and depression and anxiety levels are about the same as yesterday. Suicidal ideation about at same level.Patient reports not sleepiing last night, but did not get the Trazodone PRN. She did get Hydroxyzine. Patient is very somatic. She c/o of a severe sore throat and inability to eat because of her sore throat. Patient currently is underweight. Review of Systems Constitutional: Reports: weight change Eyes: Denies: eye pain, vision change Ears, Nose, Throat: Reports: throat pain, dysphagia Cardiovascular: Denies: chest pain, palpitations, dyspnea on exertion Respiratory: Reports: cough Gastrointestinal: Denies: abdominal pain, nausea, vomiting, diarrhea, constipation Genitourinary female: Denies: urgency, dysuria, frequency, hematuria Musculoskeletal: Reports: back pain, joint pain, myalgia Integumentary: Denies: rash, lesions, change in hair/nails, pruritus Neurological: Reports: paresthesias Psychiatric: Reports: depression, anxiety, suicidal ideation, difficulty concentrating, panic attacks Endocrine: Reports: fatigue Hematologic/Lymphatic: Denies: easy bleeding, easy bruising Allergic/Immunologic: Denies: facial swelling, urticaria, itchy eyes Results - Vital Signs Vital Signs: Temp Pulse Resp BP Pulse Ox 99.8 F H 82 16 153/93 99 08/12/18 09:00 08/12/18 09:00 08/12/18 09:00 08/12/18 09:00 08/12/18 09:00 Assessment and Plan (1) Schizoaffective disorder Current visit: No Status: Acute Plan: Continue hospitalization, Close observation, Suicide Precautions per unit protocol, Encourage participation in unit milieu Additional Plan: Patient on several psychotropics including Wellbutrin SR 150mg BID. THis may be causing some of her anxiety and not feeling like she can relax. The Geodon may also be contributing to this. Will reduce dose of Wellbutrin and increase dose of Venlafaxine to see if this helps with her symptoms. Tolerating reductions and increase in Venlafaxine. Tomorrow will consider another reduction in Wellbutrin and in increase in Venlafaxine. Risks, benefits, side effects, alternatives discussed w/pt: Yes Patient agreeable to treatment: Yes Qualifiers: Schizoaffective disorder type: depressive Qualified Code(s): F25.1 - Schizoaffective disorder, depressive type (2) Sore throat Current visit: Yes Status: Acute Plan: Continue hospitalization, Close observation Additional Plan: Strep screen and anesthetic throat spray. Risks, benefits, side effects, alternatives discussed w/pt: Yes Patient agreeable to treatment: Yes Consult Discharge Plan - Plan Referrals: NONE,PCP [Primary Care Provider] - Psychiatry Exam - Constitutional Vitals: Temp Pulse Resp BP Pulse Ox 99.8 F H 82 16 153/93 99 08/12/18 09:00 08/12/18 09:00 08/12/18 09:00 08/12/18 09:00 08/12/18 09:00 General appearance: age & developmentally appropriate, thin - Musculoskeletal Gait: normal Station: stooped Strength & Tone: normal for patient - Psychiatric Patient Orientation: Yes Person, Yes Time, Yes Place, Yes Circumstance Level of alertness: Alert Behavior: cooperative, anxious Psychomotor activity: Normal Eye Contact: Maintains Eye Contact Mood Description: Depressed, Anxious Affect description: congruent with mood, full range Speech Volume: Normal Speech pattern: normal rate, normal rhythm, normal tone, fluent, spontaneous Language & Vocabulary: consistent with education Thought Process: Linear, Circumstantial Thought Content: Yes Suicidal ideation, No Homicidal ideation, No Overt delusions Perceptual Disturbances: No Auditory hallucinations, No Visual hallucinations Attention Span Ability: Capable of Focused Attention Memory Description: Grossly Intact Patient Reliability: Questionable Historian Fund of knowledge: Yes abstraction ability, Yes average, Yes aware of current events Intelligence Estimate: Average Judgment: Fair Insight: Partial
[2018-08-12] MEDS: Ziprasidone 80 MG CAPSULE PO SCH (20:56)
[2018-08-13] MEDS: Levothyroxine 25 MCG TABLET PO SCH (06:38)
[2018-08-13] MEDS: Nicotine 21 MG PATCH.TD24 TD SCH (08:16)
[2018-08-13] MEDS: hydroCHLOROthiazide 25 MG TABLET PO SCH (08:18)
[2018-08-13] MEDS: BuPROPion SR (12 HR) 100 MG TABLET PO SCH (08:18)
[2018-08-13] MEDS: *HR* OxyCODONE Immed Rel 5 MG TABLET PO SCH ×4 (08:18→21:39)
[2018-08-13] MEDS: Gabapentin 300 MG CAPSULE PO SCH ×3 (08:19→21:40)
[2018-08-13] MEDS: Aspirin 81 MG TAB.CHEW PO SCH (08:19)
[2018-08-13] MEDS: Venlafaxine XR (24 HR) 150 MG CAP.ER.24H PO SCH (08:19)
[2018-08-13] MEDS: Ziprasidone 20 MG CAPSULE PO SCH (08:19)
[2018-08-13] MEDS ORDERED: Nicotine 21 MG PATCH.TD24 TD SCH (09:00)
--- NOTE | 2018-08-13 10:45 | Psychiatry Progress Note ---
Date of Encounter: 08/13/18 Time of Encounter: 10:25 Subjective Interval history: Patient states she is still very anxious. States she slept lsat night, but woke up numb again. Patient not reporting any problems with the increase in Venlafaxine and decreases in Wellbutrin. Patient states that she is not having any suicidal thoughts today, but s just anxious. She has been on Valium in the past and does some drug seeking for her anxiety. she takes Oxycodone QID for pain, so not recommended that she take a benzo with the opiate. Patient denies S/V hallucinations. Admits to feeling paranoid, but nonspecific other than she is a person that like to be alone. Patient mentions that her got their PCP to schedule her with another psychiatrist in August her current OP doctor took her off of Valium. Will increase Venlafaxine to 225mg/d and decrease Wellbutrin to 150mg/d with intention of stopping the Wellbutrin. This should be a better way to treat patient's anxiety. Strep screen negative. Pt. continues to c/o sore throat and congestion. Review of Systems Constitutional: Denies: fever, chills, weakness, weight change Eyes: Denies: eye pain, vision change Ears, Nose, Throat: Reports: throat pain, dysphagia Cardiovascular: Denies: chest pain, palpitations, dyspnea on exertion Respiratory: Reports: cough Gastrointestinal: Denies: abdominal pain, nausea, vomiting, diarrhea, constipation Genitourinary female: Denies: urgency, dysuria, frequency, hematuria Musculoskeletal: Reports: joint pain, myalgia Integumentary: Denies: rash, lesions, change in hair/nails, pruritus Neurological: Denies: headache, weakness, numbness, memory loss Psychiatric: Reports: depression, anxiety, difficulty concentrating, panic attacks Endocrine: Reports: fatigue. Denies: heat or cold intolerance, polydipsia, polyuria Hematologic/Lymphatic: Denies: easy bleeding, easy bruising, lymphadenopathy Allergic/Immunologic: Denies: facial swelling, urticaria, itchy eyes Results - Vital Signs Vital Signs: Temp Pulse Resp BP Pulse Ox 98.9 F 93 18 132/90 98 08/13/18 09:00 08/13/18 09:00 08/13/18 09:00 08/13/18 09:00 08/13/18 09:00 - Impressions TSH 1.437 Patient on Synthroid and is very thin. Recommend f/u with her PCP to recheck TSH Assessment and Plan (1) Schizoaffective disorder Current visit: No Status: Acute Plan: Continue hospitalization, Close observation, Suicide Precautions per unit protocol, Encourage participation in unit milieu, Group Therapy, Monitor sleep, Monitor appetite Additional Plan: Patient on several psychotropics including Wellbutrin SR 150mg BID. THis may be causing some of her anxiety and not feeling like she can relax. The Geodon may also be contributing to this. Will reduce dose of Wellbutrin and increase dose of Venlafaxine to see if this helps with her symptoms. Tolerating reductions and increase in Venlafaxine. Tomorrow will consider another reduction in Wellbutrin and in increase in Venlafaxine. Risks, benefits, side effects, alternatives discussed w/pt: Yes Patient agreeable to treatment: Yes Qualifiers: Schizoaffective disorder type: depressive Qualified Code(s): F25.1 - Schizoaffective disorder, depressive type (2) Sore throat Current visit: Yes Status: Acute Plan: Continue hospitalization, Close observation, Suicide Precautions per unit protocol, Encourage participation in unit milieu, Group Therapy, Monitor sleep, Monitor appetite Additional Plan: Strep screen and anesthetic throat spray. Risks, benefits, side effects, alternatives discussed w/pt: Yes Patient agreeable to treatment: Yes Consult Discharge Plan - Plan Referrals: NONE,PCP [Primary Care Provider] - Psychiatry Exam - Constitutional Vitals: Temp Pulse Resp BP Pulse Ox 98.9 F 93 18 132/90 98 08/13/18 09:00 08/13/18 09:00 08/13/18 09:00 08/13/18 09:00 08/13/18 09:00 General appearance: age & developmentally appropriate, well-groomed, well- nourished - Musculoskeletal Gait: normal Station: relaxed Strength & Tone: normal for patient - Psychiatric Patient Orientation: Yes Person, Yes Time, Yes Place, Yes Circumstance Level of alertness: Alert Behavior: calm, cooperative, anxious Psychomotor activity: Normal Eye Contact: Minimal Contact Mood Description: Depressed, Anxious Affect description: congruent with mood, full range, constricted Speech Volume: Normal Speech pattern: normal rate, normal rhythm, normal tone, fluent, spontaneous Language & Vocabulary: consistent with education Thought Process: Goal Oriented, Circumstantial, Perseveration Thought Content: Yes Ideas of reference Perceptual Disturbances: No Auditory hallucinations, No Visual hallucinations Attention Span Ability: Capable of Focused Attention Memory Description: Grossly Intact Patient Reliability: Questionable Historian Fund of knowledge: Yes average, Yes aware of current events Intelligence Estimate: Average Judgment: Fair Insight: Partial
[2018-08-13] MEDS: Multivit/Ca/Min/Fe/FA 1 TAB TABLET PO SCH (11:09)
[2018-08-13] MEDS: hydrOXYzine pamoate 25 MG CAPSULE PO PRN (12:27)
[2018-08-13] MEDS ORDERED: chlorproMAZINE 25 MG TABLET PO ONE (17:12)
[2018-08-13] MEDS ORDERED: Nitroglycerin 0.4 MG TAB.SUBL SL ONE (19:35)
[2018-08-13 21:05] LABS: Basophils % 0.3 %; Eosinophils % 0.5 %; Hematocrit 34.2 % (35.3-44.9); Lymphocytes # 0.7 K/mcL (0.6-4.6); Lymphocytes % 16.8 %; Mean Corpuscular HGB Conc 35.7 g/dL (31.6-35.5); Mean Corpuscular Hemoglobin 31.8 pg (28.0-33.3); Mean Corpuscular Volume 89.1 fL (83.0-100.0); Mean Platelet Volume 8.5 fL (9.4-12.4); Monocytes # 0.3 K/mcL (0.0-1.3); Monocytes % 8.7 %; Neutrophils # 2.9 K/mcL (1.6-8.9); Platelet Count 253 K/mcL (140-400); Red Blood Count 3.84 M/mcL (3.82-4.97); Segmented Neutrophils % 73.7 %
[2018-08-13 21:06] LABS: Hemoglobin 12.2 g/dL (11.5-15.4)
[2018-08-13 21:31] LABS: BUN/Creatinine Ratio 13 (6-26); Blood Urea Nitrogen 8 mg/dL (6-20); Calcium 8.8 mg/dL (8.6-10.3); Carbon Dioxide 29 mEq/L (23-29); Chloride 94 mEq/L (98-107); Glucose 97 mg/dL (70-105); Osmolality,Calculated 264 (280-300); Potassium 3.7 mEq/L (3.5-5.1); Sodium 128 mEq/L (136-145); eGFR For Non-African Americans > 60 (> 60)
[2018-08-13] MEDS: Ziprasidone 80 MG CAPSULE PO SCH (21:40)
[2018-08-13 22:33] VITALS: BP 119/82
[2018-08-14] MEDS ORDERED: BuPROPion XL (24 HR) 150 MG TABLET PO SCH (09:00)
[2018-08-14] MEDS ORDERED: Venlafaxine XR (24 HR) 75 MG CAP.ER.24H PO SCH (09:00)
--- NOTE | 2018-08-14 12:05 | Discharge Summary ---
Date of Encounter: 08/13/18 Time of Encounter: 19:30 Diagnosis - Discharge Diagnosis (1) Schizoaffective disorder Status: Acute Qualifiers: Schizoaffective disorder type: depressive Qualified Code(s): F25.1 - Schizoaffective disorder, depressive type (2) Sore throat Status: Acute (3) Chest pain Status: Acute Comments: Patient highly anxkious c/o being numb and having chest pain. Hospitalist consulted Qualifiers: Chest pain type: unspecified Qualified Code(s): R07.9 - Chest pain, unspecified Medications - Discharge Medications Calcium Carbonate/Vitamin D3 [Calcium 600+D Softgel] 2 tab PO QAM 04/06/15 [History] Ziprasidone HCl [Geodon] 40 mg PO QAM 04/06/15 [History] Meloxicam [Mobic] 15 mg PO HS 03/16/17 [History] Omeprazole [PriLOSEC] 40 mg PO BID 03/16/17 [History] Aspirin 81 mg PO QAM #30 03/17/17 [Rx] Levothyroxine [Synthroid] 25 mcg PO DAILY 03/25/18 [History] Multivitamin [One Daily Essential] 1 tab PO DAILY 03/25/18 [History] Simvastatin [Zocor] 10 mg PO HS 03/25/18 [History] Ziprasidone [Geodon] 160 mg PO HS 03/25/18 [History] BuPROPion SR (12 HR) [Wellbutrin SR] 150 mg PO BID 04/24/18 [History] Cyclobenzaprine [Flexeril] 10 mg PO TID 08/05/18 [History] Gabapentin [Neurontin] 600 mg PO TID 08/05/18 [History] OxyCODONE Immed Rel [Roxicodone 10 MG] 10 mg PO QID 08/05/18 [History] Venlafaxine XR (24 HR) [Effexor Xr] 75 mg PO DAILY 08/05/18 [History] hydroCHLOROthiazide [Hydrochlorothiazide] 12.5 mg PO DAILY 08/05/18 [History] Oxymetazoline HCl [Nasal [place]] 2 spray NS DAILY 08/13/18 [History] [id number]/Sod Sul/NaCl/KCl/Asb/C [Plenvu Powder Packets] 1 each PO DAILY 08/13/18 [History] cloNIDine HCl [CloNIDine HCl] 0.1 mg PO HS 08/13/18 [History] Allergy/AdvReac Type Severity Reaction Status Date / Time acetaminophen [From Midol] Allergy Difficulty Verified 08/13/18 08:58 Breathing Buspirone [From BuSpar] Allergy Unresponsiv Verified 08/13/18 08:58 e ibuprofen Allergy Difficulty Verified 08/13/18 08:58 Breathing pamabrom [From Midol] Allergy Difficulty Verified 08/13/18 08:58 Breathing tramadol [From Ultram] Allergy Difficulty Verified 08/13/18 08:58 Breathing propoxyphene [From Darvon] AdvReac STOP Verified 08/13/18 08:58 BREATHING Results Procedures and tests throughout hospitalization: Completed Lab Orders Category Date Time Status Acetaminophen Stat Lab 08/10/18 16:41 Completed BMP [Basic Metabolic Panel] Stat Lab 08/13/18 20:52 Completed Basic Metabolic Panel Stat Lab 08/10/18 16:41 Completed CBC [Complete Blood Count] [HEME] Stat Lab 08/13/18 20:52 Completed Complete Blood Count [HEME] Stat Lab 08/10/18 16:41 Completed Drug Screen, Urine [UCHEM] Stat Lab 08/10/18 16:54 Completed Ethanol Stat Lab 08/10/18 16:41 Completed Salicylate Stat Lab 08/10/18 16:41 Completed Thyroid Stimulating Hormone Stat Lab 08/10/18 16:41 Completed Troponin I Stat Lab 08/13/18 20:52 Completed Urinalysis reflex Microscopic [URIN] Stat Lab 08/10/18 16:54 Completed Completed Microbiology Orders Category Date Time Status Streptococcus A Rapid Test [RM] Stat Lab 08/12/18 19:51 Completed - Impressions Priliminary results, cardiac enzymes no elevated or borderline no elevated Provider Date of admission: 08/10/18 18:37 Primary care physician: PCP NONE Consults: 08/13/18 19:13 Consult to Hospitalist [CONS] Stat Consulting Provider: Hospitalist Isaias Reason for Consult: Chest tightness, Numbess all over Time Notified: 19:15 Call Completed: Yes Discharging clinician: Mikaela Betancur Psychiatry Exam - Constitutional Vitals: Temp Pulse Resp BP Pulse Ox 99 F 82 18 119/82 100 08/13/18 22:32 08/13/18 22:32 08/13/18 22:32 08/13/18 22:32 08/13/18 20:28 General appearance: age & developmentally appropriate, well-groomed, well- nourished, thin - Musculoskeletal Gait: normal Station: relaxed Strength & Tone: normal for patient - Psychiatric Patient Orientation: Yes Person, Yes Time, Yes Place Level of alertness: Alert Behavior: nervous, anxious, agitated Psychomotor activity: Normal Eye Contact: Minimal Contact Mood Description: Depressed, Anxious Affect description: congruent with mood, full range Speech Volume: Normal Speech pattern: normal rate, normal rhythm, normal tone, fluent, spontaneous Language & Vocabulary: consistent with education Thought Process: Linear, Goal Oriented Thought Content: No Suicidal ideation, No Homicidal ideation, No Overt delusions, Yes Somatic delusion Perceptual Disturbances: No Auditory hallucinations, No Visual hallucinations Attention Span Ability: Capable of Focused Attention Memory Description: Grossly Intact Patient Reliability: Questionable Historian Fund of knowledge: Yes abstraction ability, Yes average, Yes aware of current events Intelligence Estimate: Average Judgment: Limited Insight: Partial Hospital Course Hospital course: Ms. Brunner is a 52 year old female who had a family visit and was found to be smoking in the bathroom. Patient's family asked to leave for bringing contraband into unit. Shortly after that event, patient began to c/o feeling numb and chest pain. Patient throughout her course on 1A has been anxious and seeking the restart of Valium which was recently discontinued per her OP provider. A hosptalist consult was initiated. EKG done on 1A unremarkable. Hospitalist made decision to transfer patient to medical floor for full work up of chest pain. Time spent discussing smoking cessation with patient: 3 to 10 minutes Does patient wish to continue nicotine replacement upon disc: No - Time Spent with Patient Total time spent providing and/or coordinating discharge services: Less than 30 minutes Assessment and Plan - Patient/Caregiver Discharge Instructions Activity: other Diet: regular diet Additional Instructions: Patient transferred to medical floor for w/u of chest pain - Follow up Plan Follow up with: NONE,PCP [Primary Care Provider] - Functional capacity at discharge: independent ambulation Overall status at discharge: other (Patient transferred to medical floor for workup of chest pain) Disposition: Admitted As Inpatient Quality - Multiple Antipsychotics Patient discharged on 2 or more antipsychotic medications: No Procedures - Procedures Procedures: Medication Management, Crisis Stabilization, Supportive Therapy
--- NOTE | 2018-08-14 12:22 | Psychiatry Progress Note ---
Date of Encounter: 08/14/18 Time of Encounter: 12:00 Subjective Interval history: Patient currently on medicine floor for workup of chest pain. Patient has been highly anxious and was given Valium 5mg this morning. Within an hour or so patient asked for Valium again. Patients' cardiac enzymes have come back normal, EKG unremarkable. Echo is scheduled. Patient reported to medicine staff that she has not had a BM in 5 days to laxative and stool softener ordered. Patient had a stress test in March of this year, so this will not be repeated as it was WNL. Pt. denies SI. Review of Systems Constitutional: Denies: fever, chills, weakness, weight change Eyes: Denies: eye pain, vision change Ears, Nose, Throat: Reports: congestion Cardiovascular: Denies: chest pain, palpitations, dyspnea on exertion Respiratory: Denies: cough, dyspnea, wheezes Gastrointestinal: Reports: constipation Musculoskeletal: Reports: myalgia Psychiatric: Reports: depression, anxiety, difficulty concentrating, panic attacks Results - Vital Signs Vital Signs: Temp Pulse Resp BP Pulse Ox 99 F 82 18 119/82 100 08/13/18 22:32 08/13/18 22:32 08/13/18 22:32 08/13/18 22:32 08/13/18 20:28 - Labs Labs: Laboratory Results - last 24 hr 08/13/18 08/13/18 08/13/18 20:52 20:52 20:52 WBC 3.9 L RBC 3.84 Hgb 12.2 D Hct 34.2 L MCV 89.1 MCH 31.8 MCHC 35.7 H RDW 11.0 L Plt Count 253 MPV 8.5 L Immature Gran % 0.0 Seg Neutrophils % 73.7 Lymphocytes % 16.8 Monocytes % 8.7 Eosinophils % 0.5 Basophils % 0.3 Neutrophils # 2.9 Lymphocytes # 0.7 Monocytes # 0.3 Eosinophils # 0.0 Basophils # 0.0 Sodium 128 L Potassium 3.7 Chloride 94 L Carbon Dioxide 29 BUN 8 Creatinine 0.60 Est GFR ( Amer) > 60 Est GFR (Non-Af Amer) > 60 BUN/Creatinine Ratio 13 Glucose 97 Calculated Osmolality 264 L Calcium 8.8 Troponin I < 0.03 - Impressions Troponin I < 0.03 Assessment and Plan (1) Schizoaffective disorder Status: Acute Risks, benefits, side effects, alternatives discussed w/pt: Yes Patient agreeable to treatment: Yes Qualifiers: Schizoaffective disorder type: depressive Qualified Code(s): F25.1 - Schizoaffective disorder, depressive type (2) Sore throat Status: Acute Risks, benefits, side effects, alternatives discussed w/pt: Yes Patient agreeable to treatment: Yes (3) Chest pain Status: Acute Plan: Continue hospitalization Additional Plan: Transfer back to once testing is complete and patient is determined to be medically stable and no longer in need of IM services Qualifiers: Chest pain type: unspecified Qualified Code(s): R07.9 - Chest pain, unspecified Consult Discharge Plan - Plan Instructions: Anxiety (DC) Additional Instructions: Patient once cleared by IM with negative cardiac work up may be transferred back to . Referrals: NONE,PCP [Primary Care Provider] - Psychiatry Exam - Constitutional Vitals: Temp Pulse Resp BP Pulse Ox 99 F 82 18 119/82 100 08/13/18 22:32 08/13/18 22:32 08/13/18 22:32 08/13/18 22:32 08/13/18 20:28 General appearance: age & developmentally appropriate, well-groomed, well- nourished, thin - Musculoskeletal Gait: normal Station: relaxed Strength & Tone: normal for patient - Psychiatric Patient Orientation: Yes Person, Yes Time, Yes Place Level of alertness: Alert Behavior: anxious, dramatic Psychomotor activity: Normal Eye Contact: Minimal Contact Mood Description: Depressed, Anxious Affect description: congruent with mood, full range Speech Volume: Normal Speech pattern: normal rate, normal rhythm, normal tone, fluent, spontaneous Language & Vocabulary: consistent with education Thought Process: Linear, Goal Oriented Thought Content: Yes Somatic delusion Perceptual Disturbances: No Auditory hallucinations, No Visual hallucinations Attention Span Ability: Capable of Focused Attention Memory Description: Grossly Intact Patient Reliability: Questionable Historian Fund of knowledge: Yes abstraction ability, Yes average, Yes aware of current events Intelligence Estimate: Average Judgment: Limited Insight: Partial
== END 2018-08-13 22:49 | disposition other institution (70) | DRG 750 ==
LOC: EMEROOARM 16:19 → 1ANU 18:37
PROVIDERS: ADMIT Psychiatry & Neurology Psychiatry; ATTEND Psychiatry & Neurology Psychiatry

== ENCOUNTER 2018-08-13 21:54 | Observation (INO) ==
[2018-08-14] MEDS ORDERED: Naloxone 0.4 MG/ML INJ IVP PRN (01:33)
[2018-08-14] MEDS ORDERED: 0.9 % Sodium Chloride 1,000 ML IVC SCH (01:45)
--- NOTE | 2018-08-14 01:52 | Internal Med History&Physical ---
Date of Encounter: 08/13/18 Time of Encounter: 20:30 Internal Medicine - H&P: HPI Chief complaint: Chest Pain Admitted From: Intrahospital Transfer Plans for Post Hospital Care: Home History of present illness: Ms. Brunner is a 52 year old female with past medical history significant for hypertension, hyperlipidemia, COPD, GERD, migraines, thyroid disease, anxiety, and schizophrenia who was admitted to [facility] Psychiatric unit and had sudden onset 10/10 left sided chest pain described as tightness that was relieved with nitro x3. Immediately prior to experiencing chest pain, patient was caught smoking cigarettes on the psychiatric unit brought in by visitors though patient denies tobacco use for past year. Patient had been denied visitors and phone calls while on psych unit due to not following directions. Pain did not radiate and no alleviating or exacerbating factors were identified besides nitro. Pain was associated with shortness of breath and nausea. Pain has improved and patient reports feeling much more comfortable now. Denies shortness of breath, abdominal pain, headache, bowel, or bladder changes. Has history of anxiety that sometimes causes chest tightness, however she states this episode felt different than her typical chest tightness. Had chest pain workup here in March including possible EKG change with cardiology consult and echocardiogram with 60% EF. EKG obtained in psychiatric unit showed sinus rhythm, similar to previous EKG on file. Past Med Surg Social Fam HX - Past Medical History Medical history: arthritis, asthma, COPD, GERD, hyperlipidemia, hypertension, migraine, thyroid disease Additional medical history: irritable bowel syndrome, Psychiatric history: anxiety, schizophrenia, previous psychiatric hospitalization - Past Surgical History Surgical History: cholecystectomy, hysterectomy, orthopedic, other, other Additional surgical history: right foot/ankle surgery, - Social History Smoking Status: Former smoker Smokeless Tobacco Status: No Alcohol use: none Drug use: none - Family History Father Adopted: No Living Status: Hx Family Cardiac Disorders: Yes Hx Family Respiratory Disorders: Yes Hx Family Cancer: Yes (cervical, bowel, stomach, lungs and stomach cancer) Hx Family GI Disorders: Yes (cancer) Hx Family Endocrine Disorder: Yes (Diabetes) Hx Family Neuromuscular Disorders: Yes Hx Family Neurologic Disorders: Yes (Mother had muscular dystrophy) Hx Family Autoimmune Disorders: Yes Mother Adopted: [place]: [place] Family Member Ethnicity: Non- Living Status: Age at : 59 Hx Family Cardiac Disorders: Yes Hx Family Respiratory Disorders: Yes Hx Family Cancer: No Hx Family GI Disorders: No Hx Family Genitourinary Disorders: No Hx Family Endocrine Disorder: Yes Hx Family Musculoskeletal Disorders: Yes Hx Family Psychosocial Disorders: No Internal Medicine - H&P: Meds Calcium Carbonate/Vitamin D3 [Calcium 600+D Softgel] 2 tab PO QAM 04/06/15 [History] Ziprasidone HCl [Geodon] 40 mg PO QAM 04/06/15 [History] Meloxicam [Mobic] 15 mg PO HS 03/16/17 [History] Omeprazole [PriLOSEC] 40 mg PO BID 03/16/17 [History] Aspirin 81 mg PO QAM #30 03/17/17 [Rx] Levothyroxine [Synthroid] 25 mcg PO DAILY 03/25/18 [History] Multivitamin [One Daily Essential] 1 tab PO DAILY 03/25/18 [History] Simvastatin [Zocor] 10 mg PO HS 03/25/18 [History] Ziprasidone [Geodon] 160 mg PO HS 03/25/18 [History] BuPROPion SR (12 HR) [Wellbutrin SR] 150 mg PO BID 04/24/18 [History] Cyclobenzaprine [Flexeril] 10 mg PO TID 08/05/18 [History] Gabapentin [Neurontin] 600 mg PO TID 08/05/18 [History] OxyCODONE Immed Rel [Roxicodone 10 MG] 10 mg PO QID 08/05/18 [History] Venlafaxine XR (24 HR) [Effexor Xr] 75 mg PO DAILY 08/05/18 [History] hydroCHLOROthiazide [Hydrochlorothiazide] 12.5 mg PO DAILY 08/05/18 [History] Oxymetazoline HCl [Nasal [place]] 2 spray NS DAILY 08/13/18 [History] [id number]/Sod Sul/NaCl/KCl/Asb/C [Plenvu Powder Packets] 1 each PO DAILY 08/13/18 [History] cloNIDine HCl [CloNIDine HCl] 0.1 mg PO HS 08/13/18 [History] Allergy/AdvReac Type Severity Reaction Status Date / Time acetaminophen [From Midol] Allergy Difficulty Verified 08/13/18 08:58 Breathing Buspirone [From BuSpar] Allergy Unresponsiv Verified 08/13/18 08:58 e ibuprofen Allergy Difficulty Verified 08/13/18 08:58 Breathing pamabrom [From Midol] Allergy Difficulty Verified 08/13/18 08:58 Breathing tramadol [From Ultram] Allergy Difficulty Verified 08/13/18 08:58 Breathing propoxyphene [From Darvon] AdvReac STOP Verified 08/13/18 08:58 BREATHING All Systems PM: A 10-system review of systems was performed and is negative for pertinent findings except as documented above in the HPI. - Constitutional Exam: General: Alert and oriented. In no acute distress. Skin:Normal color, no rash, no lesions. HEENT:Pupils equal, round and reactive. Cardiovascular:Normal S1 & S2, no rubs, murmurs or gallops. No JVD. Pulse regular. Lungs:Normal breath sounds, no wheezes or crackles. Abdomen:Soft, non-tender, no rigidity. Extremities:No deformity, no edema or tenderness, no joint swelling or clubbing. Neurological:Normal cognition and motor skills. Pulses:Carotid and radial pulses normal +2. Rest of the physical exam is non contributory. - Assessment and plan (1) Chest pain Current Visit: No Status: Acute Assessment and plan: Continuous director of cardiac rehabilitation. Initial troponin negative, serial troponins ordered. Cardiac diet. Qualifiers: Chest pain type: other chest pain Qualified Code(s): R07.89 - Other chest pain; R07.8 - Other chest pain (2) Hyponatremia Current Visit: Yes Status: Acute Assessment and plan: Acute on chronic. IVF ordered. Hold diuretics. Repeat labs in a.m. (3) Schizoaffective disorder Current Visit: Yes Status: Acute Assessment and plan: Management per psych team. Continue sitter. No visitors or phone calls. Qualifiers: Schizoaffective disorder type: unspecified Qualified Code(s): F25.9 - Schizoaffective disorder, unspecified (4) Hypertension Current Visit: Yes Status: Chronic Assessment and plan: Continue home medications once verified. Qualifiers: Hypertension type: unspecified Qualified Code(s): I10 - Essential (primary) hypertension (5) Hyperlipidemia Current Visit: Yes Status: Chronic Assessment and plan: Continue home medications once verified. Qualifiers: Hyperlipidemia type: unspecified Qualified Code(s): E78.5 - Hyperlipidemia, unspecified (6) Thyroid disease Current Visit: Yes Status: Chronic Assessment and plan: Continue home medications once verified. (7) GERD (gastroesophageal reflux disease) Current Visit: Yes Status: Acute Assessment and plan: Continue home medications once verified. Qualifiers: Esophagitis presence: esophagitis presence not specified Qualified Code(s): K21.9 - Gastro-esophageal reflux disease without esophagitis - Time Spent With Patient Total time spent is greater than 50% in coordination of care (as documented) at patient's floor/unit and/or counseling patient:
[2018-08-14 03:47] LABS: Basophils % 0.3 %; Eosinophils % 0.9 %; Hematocrit 32.8 % (35.3-44.9); Hemoglobin 11.7 g/dL (11.5-15.4); Immature Granulocytes % 0.3 % (0-4); Lymphocytes # 1.1 K/mcL (0.6-4.6); Lymphocytes % 33.8 %; Mean Corpuscular HGB Conc 35.7 g/dL (31.6-35.5); Mean Corpuscular Hemoglobin 32.1 pg (28.0-33.3); Mean Corpuscular Volume 90.1 fL (83.0-100.0); Mean Platelet Volume 8.7 fL (9.4-12.4); Monocytes # 0.4 K/mcL (0.0-1.3); Monocytes % 11.9 %; Neutrophils # 1.7 K/mcL (1.6-8.9); Platelet Count 268 K/mcL (140-400); Red Blood Count 3.64 M/mcL (3.82-4.97); Segmented Neutrophils % 52.8 %
[2018-08-14 03:55] LABS: BUN/Creatinine Ratio 12 (6-26); Blood Urea Nitrogen 7 mg/dL (6-20); Calcium 8.7 mg/dL (8.6-10.3); Carbon Dioxide 28 mEq/L (23-29); Chloride 97 mEq/L (98-107); Glucose 97 mg/dL (70-105); Osmolality,Calculated 268 (280-300); Potassium 3.6 mEq/L (3.5-5.1); Sodium 130 mEq/L (136-145); eGFR For Non-African Americans > 60 (> 60)
[2018-08-14] MEDS ORDERED: *HR* OxyCODONE Immed Rel 5 MG TABLET PO ONE (05:37)
[2018-08-14] MEDS: *HR* Enoxaparin 40 MG/0.4 ML SYRINGE SQ SCH (06:04)
[2018-08-14] MEDS ORDERED: Venlafaxine XR (24 HR) 75 MG CAP.ER.24H PO ONE (07:09)
[2018-08-14] MEDS ORDERED: BuPROPion SR (12 HR) 150 MG TABLET PO ONE (07:10)
--- NOTE | 2018-08-14 07:14 | Event Note ---
Date of Encounter: 08/14/18 Time of Encounter: 06:41 Notified by nurse of patient waking up with chest tightness and generalized bilateral numbness. Assessed patient at bedside. EKG obtained, sinus rhythm. Vitals stable. Patient describes chest tightness and numbness same as she has been experiencing past few days. Psych team has been adjusting medications. Will order one time dose of medications last adjusted by psych team and defer any further changes to psych team.
[2018-08-14] MEDS ORDERED: BuPROPion XL (24 HR) 150 MG TABLET PO SCH (09:00)
[2018-08-14] MEDS ORDERED: diazePAM 5 MG TABLET PO ONE (09:08)
[2018-08-14] MEDS: *HR* OxyCODONE Immed Rel 5 MG TABLET PO PRN (16:33)
[2018-08-14] MEDS ORDERED: *HR* OxyCODONE Immed Rel 5 MG TABLET PO SCH (17:00)
--- NOTE | 2018-08-14 17:52 | Internal Med Progress Note ---
Hospitalist Progress Note - Encounter Date of Encounter: 08/14/18 Time of Encounter: 17:49 - Subjective Interval History: Patient denies chest pain at this time. She appear anxious and think whenever anxiety increases then feel chest pressure. She is also asking for her home pain medicine. Review the lab with troponin 2 negative third is awaited. Denies fever chills nausea vomiting headache dizziness shortness of breath abdominal pain he urinary or bowel, - Exam Vitals: Temp Pulse Resp BP Pulse Ox 98.7 F 86 16 132/92 99 08/14/18 17:20 08/14/18 17:20 08/14/18 17:20 08/14/18 17:20 08/14/18 17:20 Exam: General: Alert and oriented. In no acute distress. Skin:Normal color, no rash, no lesions. HEENT:Pupils equal, round and reactive. Cardiovascular:Normal S1 & S2, no rubs, murmurs Lungs:Normal breath sounds, no wheezes or crackles. Abdomen:Soft, non-tender, no rigidity. Extremities:No deformity, no edema or tenderness, no joint swelling or clubbing. Neurological:Normal cognition and motor skills. - Assessment and Plan (1) Chest pain Current Visit: No Status: Acute Assessment and Plan: Atypical appeared most likely anxiety related. Continuous cardiac care unit nurse. Troponin 2 negative. Limited echocardiogram ordered. Reviewed the previous record and patient had echocardiogram and a stress test with no acute finding on March 2018. Continue aspirin and statin. Will discharge patient back to psychiatric service after getting echocardiogram report. (2) Hyponatremia Current Visit: Yes Status: Acute Assessment and Plan: Acute on chronic. Mild. Monitor BMP. Asymptomatic. (3) Hypertension Current Visit: Yes Status: Chronic Assessment and Plan: Continue home medications . Close monitoring (4) Schizoaffective disorder Current Visit: Yes Status: Acute Assessment and Plan: Management per psych team. Will transfer back to psych unit after getting medically cleared. As per psych avoid benzos. Denies any suicidal or homicidal thoughts or plan at this time. Talk to on-call psychiatrist and they agreed with the plan to accept her back once discharged from medical service. Continue sitter. (5) Hyperlipidemia Current Visit: Yes Status: Chronic Assessment and Plan: Continue statin. (6) Thyroid disease Current Visit: Yes Status: Chronic Assessment and Plan: Continue home medications . Is stable (7) GERD (gastroesophageal reflux disease) Current Visit: Yes Status: Acute Assessment and Plan: Continue home medications . - Time Spent with Patient Total time spent is greater than 50% in coordination of care (as documented) at patient's floor/unit and/or counseling patient: 25 - 35 minutes Plan of Care Discussed with: patient Internal Medicine: Result - Labs CBC & Chem 7: 08/14/18 02:57 08/14/18 02:57 Labs: Short CBC 08/14/18 Range/Units 02:57 WBC 3.2 L (4.3-11.1) K/mcL Hgb 11.7 (11.5-15.4) g/dL Hct 32.8 L (35.3-44.9) % Plt Count 268 (140-400) K/mcL Neutrophils # 1.7 (1.6-8.9) K/mcL BMP 08/14/18 02:57 Sodium 130 L Potassium 3.6 Chloride 97 L Carbon Dioxide 28 BUN 7 Creatinine 0.59 L Glucose 97 Calcium 8.7 Cardiac Enzymes 08/14/18 08/14/18 Range/Units 02:57 09:07 Troponin I < 0.03 < 0.03 (< 0.04) ng/mL - Impressions Impressions Echocardiogram Limited Views 08/14/18 12:50 Impressions: Limited Echo. LVEF 65%. Normal LV chamber size, wall thickness and systolic function. Low RA pressure. Left Ventricular Wall Motion: Rest Echo Findings All wall segments showed normal motion. Findings: Study Quality * Technically adequate exam. ECG Findings * Normal sinus rhythm. Left Ventricle * LVEF 65%. * Normal LV chamber size, wall thickness and systolic function. Right Ventricle * Normal right ventricular structure and function. Left Atrium * Normal left atrial size. Right Atrium * Normal right atrial size. Tricuspid Valve * Estimated RA pressure is 3 mmHg. Consult Discharge Plan - Plan Referrals: NONE,PCP [Primary Care Provider] - (1) Chest pain Qualifiers: Chest pain type: other chest pain Qualified Code(s): R07.89 - Other chest pain; R07.8 - Other chest pain (3) Hypertension Qualifiers: Hypertension type: unspecified Qualified Code(s): I10 - Essential (primary) hypertension (4) Schizoaffective disorder Qualifiers: Schizoaffective disorder type: unspecified Qualified Code(s): F25.9 - Schizoaffective disorder, unspecified (5) Hyperlipidemia Qualifiers: Hyperlipidemia type: unspecified Qualified Code(s): E78.5 - Hyperlipidemia, unspecified (7) GERD (gastroesophageal reflux disease) Qualifiers: Esophagitis presence: esophagitis presence not specified Qualified Code(s): K21.9 - Gastro-esophageal reflux disease without esophagitis
[2018-08-14] MEDS: Gabapentin 300 MG CAPSULE PO SCH (20:03)
[2018-08-14] MEDS ORDERED: cloNIDine HCl 0.1 MG TABLET PO SCH (21:00)
[2018-08-14] MEDS ORDERED: Ziprasidone 80 MG CAPSULE PO SCH (21:00)
[2018-08-14] MEDS: BuPROPion SR (12 HR) 150 MG TABLET PO SCH (21:28)
[2018-08-15] MEDS: *HR* OxyCODONE Immed Rel 5 MG TABLET PO PRN ×2 (02:00→15:01)
[2018-08-15] MEDS: *HR* Enoxaparin 40 MG/0.4 ML SYRINGE SQ SCH (05:53)
[2018-08-15] MEDS ORDERED: Levothyroxine 25 MCG TABLET PO SCH (06:30)
[2018-08-15 07:54] LABS: Basophils % 0.6 %; Eosinophils % 0.3 %; Hematocrit 39.2 % (35.3-44.9); Immature Granulocytes % 0.3 % (0-4); Lymphocytes # 0.7 K/mcL (0.6-4.6); Lymphocytes % 21.2 %; Mean Corpuscular HGB Conc 35.7 g/dL (31.6-35.5); Mean Corpuscular Hemoglobin 32.3 pg (28.0-33.3); Mean Corpuscular Volume 90.3 fL (83.0-100.0); Mean Platelet Volume 8.7 fL (9.4-12.4); Monocytes # 0.3 K/mcL (0.0-1.3); Monocytes % 9.9 %; Neutrophils # 2.3 K/mcL (1.6-8.9); Platelet Count 336 K/mcL (140-400); Red Blood Count 4.34 M/mcL (3.82-4.97); Red Cell Distribution Width 10.8 % (11.5-14.5); Segmented Neutrophils % 67.7 %
[2018-08-15 08:12] LABS: BUN/Creatinine Ratio 14 (6-26); Blood Urea Nitrogen 10 mg/dL (6-20); Calcium 9.2 mg/dL (8.6-10.3); Carbon Dioxide 26 mEq/L (23-29); Chloride 98 mEq/L (98-107); Glucose 99 mg/dL (70-105); Osmolality,Calculated 269 (280-300); Potassium 3.6 mEq/L (3.5-5.1); Sodium 130 mEq/L (136-145); Troponin I < 0.03 ng/mL (< 0.04); eGFR For Non-African Americans > 60 (> 60)
[2018-08-15] MEDS: BuPROPion SR (12 HR) 150 MG TABLET PO SCH (08:55)
[2018-08-15] MEDS: Gabapentin 300 MG CAPSULE PO SCH ×2 (08:56→15:01)
[2018-08-15] MEDS ORDERED: Venlafaxine XR (24 HR) 37.5 MG CAP.ER.24H PO SCH (09:00)
[2018-08-15] MEDS ORDERED: BuPROPion SR (12 HR) 150 MG TABLET PO SCH (09:00)
[2018-08-15] MEDS ORDERED: hydroCHLOROthiazide 25 MG TABLET PO SCH (09:00)
[2018-08-15] MEDS ORDERED: Ziprasidone 20 MG CAPSULE PO SCH (09:00)
[2018-08-15] MEDS ORDERED: Aspirin 81 MG TAB.CHEW PO SCH (09:00)
--- NOTE | 2018-08-15 11:02 | Discharge Summary ---
- NOTES TO OUTPATIENT PROVIDER Notes to Outpatient Provider: Follow-up with PCP within one week. Follow-up with psychiatry within 1-2 weeks Orders not resulted at time of discharge: Pending orders 08/14/18 06:44 ECG 12 lead ECG [ECG] Stat Date of Encounter: 08/15/18 Time of Encounter: 14:34 - Discharge Diagnosis (1) Chest pain Priority: Primary Status: Acute Assessment and Plan: Atypical appeared most likely anxiety related. Serial troponin has been negative. No acute finding on Limited echocardiogram . Reviewed the previous record and patient had complete echocardiogram and a stress test with no acute ischemic finding on March 2018. Continue aspirin and statin. Qualifiers: Chest pain type: other chest pain Qualified Code(s): R07.89 - Other chest pain; R07.8 - Other chest pain (2) Hyponatremia Priority: Secondary Status: Acute Assessment and Plan: Chronic. Most likely drug related as patient has been on multiple antipsychotic medicine. Not symptomatic. Monitor by PCP (3) Hypertension Priority: Secondary Status: Chronic Assessment and Plan: Continue home medications . Close monitoring Qualifiers: Hypertension type: unspecified Qualified Code(s): I10 - Essential (primary) hypertension (4) Schizoaffective disorder Priority: Secondary Status: Acute Assessment and Plan: Patient got admitted to psych unit and got transferred under medical team for chest pain evaluation that has been ruled out ACS. Psychiatrist was consulted. Initially there was planned to transfer back to psychiatry unit but today psychiatrist reevaluated the patient with recommendation to discharge home with outpatient follow-up with psychiatry office in 2 weeks. He also gave prescription for baclofen as needed to relieve her anxiety. [place] slip was cleared by psychiatric team. . Qualifiers: Schizoaffective disorder type: unspecified Qualified Code(s): F25.9 - Schizoaffective disorder, unspecified (5) Hyperlipidemia Priority: Secondary Status: Chronic Assessment and Plan: Continue statin. Qualifiers: Hyperlipidemia type: unspecified Qualified Code(s): E78.5 - Hyperlipidemia, unspecified (6) Thyroid disease Priority: Secondary Status: Chronic Assessment and Plan: Continue home medications . Is stable (7) GERD (gastroesophageal reflux disease) Priority: Secondary Status: Acute Assessment and Plan: Continue home medications . Qualifiers: Esophagitis presence: esophagitis presence not specified Qualified Code(s): K21.9 - Gastro-esophageal reflux disease without esophagitis Hospital course: Ms. Brunner is a 52 year old female was transferred from psych illness to medical floor for the evaluation of atypical chest pain. Ruled out ACS. Please see details in diagnosis section of discharge summary. Patient is being discharged home under physical and psychological stable condition with stable vitals. Patient is not suicidal or homicidal at the time of discharge. Psychiatry cleared the patient to go home from psych standpoint and also discontinued sitter. Discharge discussed with: patient, nurse, application support consultant - Time Spent with Patient Total time spent providing and/or coordinating discharge services: - Discharge Medications Home Medications: Calcium Carbonate/Vitamin D3 [Calcium 600+D Softgel] 2 tab PO QAM 04/06/15 [History] Ziprasidone HCl [Geodon] 40 mg PO QAM 04/06/15 [History] Meloxicam [Mobic] 15 mg PO HS 03/16/17 [History] Omeprazole [PriLOSEC] 40 mg PO BID 03/16/17 [History] Aspirin 81 mg PO QAM #30 03/17/17 [Rx] Levothyroxine [Synthroid] 25 mcg PO DAILY 03/25/18 [History] Multivitamin [One Daily Essential] 1 tab PO DAILY 03/25/18 [History] Simvastatin [Zocor] 10 mg PO HS 03/25/18 [History] Ziprasidone [Geodon] 160 mg PO HS 03/25/18 [History] BuPROPion SR (12 HR) [Wellbutrin SR] 150 mg PO BID 04/24/18 [History] Gabapentin [Neurontin] 600 mg PO TID 08/05/18 [History] OxyCODONE Immed Rel [Roxicodone 10 MG] 10 mg PO QID 08/05/18 [History] Venlafaxine XR (24 HR) [Effexor Xr] 75 mg PO DAILY 08/05/18 [History] hydroCHLOROthiazide [Hydrochlorothiazide] 12.5 mg PO DAILY 08/05/18 [History] Old4720/Sod Sul/NaCl/KCl/Asb/C [Plenvu Powder Packets] 1 packet PO DAILY 08/13/18 [History] cloNIDine HCl [CloNIDine HCl] 0.1 mg PO HS 08/13/18 [History] Allergies/Adverse Reactions: Allergy/AdvReac Type Severity Reaction Status Date / Time acetaminophen [From Midol] Allergy Difficulty Verified 08/13/18 08:58 Breathing Buspirone [From BuSpar] Allergy Unresponsiv Verified 08/13/18 08:58 e ibuprofen Allergy Difficulty Verified 08/13/18 08:58 Breathing pamabrom [From Midol] Allergy Difficulty Verified 08/13/18 08:58 Breathing tramadol [From Ultram] Allergy Difficulty Verified 08/13/18 08:58 Breathing propoxyphene [From Darvon] AdvReac STOP Verified 08/13/18 08:58 BREATHING Date of admission: 08/13/18 23:25 Primary care physician: PCP NONE Consults: 08/14/18 02:03 Consult to Psychiatry [CONS] Routine Consulting Provider: Psychiatry Laine Reason consult: Other Other reason and/or additional details: Admitted from 1A psychiatric unit due to chest pain. Psych team to continue to follow. - Constitutional Vitals: Temp Pulse Resp BP Pulse Ox 98.4 F 93 17 147/101 99 08/15/18 06:00 08/15/18 06:00 08/15/18 06:00 08/15/18 06:00 08/15/18 06:00 Exam: General: Alert and oriented. In no acute distress. Skin:Normal color, no rash, no lesions. HEENT:Pupils equal, round and reactive. Cardiovascular:Normal S1 & S2, no rubs, murmurs Lungs:Normal breath sounds, no wheezes or crackles. Abdomen:Soft, non-tender, no rigidity. Extremities:No deformity, no edema or tenderness, no joint swelling or clubbing. Neurological:Normal cognition and motor skills. - Patient Status Disposition: Home, Self-Care Condition: Good Overall status at discharge: patient is back to baseline - Discharge Instructions Follow Up With: NONE,PCP [Primary Care Provider] - - Diet and Activity Activity: increase activity as tolerated Diet: advance to your usual diet
[2018-08-15 13:26] VITALS: BP 118/76
--- NOTE | 2018-08-15 15:47 | Consult Note ---
Date of Encounter: 08/15/18 Time of Encounter: 13:30 Assessment & Recommendation (1) Schizoaffective disorder Status: Acute Qualifiers: Schizoaffective disorder type: depressive Qualified Code(s): F25.1 - Schizoaffective disorder, depressive type (2) Anxiety about health Status: Acute History of Present Illness Patient: known to practice within the last 3 years Requesting Physician: Major Way MD Reason for consult: I have had panic attacks History of present illness: Ms. Brunner is a 52 year old female Complaint: I am having a panic attack. History of present illness the patient is known to our service. I previously saw her on August 05 and . The patient then went home and she reported more anxiety the 05/10 and . The patient developed increased anxiety and was hospitalized on the locked psychiatric unit. Then patient was transferred to the medical unit. Today's consultation is to request the need for ongoing psychiatric hospitalization and to evaluate for suicidality. The patient reports that she is anxious ever since being taken off benzodiazepines she says that given a choice between pain medicines and benzodiazepines, she would choose the pain medicines. The patient had previously had a stay on our unit and had discussed with her nurse practitioner her treatment regimen grades patient is now seeking a new provider of mental health services. It is not clear whether this is but it may be at [facility]. Nonetheless the patient reports significant anxiety and reported anxiety at the time she was seen. She reported no suicidal ideation and she reported improved mood. Part of the reason was that her bought a small dog that she named . Patient would like to return home so that she can spend time with her . She also notes that her birthday is tomorrow The patient was previously willing to consider baclofen and the treatment of her anxiety but she would like this on an as-needed basis she notes that she is sensitive to medications as she is a rather thin individual. She notes gabapentin at 600 mg 3 times a day was too much or too strong for her. . The patient agreed to the treatment plan CC: Major Way MD Past Med Surg Social Fam HX - Past Medical History Medical history: arthritis, asthma, COPD, GERD, hyperlipidemia, hypertension, migraine, thyroid disease - Past Psychiatric History Psychiatric history: Reports: previous psychiatric hospitalization - Past Surgical History Surgical History: cholecystectomy, hysterectomy, orthopedic, other, other - Social History Smoking Status: Former smoker Smokeless Tobacco Status: No Alcohol use: none Drug use: none Occupational status: disabled Current living situation: Home, With Family Activity Level: Independent ambulation Recent Out of Country Travel Within the Last 8 Weeks: No Exposure or Possible Exposure to Illness During Travel: No - Family History Father Adopted: No Living Status: Hx Family Cardiac Disorders: Yes Hx Family Respiratory Disorders: Yes Hx Family Cancer: Yes (cervical, bowel, stomach, lungs and stomach cancer) Hx Family GI Disorders: Yes (cancer) Hx Family Endocrine Disorder: Yes (Diabetes) Hx Family Neuromuscular Disorders: Yes Hx Family Neurologic Disorders: Yes (Mother had muscular dystrophy) Hx Family Autoimmune Disorders: Yes Mother Adopted: [place]: [place] Family Member Ethnicity: Non- Living Status: Age at : 59 Hx Family Cardiac Disorders: Yes Hx Family Respiratory Disorders: Yes Hx Family Cancer: No Hx Family GI Disorders: No Hx Family Genitourinary Disorders: No Hx Family Endocrine Disorder: Yes Hx Family Musculoskeletal Disorders: Yes Hx Family Psychosocial Disorders: No Medications & Allergies Calcium Carbonate/Vitamin D3 [Calcium 600+D Softgel] 2 tab PO QAM 04/06/15 [History] Ziprasidone HCl [Geodon] 40 mg PO QAM 04/06/15 [History] Meloxicam [Mobic] 15 mg PO HS 03/16/17 [History] Omeprazole [PriLOSEC] 40 mg PO BID 03/16/17 [History] Aspirin 81 mg PO QAM #30 03/17/17 [Rx] Levothyroxine [Synthroid] 25 mcg PO DAILY 03/25/18 [History] Multivitamin [One Daily Essential] 1 tab PO DAILY 03/25/18 [History] Simvastatin [Zocor] 10 mg PO HS 03/25/18 [History] Ziprasidone [Geodon] 160 mg PO HS 03/25/18 [History] BuPROPion SR (12 HR) [Wellbutrin SR] 150 mg PO BID 04/24/18 [History] Gabapentin [Neurontin] 600 mg PO TID 08/05/18 [History] OxyCODONE Immed Rel [Roxicodone 10 MG] 10 mg PO QID 08/05/18 [History] Venlafaxine XR (24 HR) [Effexor Xr] 75 mg PO DAILY 08/05/18 [History] hydroCHLOROthiazide [Hydrochlorothiazide] 12.5 mg PO DAILY 08/05/18 [History] Iba6190/Sod Sul/NaCl/KCl/Asb/C [Plenvu Powder Packets] 1 packet PO DAILY 08/13/18 [History] cloNIDine HCl [CloNIDine HCl] 0.1 mg PO HS 08/13/18 [History] Allergy/AdvReac Type Severity Reaction Status Date / Time acetaminophen [From Midol] Allergy Difficulty Verified 08/13/18 08:58 Breathing Buspirone [From BuSpar] Allergy Unresponsiv Verified 08/13/18 08:58 e ibuprofen Allergy Difficulty Verified 08/13/18 08:58 Breathing pamabrom [From Midol] Allergy Difficulty Verified 08/13/18 08:58 Breathing tramadol [From Ultram] Allergy Difficulty Verified 08/13/18 08:58 Breathing propoxyphene [From Darvon] AdvReac STOP Verified 08/13/18 08:58 BREATHING Review of Systems Psychiatric: Reports: anxiety Psychiatry Exam - Constitutional Vitals: Temp Pulse Resp BP Pulse Ox 98.9 F 98 17 118/76 100 08/15/18 13:26 08/15/18 13:26 08/15/18 13:26 08/15/18 13:26 08/15/18 13:26 General appearance: age & developmentally appropriate, well-groomed, well- nourished - Musculoskeletal Gait: other Station: shaky Strength & Tone: normal for patient - Psychiatric Patient Orientation: Yes Person, Yes Time, Yes Place Level of alertness: Alert Behavior: cooperative, anxious Psychomotor activity: Normal Eye Contact: Maintains Eye Contact Mood Description: Anxious Affect description: congruent with mood, full range, anxious Speech Volume: Normal Speech pattern: normal rate, normal rhythm, normal tone, fluent, spontaneous Language & Vocabulary: consistent with education Thought Process: Linear, Goal Oriented Thought Content: No Suicidal ideation, No Homicidal ideation, No Overt delusions Perceptual Disturbances: No Auditory hallucinations, No Visual hallucinations Attention Span Ability: Capable of Focused Attention Memory Description: Grossly Intact Patient Reliability: Reliable Historian Fund of knowledge: Yes abstraction ability, Yes aware of current events Intelligence Estimate: Average Judgment: Fair Insight: Partial Results - Labs Labs: Laboratory Last Values WBC 3.5 K/mcL (4.3-11.1) L 08/15/18 07:19 RBC 4.34 M/mcL (3.82-4.97) 08/15/18 07:19 Hgb 14.0 g/dL (11.5-15.4) D 08/15/18 07:19 Hct 39.2 % (35.3-44.9) 08/15/18 07:19 MCV 90.3 fL (83.0-100.0) 08/15/18 07:19 MCH 32.3 pg (28.0-33.3) 08/15/18 07:19 MCHC 35.7 g/dL (31.6-35.5) H 08/15/18 07:19 RDW 10.8 % (11.5-14.5) L 08/15/18 07:19 Plt Count 336 K/mcL (140-400) 08/15/18 07:19 MPV 8.7 fL (9.4-12.4) L 08/15/18 07:19 Immature Gran % 0.3 % (0-4) 08/15/18 07:19 Seg Neutrophils % 67.7 % 08/15/18 07:19 Lymphocytes % 21.2 % 08/15/18 07:19 Monocytes % 9.9 % 08/15/18 07:19 Eosinophils % 0.3 % 08/15/18 07:19 Basophils % 0.6 % 08/15/18 07:19 Neutrophils # 2.3 K/mcL (1.6-8.9) 08/15/18 07:19 Lymphocytes # 0.7 K/mcL (0.6-4.6) 08/15/18 07:19 Monocytes # 0.3 K/mcL (0.0-1.3) 08/15/18 07:19 Eosinophils # 0.0 K/mcL (0.0-0.6) 08/15/18 07:19 Basophils # 0.0 K/mcL (0.0-0.2) 08/15/18 07:19 Sodium 130 mEq/L (136-145) L 08/15/18 07:19 Potassium 3.6 mEq/L (3.5-5.1) 08/15/18 07:19 Chloride 98 mEq/L (98-107) 08/15/18 07:19 Carbon Dioxide 26 mEq/L (23-29) 08/15/18 07:19 BUN 10 mg/dL (6-20) 08/15/18 07:19 Creatinine 0.70 mg/dL (0.60-1.20) 08/15/18 07:19 Est GFR ( Amer) > 60 (> 60) 08/15/18 07:19 Est GFR (Non-Af Amer) > 60 (> 60) 08/15/18 07:19 BUN/Creatinine Ratio 14 (6-26) 08/15/18 07:19 Glucose 99 mg/dL (70-105) 08/15/18 07:19 Calculated Osmolality 269 (280-300) L 08/15/18 07:19 Calcium 9.2 mg/dL (8.6-10.3) 08/15/18 07:19 Troponin I < 0.03 ng/mL (< 0.04) 08/15/18 07:19 - Impressions Impressions Echocardiogram Limited Views 08/14/18 12:50 Impressions: Limited Echo. LVEF 65%. Normal LV chamber size, wall thickness and systolic function. Low RA pressure. Left Ventricular Wall Motion: Rest Echo Findings All wall segments showed normal motion. Findings: Study Quality * Technically adequate exam. ECG Findings * Normal sinus rhythm. Left Ventricle * LVEF 65%. * Normal LV chamber size, wall thickness and systolic function. Right Ventricle * Normal right ventricular structure and function. Left Atrium * Normal left atrial size. Right Atrium * Normal right atrial size. Tricuspid Valve * Estimated RA pressure is 3 mmHg. Consult Discharge Plan - Plan Referrals: NONE,PCP [Primary Care Provider] - (No PCP )
--- NOTE | 2018-08-16 14:23 | Electrocardiograph Report ---
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
== END 2018-08-15 15:27 | disposition home or self-care (01) ==
LOC: 2ANU
PROVIDERS: ADMIT Family Medicine; ATTEND Family Medicine

== ENCOUNTER 2019-07-19 14:03 | Observation (INO) ==
[2019-07-19] MEDS ORDERED: Lidocaine 4% CREAM (LMX) 5 GM TP ONE (16:01)
[2019-07-19] MEDS ORDERED: *HR* OxyCODONE Immed Rel 5 MG TABLET PO STA (16:31)
[2019-07-19] MEDS ORDERED: 0.9 % Sodium Chloride 1,000 ML IVC ONE (16:53)
[2019-07-19 17:05] LABS: Basophils % 0.2 %; Eosinophils % 1.4 %; Hematocrit 41.1 % (35.3-44.9); Immature Granulocytes % 0.2 % (0-4); Lymphocytes % 32.3 %; Mean Corpuscular HGB Conc 34.1 g/dL (31.6-35.5); Mean Corpuscular Hemoglobin 32.5 pg (28.0-33.3); Mean Corpuscular Volume 95.4 fL (83.0-100.0); Mean Platelet Volume 8.2 fL (9.4-12.4); Monocytes % 10.9 %; Platelet Count 328 K/mcL (140-400); Red Blood Count 4.31 M/mcL (3.82-4.97); Red Cell Distribution Width 12.2 % (11.5-14.5); White Blood Count 4.4 K/mcL (4.3-11.1)
[2019-07-19 17:06] LABS: Eosinophils # 0.1 K/mcL (0.0-0.6); Lymphocytes # 1.4 K/mcL (0.6-4.6); Monocytes # 0.5 K/mcL (0.0-1.3); Neutrophils # 2.4 K/mcL (1.6-8.9)
[2019-07-19 17:27] LABS: BUN/Creatinine Ratio 13 (6-26); Blood Urea Nitrogen 11 mg/dL (6-20); Calcium 10.1 mg/dL (8.6-10.3); Carbon Dioxide 27 mEq/L (23-29); Chloride 107 mEq/L (98-107); Glucose 91 mg/dL (70-105); Osmolality,Calculated 289 (280-300); Potassium 3.7 mEq/L (3.5-5.1); Sodium 140 mEq/L (136-145); eGFR For African Americans > 60 (> 60); eGFR For Non-African Americans > 60 (> 60)
[2019-07-19] MEDS ORDERED: Naloxone 0.4 MG/ML INJ IVP PRN (18:09)
[2019-07-19 18:15] LABS: Troponin I < 0.03 ng/mL (< 0.04)
[2019-07-19] MEDS: *HR* OxyCODONE Immed Rel 5 MG TABLET PO PRN (21:44)
[2019-07-20] MEDS: *HR* HYDROcodone/Acet 5/325 mg TABLET PO PRN ×4 (01:08→20:06)
[2019-07-20 03:57] LABS: Bilirubin,Urine Negative (Negative); Blood,Urine Negative (Negative); Clarity,Urine Clear (Clear); Color,Urine Yellow (Yellow); Glucose,Urine (UA) Normal (Normal); Ketones,Urine Negative (Negative); Leukocyte Esterase,Urine Negative (Negative); Nitrite,Urine Negative (Negative); Protein,Urine Negative (Neg-Trace); Urobilinogen,Urine Normal (Normal)
[2019-07-20] MEDS: *HR* OxyCODONE Immed Rel 5 MG TABLET PO PRN ×4 (04:11→22:38)
[2019-07-20] MEDS ORDERED: *HR* Heparin 5,000 UNIT/ML VIAL SQ SCH (06:00)
[2019-07-20] MEDS: Acetaminophen 325 MG TABLET PO PRN (06:29)
[2019-07-20] MEDS: Levothyroxine 25 MCG TABLET PO SCH (06:29)
[2019-07-21] MEDS: *HR* HYDROcodone/Acet 5/325 mg TABLET PO PRN ×3 (02:07→13:25)
[2019-07-21] MEDS: Acetaminophen 325 MG TABLET PO PRN (03:09)
[2019-07-21] MEDS: *HR* OxyCODONE Immed Rel 5 MG TABLET PO PRN ×3 (04:55→16:12)
[2019-07-21] MEDS: Levothyroxine 25 MCG TABLET PO SCH (04:55)
[2019-07-21 15:21] VITALS: BP 126/82
== END 2019-07-21 18:37 | disposition home or self-care (01) ==
LOC: EMEROOARM 14:03 → 3NENU 14:03 → SUATTDRO 17:55 → 3NENU 20:59
PROVIDERS: ADMIT Internal Medicine; ATTEND Family Medicine

== ENCOUNTER 2019-10-04 09:24 | Observation (INO) ==
[2019-10-04 10:03] LABS: Basophils % 0.4 %; Eosinophils % 0.4 %; Hematocrit 40.4 % (35.3-44.9); Hemoglobin 14.5 g/dL (11.5-15.4); INR 0.9; Immature Granulocytes % 0.2 % (0-4); Lymphocytes # 1.2 K/mcL (0.6-4.6); Lymphocytes % 23.1 %; Mean Corpuscular HGB Conc 35.9 g/dL (31.6-35.5); Mean Corpuscular Hemoglobin 32.8 pg (28.0-33.3); Mean Corpuscular Volume 91.4 fL (83.0-100.0); Mean Platelet Volume 8.9 fL (9.4-12.4); Monocytes # 0.4 K/mcL (0.0-1.3); Monocytes % 7.8 %; Neutrophils # 3.4 K/mcL (1.6-8.9); Platelet Count 341 K/mcL (140-400); Prothrombin Time 10.7 Seconds (9.4-12.1); Red Blood Count 4.42 M/mcL (3.82-4.97); Red Cell Distribution Width 11.7 % (11.5-14.5); Segmented Neutrophils % 68.1 %
[2019-10-04 10:20] LABS: BUN/Creatinine Ratio 8 (6-26); Blood Urea Nitrogen 6 mg/dL (6-20); Calcium 9.5 mg/dL (8.6-10.3); Carbon Dioxide 28 mEq/L (23-29); Chloride 105 mEq/L (98-107); Glucose 107 mg/dL (70-105); Osmolality,Calculated 284 (280-300); Potassium 4.6 mEq/L (3.5-5.1); Sodium 138 mEq/L (136-145); eGFR For African Americans > 60 (> 60); eGFR For Non-African Americans > 60 (> 60)
[2019-10-04 10:21] LABS: Troponin I < 0.03 ng/mL (< 0.04)
[2019-10-04] MEDS ORDERED: *HR* FentaNYL (PF) 100 MCG/2 ML VIAL IVP ONE (11:00)
[2019-10-04] MEDS ORDERED: Ondansetron ODT 4 MG TAB.RAPDIS SL PRN (13:41)
[2019-10-04 14:21] LABS: Magnesium 1.9 mg/dL (1.6-2.6); Phosphorous 3.5 mg/dL (2.7-4.5)
[2019-10-04] MEDS ORDERED: Ringers Solution, Lactated 1,000 ML IVC ONE (14:24)
[2019-10-04] MEDS: Ipratropium/Albuterol Neb 3 ML IH SCH ×2 (15:23→20:05)
[2019-10-04 18:46] LABS: Adenovirus Not Detected (Not Detect); Bordetella Pertussis Not Detected (Not Detect); Chlamydophila pneumoniae Not Detected (Not Detect); Coronavirus 229E Not Detected (Not Detect); Coronavirus HKU1 Not Detected (Not Detect); Coronavirus NL63 Not Detected (Not Detect); Coronavirus OC43 Not Detected (Not Detect); Human Metapneumovirus Not Detected (Not Detect); Human Rhinovirus/Enterovirus Not Detected (Not Detect); Influenza A Subtype 2009 H1 Not Detected (Not Detect); Influenza B Not Detected (Not Detect); Mycoplasma pneumoniae Not Detected (Not Detect); Parainfluenza Virus 1 Not Detected (Not Detect); Parainfluenza Virus 2 Not Detected (Not Detect); Parainfluenza Virus 3 Not Detected (Not Detect); Parainfluenza Virus 4 Not Detected (Not Detect); Respiratory Syncytial Virus Not Detected (Not Detect)
[2019-10-04] MEDS: *HR* OxyCODONE Immed Rel 5 MG TABLET PO PRN ×2 (18:54→23:15)
[2019-10-04] MEDS: diazePAM 10 MG TABLET PO SCH (19:33)
[2019-10-04] MEDS: Gabapentin 300 MG CAPSULE PO SCH (19:33)
[2019-10-04] MEDS: Perphenazine 2 MG TABLET PO SCH (19:33)
[2019-10-05] MEDS: Ipratropium/Albuterol Neb 3 ML IH SCH ×4 (00:02→11:12)
[2019-10-05 02:44] LABS: Basophils % 0.5 %; Eosinophils # 0.1 K/mcL (0.0-0.6); Eosinophils % 1.9 %; Hematocrit 40.7 % (35.3-44.9); Hemoglobin 13.9 g/dL (11.5-15.4); Immature Granulocytes % 0.2 % (0-4); Lymphocytes # 1.4 K/mcL (0.6-4.6); Lymphocytes % 33.8 %; Mean Corpuscular HGB Conc 34.2 g/dL (31.6-35.5); Mean Corpuscular Hemoglobin 32.9 pg (28.0-33.3); Mean Corpuscular Volume 96.2 fL (83.0-100.0); Mean Platelet Volume 8.9 fL (9.4-12.4); Monocytes # 0.4 K/mcL (0.0-1.3); Monocytes % 10.3 %; Neutrophils # 2.2 K/mcL (1.6-8.9); Platelet Count 258 K/mcL (140-400); Red Blood Count 4.23 M/mcL (3.82-4.97); Red Cell Distribution Width 11.8 % (11.5-14.5); Segmented Neutrophils % 53.3 %; White Blood Count 4.2 K/mcL (4.3-11.1)
[2019-10-05 03:05] LABS: BUN/Creatinine Ratio 14 (6-26); Blood Urea Nitrogen 14 mg/dL (6-20); Calcium 9.2 mg/dL (8.6-10.3); Carbon Dioxide 27 mEq/L (23-29); Chloride 107 mEq/L (98-107); Glucose 133 mg/dL (70-105); Osmolality,Calculated 298 (280-300); Potassium 3.3 mEq/L (3.5-5.1); Sodium 143 mEq/L (136-145); eGFR For African Americans > 60 (> 60); eGFR For Non-African Americans 57 (> 60)
[2019-10-05] MEDS: *HR* OxyCODONE Immed Rel 5 MG TABLET PO PRN (03:50)
[2019-10-05] MEDS ORDERED: Levothyroxine 25 MCG TABLET PO SCH (06:30)
[2019-10-05 07:54] VITALS: BP 118/75
[2019-10-05] MEDS: diazePAM 10 MG TABLET PO SCH (08:09)
[2019-10-05] MEDS: Perphenazine 2 MG TABLET PO SCH (08:09)
[2019-10-05] MEDS: Gabapentin 300 MG CAPSULE PO SCH (08:09)
[2019-10-05] MEDS ORDERED: Multivit/Ca/Min/Fe/FA 1 TAB TABLET PO SCH (09:00)
== END 2019-10-05 11:42 | disposition home or self-care (01) ==
LOC: EMEROOARM 09:24 → 3BNU 09:24 → SUATTDRO 11:24 → 3BNU 12:15
PROVIDERS: ADMIT Internal Medicine; ATTEND Family Medicine

== ENCOUNTER 2020-04-12 09:50 | Observation (INO) ==
[2020-04-12] MEDS ORDERED: Ondansetron 4 MG/2 ML VIAL IVP ONE (10:40)
[2020-04-12 11:10] LABS: Bilirubin,Urine Negative (Negative); Blood,Urine Negative (Negative); Clarity,Urine Clear (Clear); Color,Urine Yellow (Yellow); Glucose,Urine (UA) Normal (Normal); Ketones,Urine Negative (Negative); Leukocyte Esterase,Urine Trace (Negative); Mucus,Urine Few per lpf (None-Few); Nitrite,Urine Negative (Negative); PH,Urine 7.5 pH Units (5.0-8.0); Protein,Urine Negative (Neg-Trace); RBC,Urine 0-3 per hpf (0-3); Specific Gravity,Urine 1.018 (1.010-1.025); Squamous Epithelial Cell,Urine Few per hpf (None-Few); Urobilinogen,Urine Normal (Normal); WBC,Urine 0-3 per hpf (0-3)
[2020-04-12 11:20] LABS: Basophils % 0.4 %; Eosinophils % 0.4 %; Hematocrit 41.7 % (35.3-44.9); Hemoglobin 14.4 g/dL (11.5-15.4); Lymphocytes # 0.9 K/mcL (0.6-4.6); Lymphocytes % 20.6 %; Mean Corpuscular HGB Conc 34.5 g/dL (31.6-35.5); Mean Corpuscular Hemoglobin 33.3 pg (28.0-33.3); Mean Corpuscular Volume 96.5 fL (83.0-100.0); Mean Platelet Volume 9.3 fL (9.4-12.4); Monocytes # 0.3 K/mcL (0.0-1.3); Monocytes % 7.6 %; Neutrophils # 3.2 K/mcL (1.6-8.9); Platelet Count 280 K/mcL (140-400); Red Blood Count 4.32 M/mcL (3.82-4.97); Red Cell Distribution Width 11.4 % (11.5-14.5); White Blood Count 4.5 K/mcL (4.3-11.1)
[2020-04-12 11:36] LABS: BUN/Creatinine Ratio 15 (6-26); Blood Urea Nitrogen 12 mg/dL (6-20); Calcium 9.4 mg/dL (8.6-10.3); Carbon Dioxide 26 mEq/L (23-29); Chloride 105 mEq/L (98-107); Glucose 96 mg/dL (70-105); Osmolality,Calculated 286 (280-300); Potassium 4.1 mEq/L (3.5-5.1); Sodium 138 mEq/L (136-145); eGFR For African Americans > 60 (> 60); eGFR For Non-African Americans > 60 (> 60)
[2020-04-12] MEDS ORDERED: *HR* OxyCODONE/APAP 5/325 TABLET PO ONE (11:59)
[2020-04-12] MEDS ORDERED: Naloxone 0.4 MG/ML INJ IVP PRN (15:13)
[2020-04-12] MEDS ORDERED: Ondansetron ODT 4 MG TAB.RAPDIS SL PRN (15:13)
[2020-04-12 15:51] LABS: Prothrombin Time 10.9 Seconds (9.4-12.1)
[2020-04-12] MEDS ORDERED: methylPREDNISolone 125 MG/2 ML VIAL IM ONE (16:01)
[2020-04-12] MEDS: *HR* OxyCODONE Immed Rel 5 MG TABLET PO PRN ×2 (16:03→22:06)
[2020-04-12] MEDS ORDERED: diazePAM 10 MG TABLET PO PRN (16:56)
[2020-04-12] MEDS ORDERED: methylPREDNISolone 125 MG/2 ML VIAL IVP ONE (17:00)
[2020-04-12 17:57] LABS: Folate 19.7 ng/mL (3.0-16.0)
[2020-04-12] MEDS ORDERED: Perphenazine 8 MG TABLET PO SCH (21:00)
[2020-04-12] MEDS: Gabapentin 300 MG CAPSULE PO SCH (21:23)
[2020-04-12] MEDS: FLUoxetine 20 MG CAPSULE PO SCH (21:23)
[2020-04-13] MEDS: *HR* OxyCODONE Immed Rel 5 MG TABLET PO PRN ×2 (05:24→12:48)
[2020-04-13] MEDS ORDERED: *HR* Heparin 5,000 UNIT/ML VIAL SQ SCH (06:00)
[2020-04-13] MEDS ORDERED: Levothyroxine 25 MCG TABLET PO SCH (06:30)
[2020-04-13 06:45] LABS: Hematocrit 42.2 % (35.3-44.9); Hemoglobin 14.5 g/dL (11.5-15.4); Mean Corpuscular HGB Conc 34.4 g/dL (31.6-35.5); Mean Corpuscular Hemoglobin 32.7 pg (28.0-33.3); Mean Platelet Volume 9.2 fL (9.4-12.4); Platelet Count 267 K/mcL (140-400); Red Blood Count 4.44 M/mcL (3.82-4.97); Red Cell Distribution Width 11.3 % (11.5-14.5); White Blood Count 3.7 K/mcL (4.3-11.1)
[2020-04-13 07:06] LABS: Alanine Aminotransferase 7 Units/L (7-52); Albumin/Globulin Ratio 1.7 (1.1-2.2); Alkaline Phosphatase 55 Units/L (34-104); Aspartate Amino Transferase 10 Units/L (13-39); BUN/Creatinine Ratio 21 (6-26); Bilirubin,Total 0.4 mg/dL (0.3-1.0); Blood Urea Nitrogen 14 mg/dL (6-20); Calcium 9.4 mg/dL (8.6-10.3); Carbon Dioxide 23 mEq/L (23-29); Chloride 105 mEq/L (98-107); Globulin 2.3 g/dL (2.4-3.5); Glucose 106 mg/dL (70-105); Osmolality,Calculated 281 (280-300); Potassium 3.8 mEq/L (3.5-5.1); Sodium 135 mEq/L (136-145); Total Protein 6.3 g/dL (6.4-8.9); eGFR For African Americans > 60 (> 60); eGFR For Non-African Americans > 60 (> 60)
[2020-04-13] MEDS: FLUoxetine 20 MG CAPSULE PO SCH (08:50)
[2020-04-13] MEDS: Gabapentin 300 MG CAPSULE PO SCH (08:50)
[2020-04-13] MEDS ORDERED: lisinopriL 10 MG TABLET PO SCH (09:00)
[2020-04-13] MEDS ORDERED: Cyanocobalamin (B-12) 1,000 MCG/ML VIAL SQ ONE (11:11)
[2020-04-13 15:36] VITALS: BP 121/79
== END 2020-04-13 16:18 | disposition home health service (06) ==
LOC: 3BNU 09:50 → EMEROOARM 09:50 → 3BNU 14:58
PROVIDERS: ADMIT Student in an Organized Health Care Education/Training Program; ATTEND Student in an Organized Health Care Education/Training Program

== ENCOUNTER 2020-04-17 10:28 | Observation (INO) ==
[2020-04-17] MEDS ORDERED: Aspirin 81 MG TAB.CHEW PO ONE (10:45)
[2020-04-17] MEDS ORDERED: methylPREDNISolone 125 MG/2 ML VIAL IVP ONE (10:52)
[2020-04-17] MEDS ORDERED: Ipratropium/Albuterol Neb 3 ML IH ONE (10:52)
[2020-04-17] MEDS ORDERED: Morphine Sulfate 2 MG/ML SYRINGE IVP ONE ×2 (11:27→13:55)
[2020-04-17 11:39] LABS: Basophils % 0.4 %; Eosinophils % 0.8 %; Hematocrit 40.7 % (35.3-44.9); Hemoglobin 14.3 g/dL (11.5-15.4); Immature Granulocytes % 0.2 % (0-4); Lymphocytes # 1.1 K/mcL (0.6-4.6); Lymphocytes % 22.4 %; Mean Corpuscular HGB Conc 35.1 g/dL (31.6-35.5); Mean Corpuscular Hemoglobin 33.4 pg (28.0-33.3); Mean Corpuscular Volume 95.1 fL (83.0-100.0); Mean Platelet Volume 9.2 fL (9.4-12.4); Monocytes # 0.5 K/mcL (0.0-1.3); Monocytes % 9.7 %; Neutrophils # 3.4 K/mcL (1.6-8.9); Platelet Count 295 K/mcL (140-400); Red Blood Count 4.28 M/mcL (3.82-4.97); Red Cell Distribution Width 11.6 % (11.5-14.5); Segmented Neutrophils % 66.5 %; White Blood Count 5.1 K/mcL (4.3-11.1)
[2020-04-17 11:46] LABS: Activated Partial Thrombo Time 46.1 Seconds (26.0-36.0)
[2020-04-17] MEDS ORDERED: Isovue-370 500 ML BOTTLE IVP ONE (11:55)
[2020-04-17] MEDS ORDERED: 0.9 % Sodium Chloride 1,000 ML IVC ONE (11:55)
[2020-04-17 12:00] LABS: BUN/Creatinine Ratio 16 (6-26); Blood Urea Nitrogen 12 mg/dL (6-20); Calcium 9.4 mg/dL (8.6-10.3); Carbon Dioxide 24 mEq/L (23-29); Chloride 106 mEq/L (98-107); Glucose 100 mg/dL (70-105); Osmolality,Calculated 280 (280-300); Potassium 3.6 mEq/L (3.5-5.1); Sodium 135 mEq/L (136-145); Troponin I < 0.03 ng/mL (< 0.04); eGFR For African Americans > 60 (> 60); eGFR For Non-African Americans > 60 (> 60)
[2020-04-17 12:14] LABS: Thyroid Stimulating Hormone 0.507 mcIU/mL (0.340-5.600)
[2020-04-17] MEDS ORDERED: Naloxone 0.4 MG/ML INJ IVP PRN (14:21)
[2020-04-17] MEDS ORDERED: Perflutren Lipid Microsphere 1.3 ML in 0.9 % Sodium Chloride 8.7 ML IVP PRN (14:21)
[2020-04-17] MEDS: *HR* Heparin 5,000 UNIT/ML VIAL SQ SCH (17:34)
[2020-04-17] MEDS: Morphine Sulfate 2 MG/ML SYRINGE IVP PRN ×2 (17:34→21:46)
[2020-04-18 01:40] LABS: Hematocrit 36.7 % (35.3-44.9); Mean Corpuscular HGB Conc 34.6 g/dL (31.6-35.5); Mean Corpuscular Hemoglobin 33.3 pg (28.0-33.3); Mean Corpuscular Volume 96.3 fL (83.0-100.0); Mean Platelet Volume 9.4 fL (9.4-12.4); Platelet Count 260 K/mcL (140-400); Red Blood Count 3.81 M/mcL (3.82-4.97); Red Cell Distribution Width 11.6 % (11.5-14.5); White Blood Count 4.2 K/mcL (4.3-11.1)
[2020-04-18 01:42] LABS: Hemoglobin 12.7 g/dL (11.5-15.4)
[2020-04-18 02:01] LABS: BUN/Creatinine Ratio 26 (6-26); Blood Urea Nitrogen 18 mg/dL (6-20); Carbon Dioxide 24 mEq/L (23-29); Chloride 107 mEq/L (98-107); Cholesterol 131 mg/dL (< 200); Glucose 164 mg/dL (70-105); HDL Cholesterol 43 mg/dL (40-59); LDL Cholesterol,Calculated 73 mg/dL (< 100); Magnesium 1.9 mg/dL (1.6-2.6); Osmolality,Calculated 292 (280-300); Sodium 138 mEq/L (136-145); Triglycerides 74 mg/dL (< 150); eGFR For African Americans > 60 (> 60); eGFR For Non-African Americans > 60 (> 60)
[2020-04-18] MEDS: Morphine Sulfate 2 MG/ML SYRINGE IVP PRN ×3 (02:09→11:09)
[2020-04-18] MEDS: *HR* Heparin 5,000 UNIT/ML VIAL SQ SCH ×2 (05:29→16:49)
[2020-04-18] MEDS ORDERED: Regadenoson 0.4 MG/5 ML SYRINGE IVP ONE (07:01)
[2020-04-18] MEDS ORDERED: diazePAM 10 MG TABLET PO PRN (12:26)
[2020-04-18] MEDS ORDERED: tiZANidine 4 MG TABLET PO PRN (12:26)
[2020-04-18] MEDS: Gabapentin 300 MG CAPSULE PO SCH ×2 (14:15→21:03)
[2020-04-18] MEDS: *HR* OxyCODONE/APAP 5/325 TABLET PO PRN ×2 (14:15→21:03)
[2020-04-18] MEDS: Levothyroxine 25 MCG TABLET PO SCH (14:15)
[2020-04-18] MEDS: lisinopriL 10 MG TABLET PO SCH (14:15)
[2020-04-18] MEDS: FLUoxetine 20 MG CAPSULE PO SCH ×2 (14:15→21:04)
[2020-04-18] MEDS ORDERED: Sennosides/Docusate Sodium TABLET PO SCH (21:00)
[2020-04-19] MEDS: Levothyroxine 25 MCG TABLET PO SCH (05:55)
[2020-04-19] MEDS: *HR* Heparin 5,000 UNIT/ML VIAL SQ SCH (06:17)
[2020-04-19] MEDS ORDERED: Regadenoson 0.4 MG/5 ML SYRINGE IVP ONE (06:35)
[2020-04-19] MEDS ORDERED: Cyanocobalamin (B-12) 1,000 MCG TABLET PO SCH (09:00)
[2020-04-19] MEDS ORDERED: Multivit/Ca/Min/Fe/FA 1 TAB TABLET PO SCH (09:00)
[2020-04-19] MEDS: FLUoxetine 20 MG CAPSULE PO SCH (09:06)
[2020-04-19] MEDS: lisinopriL 10 MG TABLET PO SCH (09:07)
[2020-04-19] MEDS: Gabapentin 300 MG CAPSULE PO SCH (09:07)
[2020-04-19] MEDS: *HR* OxyCODONE/APAP 5/325 TABLET PO PRN ×2 (09:08→14:29)
[2020-04-19 10:08] LABS: Basophils % 0.3 %; Eosinophils % 0.5 %; Hematocrit 44.1 % (35.3-44.9); Immature Granulocytes % 0.3 % (0-4); Lymphocytes # 1.2 K/mcL (0.6-4.6); Lymphocytes % 18.8 %; Mean Corpuscular HGB Conc 34.2 g/dL (31.6-35.5); Mean Corpuscular Hemoglobin 32.3 pg (28.0-33.3); Mean Corpuscular Volume 94.4 fL (83.0-100.0); Mean Platelet Volume 9.1 fL (9.4-12.4); Monocytes # 0.5 K/mcL (0.0-1.3); Monocytes % 7.7 %; Neutrophils # 4.6 K/mcL (1.6-8.9); Platelet Count 297 K/mcL (140-400); Red Blood Count 4.67 M/mcL (3.82-4.97); Red Cell Distribution Width 11.6 % (11.5-14.5); Segmented Neutrophils % 72.4 %
[2020-04-19 10:18] LABS: BUN/Creatinine Ratio 24 (6-26); Blood Urea Nitrogen 17 mg/dL (6-20); Calcium 9.9 mg/dL (8.6-10.3); Carbon Dioxide 25 mEq/L (23-29); Chloride 103 mEq/L (98-107); Glucose 87 mg/dL (70-105); Osmolality,Calculated 281 (280-300); Sodium 135 mEq/L (136-145); eGFR For African Americans > 60 (> 60); eGFR For Non-African Americans > 60 (> 60)
[2020-04-19 10:41] LABS: Hemoglobin 15.1 g/dL (11.5-15.4); White Blood Count 6.4 K/mcL (4.3-11.1)
[2020-04-19 11:24] VITALS: BP 120/81
== END 2020-04-19 14:34 | disposition home health service (06) ==
LOC: EMEROOARM 10:28 → 2ANU 10:28 → SUATTDRO 14:21 → 2ANU 14:51
PROVIDERS: ADMIT Student in an Organized Health Care Education/Training Program; ATTEND Internal Medicine